=== PATIENT | female | born 1950 | race Caucasian/White ===

== ENCOUNTER 2020-04-21 09:22 | Outpatient (CLI) | payer MEDICARE, SELFPAY ==
[2020-04-21 10:04] LABS: Hemoglobin A1C 6.5 % (<5.7)
[2020-04-21 10:05] LABS: Alanine Aminotransferase 34 U/L (14-59); Albumin Level 3.6 g/dL (3.4-5.0); Alkaline Phosphatase 76 U/L (46-116); Anion Gap 10.8 mmol/L (7-16); Aspartate Amino Transferase 26 U/L (15-37); Bilirubin,Total 0.7 mg/dL (0.00-1.00); Blood Urea Nitrogen 13 mg/dL (7-18); Calcium 8.5 mg/dL (8.5-10.1); Carbon Dioxide 28 mmol/L (21-32); Chloride 104 mmol/L (98-108); Estimated Glomerular Filt Rate > 60; Glucose 124 mg/dL (70-99); Osmolality Calculated 289 mOsm/kg (285-295); Potassium 3.8 mmol/L (3.5-5.1); Sodium 139 mmol/L (136-145); Total Protein 6.6 g/dL (6.4-8.2)
[2020-04-27 08:54] LABS: Creatinine Urine 124.14 mg/dL (40-278)
[2020-04-27 09:05] LABS: Microalbumin Urine Random < 1.3 mg/L
== END 2020-04-21 09:23 | disposition home or self-care (01) ==
LOC: CHSLAB 09:27
PROVIDERS: PCP Internal Medicine; Visit Provider Nurse Practitioner Family
DX: E11.9 Type 2 diabetes mellitus without complications (principal)
CPT/HCPCS: 36415; 80053; 82043; 83036

== ENCOUNTER 2020-04-27 08:08 | Outpatient (CLI) | payer MEDICARE, OTHER, SELFPAY ==
--- NOTE | ~2020-04-27 | DEXA_ITS ---
BMD(1) Young-Adult(2) Age-Matched(3) Region (g/cm2) T-score Z-score WHO Classification L1 1.106 -0.3 0.8 Normal L2 1.202 -0.1 1.0 Normal L3 1.264 0.4 1.5 Normal L4 1.306 0.7 1.8 Normal L1-L4 1.230 0.3 1.4 Normal Trend: L1-L4 Change vs Change vs Measured Age BMD(1) Baseline Previous Date ([age]) (g/cm2) (%) (%) 04[age]27/2020 [age] 1.230 -4.6* 1.2 07/22/2013 [age] 1.216 -5.7* -5.7* 11/05/2009 [age] 1.289 baseline - * - Indicates significant change based on 95% confidence interval. 1 - Statistically 68% of repeat scans fall within 1SD (+- 0.010 g/cm2 for AP Spine L1-L4) 2 - [place] (Combined NHANES (ages 20-30) / Zuffle (ages 20-40)) AP Spine Reference Population (v112) 3 - Matched for Age, Weight (females 25-100 kg), Ethnic 11 - World Health Organization - Definition of Osteoporosis and Osteopenia for Women: Normal = T-score at or above -1.0 SD; Osteopenia = T-score between -1.0 and -2.5 SD; Osteoporosis = T-score at or below -2.5 SD; (WHO definitions only apply when a young healthy Women reference database is used to determine T-scores.) Printed: 04/27/2020 9:03:23 AM (13.60)76:3.00:50.00:12.0 0.00:9.84 0.60x1.05 24.6:%Fat=44.2% 0.00:0.00 0.00:0.00 Filename: [id number] Scan Mode: Standard;OneScan 37.0 Loyalize [id number] BMD(1) Young-Adult(2,7) Age-Matched(3) Region (g/cm2) T-score Z-score WHO Classification Neck Left 0.795 -1.8 -0.5 Osteopenia Right 0.713 -2.3 -1.1 Osteopenia Mean 0.754 -2.0 -0.8 Osteopenia Difference 0.081 -0.6 -0.6 - Total Left 0.893 -0.9 0.1 Normal Right 0.875 -1.1 -0.1 Osteopenia Mean 0.884 -1.0 0.0 Normal Difference 0.017 -0.1 -0.1 - Hip [place] Length Comparison (mm) (Right = 109.5 mm) (Mean = 104.6 mm) (Left = 108.6 mm) Trend: Total Mean Change vs Change vs Measured Age BMD(1) Baseline Previous Date (years) (g/cm2) (%) (%) 04/27/2020 69.8 0.884 -6.9* -6.0* 07/22/2013 [age] 0.940 -1.1 -1.1 11/05/2009 [age] 0.950 baseline - * - Indicates significant change based on 95% confidence interval. 1 - Statistically 68% of repeat scans fall within 1SD (+- 0.010 g/cm2 for DualFemur Total) 2 - [place] (Combined NHANES (ages 20-30) / Zuffle (ages 20-40)) Femur Reference Population (v112) 3 - Matched for Age, Weight (females 25-100 kg), Ethnic 7 - DualFemur Total T-score difference is 0.1. Asymmetry is None. 11 - World Health Organization - Definition of Osteoporosis and Osteopenia for Women: Normal = T-score at or above -1.0 SD; Osteopenia = T-score between -1.0 and -2.5 SD; Osteoporosis = T-score at or below -2.5 SD; (WHO definitions only apply when a young healthy Women reference database is used to determine T-scores.) Printed: 04/27/2020 9:03:23 AM (13.60); Filename: [id number]; Right Femur; 19.0:%Fat=26.6%; Neck Angle (deg)= 57; Scan Mode: Standard 37.0 uGy; Left Femur; 19.9:%Fat=32.0%; Neck Angle (deg)= 50; Scan Mode: Standard 37.0 uGy Stroz Friedberg [id number] Dear Galina Puga, Your patient Fabiana Shoemaker completed a BMD test on 04/27/2020 using the Stroz Friedberg DXA System (analysis version: 13.60) manufactured by [employer]. The following summarizes the results of our evaluation. PATIENT BIOG
--- NOTE | ~2020-04-27 | US_ITS ---
EXAMINATION: US right upper quadrant DATE: 04/27/2020 08:34 INDICATION: Elevated liver enzymes, history of cholecystectomy TECHNIQUE: Multiple grayscale and Doppler ultrasound images of the abdomen were obtained. COMPARISON: None available FINDINGS: The head and and body of the pancreas are normal. The pancreatic tail is obscured by bowel gas. The liver is normal with normal echogenicity and echotexture. No surface nodularity. Normal hepa topetal flow in the main portal vein. The gallbladder is surgically absent. The normal common bile du ct measures 4 mm. IMPRESSION: 1. Normal sonographic study of the gallbladder. Reviewed, dictated and finalized at location B.
== END 2020-04-27 08:09 | disposition home or self-care (01) ==
PROVIDERS: PCP Nurse Practitioner Family; Visit Provider Nurse Practitioner Family
DX: R94.5 Abnormal results of liver function studies (principal); Z78.0 Asymptomatic menopausal state
CPT/HCPCS: 76705; 77080

== ENCOUNTER 2020-11-26 07:01 | Outpatient (CLI) | payer MEDICARE, SELFPAY ==
[2020-11-26 07:12] LABS: Basophils Absolute Auto 0.04 K/mm3 (0.00-0.10); Basophils Percent Auto 0.9 % (0.0-1.0); Eosinophils Absolute Auto 0.35 K/mm3 (0.02-0.50); Eosinophils Percent Auto 7.8 % (1.0-6.0); Hematocrit 41.5 % (35.0-42.0); Immature Granulocyte Absolute 0.01 K/mm3 (0.00-0.00); Immature Granulocyte Percent A 0.2 % (0.0-0.0); Lymphocytes Absolute Auto 1.78 K/mm3 (1.10-4.50); Lymphocytes Percent Auto 39.5 % (18.0-42.0); Mean Corpuscular HGB Conc 33.7 g/dL (32.0-36.0); Mean Corpuscular Hemoglobin 30.7 pg (27.0-31.0); Mean Platelet Volume 9.4 fl (9.2-11.8); Monocytes Absolute Auto 0.49 K/mm3 (0.10-0.90); Monocytes Percent Auto 10.9 % (2.0-11.0); Neutrophils Absolute Auto 1.8 K/mm3 (1.7-7.2); Neutrophils Percent Auto 40.7 % (50.0-70.0); Platelet Count Result 205 K/mm3 (150-420); Red Blood Count 4.56 M/mm3 (4.20-5.40); White Blood Count 4.5 K/mm3 (4.8-10.8)
[2020-11-26 07:21] LABS: Hemoglobin A1C 6.7 % (<5.7)
[2020-11-26 08:25] LABS: Alanine Aminotransferase 42 U/L (14-59); Albumin Level 3.9 g/dL (3.4-5.0); Alkaline Phosphatase 78 U/L (46-116); Anion Gap 12 mmol/L (8-16); Aspartate Amino Transferase 27 U/L (15-37); Bilirubin,Total 0.8 mg/dL (0.00-1.00); Blood Urea Nitrogen 11 mg/dL (7-18); Calcium 8.9 mg/dL (8.5-10.1); Carbon Dioxide 25 mmol/L (21-32); Chloride 104 mmol/L (98-108); Cholesterol 226 mg/dL (0-200); Estimated Glomerular Filt Rate > 60; Glucose 123 mg/dL (70-99); HDL Direct 46 mg/dL (40-60); LDL Cholesterol Calculated 147 mg/dL (<130); Osmolality Calculated 292 mOsm/kg (285-295); Potassium 3.6 mmol/L (3.5-5.1); Sodium 141 mmol/L (136-145); Thyroid Stimulating Hormone 3.48 uIU/mL (0.36-3.74); Total Protein 6.8 g/dL (6.4-8.2); Triglycerides 166 mg/dL (0-150)
== END 2020-11-26 07:02 | disposition home or self-care (01) ==
LOC: CHSLAB 07:02
PROVIDERS: PCP Internal Medicine; Visit Provider Internal Medicine
DX: E11.9 Type 2 diabetes mellitus without complications (principal); I10 Essential (primary) hypertension; E78.5 Hyperlipidemia, unspecified
CPT/HCPCS: 36415; 80053; 80061; 83036; 84443; 85025

== ENCOUNTER 2021-10-09 07:11 | Outpatient (CLI) | payer MEDICARE, SELFPAY ==
[2021-10-09 07:28] LABS: Basophils Absolute Auto 0.03 K/mm3 (0.00-0.10); Basophils Percent Auto 0.6 % (0.0-1.0); Eosinophils Absolute Auto 0.26 K/mm3 (0.02-0.50); Eosinophils Percent Auto 5.5 % (1.0-6.0); Hematocrit 43.3 % (35.0-42.0); Hemoglobin 14.1 g/dL (11.7-13.8); Immature Granulocyte Absolute 0.01 K/mm3 (0.00-0.00); Immature Granulocyte Percent A 0.2 % (0.0-0.0); Lymphocytes Absolute Auto 2.05 K/mm3 (1.10-4.50); Lymphocytes Percent Auto 43.4 % (18.0-42.0); Mean Corpuscular HGB Conc 32.6 g/dL (32.0-36.0); Mean Corpuscular Hemoglobin 30.1 pg (27.0-31.0); Mean Corpuscular Volume 92.5 fL (78.0-102.0); Mean Platelet Volume 9.8 fl (9.2-11.8); Monocytes Percent Auto 10.6 % (2.0-11.0); Neutrophils Absolute Auto 1.9 K/mm3 (1.7-7.2); Neutrophils Percent Auto 39.7 % (50.0-70.0); Platelet Count Result 213 K/mm3 (150-420); Red Blood Count 4.68 M/mm3 (4.20-5.40); Red Cell Distribution Width 11.9 % (11.6-14.4); White Blood Count 4.7 K/mm3 (4.8-10.8)
[2021-10-09 08:36] LABS: Alanine Aminotransferase 49 U/L (14-59); Albumin Level 3.9 g/dL (3.4-5.0); Alkaline Phosphatase 92 U/L (46-116); Anion Gap 10 mmol/L (8-16); Aspartate Amino Transferase 31 U/L (15-37); Bilirubin,Total 0.6 mg/dL (0.00-1.00); Blood Urea Nitrogen 14 mg/dL (7-18); Carbon Dioxide 30 mmol/L (21-32); Chloride 103 mmol/L (98-108); Cholesterol 227 mg/dL (0-200); Estimated Glomerular Filt Rate > 60; Glucose 121 mg/dL (70-99); HDL Direct 44 mg/dL (40-60); LDL Cholesterol Calculated 153 mg/dL (<130); Osmolality Calculated 297 mOsm/kg (285-295); Potassium 3.7 mmol/L (3.5-5.1); Sodium 143 mmol/L (136-145); Thyroid Stimulating Hormone 3.01 uIU/mL (0.36-3.74); Total Protein 6.9 g/dL (6.4-8.2); Triglycerides 152 mg/dL (0-150)
[2021-10-09 09:57] LABS: Add Urine Microscopic? NO; Appearance Urine Clear (Clear); Bilirubin Urine Negative (Negative); Blood Urine Negative (Negative); Color Urine Light Yellow (Yellow); Glucose Urine UA Negative (Negative); Ketones Urine Negative (Negative); Leukocyte Esterase Ur Negative LEU/UL (Negative); Nitrate Urine Negative (Negative); Protein Urine Negative (Negative); Urobilinogen Urine 0.2 mg/dL (0.2-1.0)
[2021-10-10 10:17] LABS: Hemoglobin A1C 6.7 % (<5.7)
[2021-10-12 04:58] LABS: Vitamin D 25 Hydroxy 66 ng/mL (30-100)
== END 2021-10-09 07:12 | disposition home or self-care (01) ==
LOC: CHSLAB 07:13
PROVIDERS: PCP Internal Medicine; Visit Provider Nurse Practitioner Family
DX: E78.5 Hyperlipidemia, unspecified (principal); I10 Essential (primary) hypertension; E55.9 Vitamin D deficiency, unspecified; E11.9 Type 2 diabetes mellitus without complications
CPT/HCPCS: 36415; 80053; 80061; 81003; 82306; 83036; 84443; 85025

== ENCOUNTER 2022-05-22 13:02 | Outpatient (CLI) | payer MEDICARE, OTHER, SELFPAY ==
--- NOTE | ~2022-05-22 | DEXA_ITS ---
Bone Density Report Name: LUX CABRAL Age: 71 Sex: Female Ethnicity: White Date of : 1950 Indication: postmenopausal; screening for osteoporosis; height loss; asthma or emphysema; Referring Provider: Vivien, Galina Parson Study: Bone densitometry was performed. Exam Date: May 22, 2022 Accession number: [id number] Bone Density: Region BMD T-score Z-score Classification AP Spine(L1-L4) 1.007 -0.4 1.8 Normal Femoral Neck (Left) 0.645 -1.8 0.0 Osteopenia Total Hip (Left) 0.824 -1.0 0.6 Normal Femoral Neck (Right) 0.570 -2.5 -0.7 Osteoporosis Total Hip (Right) 0.805 -1.1 0.4 Osteopenia Femoral Neck Mean 0.607 -2.2 -0.3 Osteopenia Total Hip Mean 0.815 -1.0 0.5 Normal World Health Organization criteria for BMD impression classify patients as: Normal (T-score at or above -1.0), Osteopenia (T-score between -1.0 and -2.5), or Osteoporosis (T-score at or below -2.5). 10-year Fracture Risk: FRAX not reported because: Some T-score for Spine Total or Hip Total or Femoral Neck at or below -2.5 Clinical Information Provided by Patient: Has used the following medications: Vitamin D Has the following medical conditions: Asthma or Emphysema Patient maximum height was 65 Menopause Age: 51 No regular weight bearing exercise Does not regularly consume dairy products Onset of menses at age 14 Number of children 3 Impression: The patient has osteoporosis, based on the Right Femoral Neck T-score. Discussion: INCREASED RISK OF FRACTURE. BONE DENSITY IS UNDESIRABLY LOW AT ONE OR MORE SKELETAL SITES, CONSISTENT WITH POSTMENOPAUSAL OSTEOPOROSIS. This patient's lowest T-score meets the World Health Organization's (WHO) criteria for osteoporosis at one or more sites (T-score -2.5 or below). In untreated patients, the risk of osteoporotic fracture increases approximately two-fold for each 1.0 SD decrease in T-score. Low bone density is not the only risk factor for fracture; also consider factors such as patient's age, frailty or poor health, risk of falling, risk of injury, previous osteoporotic fracture, family history of osteoporosis, cigarette smoking, low body weight, etc. Not everyone with low bone mineral density has osteoporosis; osteomalacia and other metabolic bone disorders should also be considered. Patients who have osteoporosis should be evaluated for specific diseases and conditions (secondary causes) that may cause or contribute to bone loss. The [place] Association of Clinical Endocrinologists (AACE) and National Osteoporosis Foundation (NOF) recommend pharmacologic intervention for all postmenopausal women whose T-score is in this range. The patient should follow a healthful lifestyle (good nutrition with adequate calcium and vitamin D, and appropriate weight-bearing exerci
== END 2022-05-22 13:03 | disposition home or self-care (01) ==
LOC: CHSIMG 13:15
PROVIDERS: PCP Internal Medicine; Visit Provider Nurse Practitioner Family
DX: M85.80 Other specified disorders of bone density and structure, unspecified site (principal); Z78.0 Asymptomatic menopausal state
CPT/HCPCS: 77080

== ENCOUNTER 2022-06-13 07:10 | Outpatient (CLI) | payer MEDICARE, SELFPAY ==
[2022-06-13 07:34] LABS: Hemoglobin A1C 6.9 % (<5.7)
[2022-06-13 07:42] LABS: Cholesterol 197 mg/dL (0-200); HDL Direct 58 mg/dL (40-60); LDL Cholesterol Calculated 120 mg/dL (<130); Triglycerides 97 mg/dL (0-150)
== END 2022-06-13 07:11 | disposition home or self-care (01) ==
LOC: CHSLAB 07:12
PROVIDERS: PCP Internal Medicine; Visit Provider Nurse Practitioner Family
DX: E78.5 Hyperlipidemia, unspecified (principal); R73.01 Impaired fasting glucose
CPT/HCPCS: 36415; 80061; 83036

== ENCOUNTER 2022-09-01 14:16 | Outpatient (CLI) | payer MEDICARE, OTHER, SELFPAY ==
--- NOTE | 2022-09-01 14:29 | ECG_ITS ---
Measurements Intervals [place] Rate: 74 P: 4 LA: 160 QRS: -12 QRSD: 100 T: 66 QT: 409 QTc: 456 Interpretive Statements SINUS RHYTHM WITH SINUS ARRHYTHMIA NO PREVIOUS ECG AVAILABLE FOR COMPARISON Electronically Signed On 09-02-2022 19:14:43 LOCKS TENDER by Mely Molina M.D.
--- NOTE | 2022-09-01 15:22 | ECHO_ITS ---
Patient Info Name: Fabiana Shoemaker Age: 72 years : 1950 Gender: Female Ht: 63 in Wt: 180 lbs BSA: 1.94 m2 HR: 78 bpm BP: 174 / 94 mmHg Technical Quality: Good Exam Date: 09/01/2022 3:17 PM Exam Location: [facility] Patient Status: Outpatient Admit Date: 09/01/2022 Staff Ordering Physician: Shabbir Montoya MD Administrative Sales Assistant: Domenico House RDCS, RT Attending Provider: Shabbir Montoya MD Exam Type: CA echo doppler color flow Study Info Indications R01.1 - Cardiac murmur, unspecified Complete two-dimensional, color flow and Doppler transthoracic echocardiogram is performed. Strain analysis performed. Summary 1. Complete two-dimensional, color flow and Doppler transthoracic echocardiogram is performed. 2. Left ventricular chamber dimension is normal. 3. Left ventricular systolic function is normal, estimated at 60-65%. 4. There is moderately increased left ventricular wall thickness. 5. The left ventricular diastolic function is grade I diastolic dysfunction. 6. E/e' 11 is mildly elevated. 7. Global longitudinal strain is normal at -17.3%. 8. There is severe aortic valve sclerosis. 9. There is mild aortic valve stenosis with a peak velocity of 226 cm/s, mean gradient of 9 mmHg, and aortic valve area of 1.8 cm2. 10. There is trace aortic valve regurgitation. 11. The mitral valve has severely calcified annulus. 12. There is trace mitral valve regurgitation. 13. No pulmonary hypertension, estimated pulmonary arterial systolic pressure is 33 mmHg. 14. There is trace pulmonic regurgitation. Left Ventricle E/e' 11 is mildly elevated. Global longitudinal strain is normal at -17.3%. Left ventricular chamber dimension is normal. Left ventricular systolic function is normal, estimated at 60-65%. There is moderately increased left ventricular wall thickness. The left ventricular diastolic function is grade I diastolic dysfunction. Right Ventricle Right ventricular systolic function is normal and with normal TAPSE 2.3 cm. Right ventricular chamber dimension is normal. Left Atria Left atrial chamber dimension is normal. Right Atria Right atrial chamber dimension is normal. Aortic Valve The aortic valve is trileaflet. There is severe aortic valve sclerosis. There is mild aortic valve stenosis with a peak velocity of 226 cm/s, mean gradient of 9 mmHg, and aortic valve area of 1.8 cm2. There is trace aortic valve regurgitation. Pulmonic Valve There is trace pulmonic regurgitation. Mitral Valve The mitral valve has severely calcified annulus. There is no mitral valve stenosis. There is trace mitral valve regurgitation. Tricuspid Valve There is no tricuspid valve regurgitation. No pulmonary hypertension, estimated pulmonary arterial systolic pressure is 33 mmHg. Pericardium/Pleural There is no pericardial effusion. Inferior Vena Cava Normal inferior vena cava with >50% collapse upon inspiration consistent with normal right atrial pressure, 5 mmHg. Aorta The aortic root size at the sinus of Valsalva is normal. Left Ventricular Outflow Tract Name Value Normal LVOT 2D LVOT Diameter 2.0 cm LVOT Doppler
== END 2022-09-01 14:17 | disposition home or self-care (01) ==
LOC: CHSIMG 14:18
PROVIDERS: PCP Internal Medicine; Visit Provider Internal Medicine
DX: R01.1 Cardiac murmur, unspecified (principal); I10 Essential (primary) hypertension
CPT/HCPCS: 93005; 93306

== ENCOUNTER 2022-10-01 07:15 | Outpatient (CLI) | payer MEDICARE, SELFPAY ==
[2022-10-01 08:18] LABS: Hemoglobin A1C 6.7 % (<5.7)
[2022-10-01 09:04] LABS: Alanine Aminotransferase 23 U/L (14-59); Albumin Level 3.5 g/dL (3.4-5.0); Alkaline Phosphatase 66 U/L (46-116); Anion Gap 9 mmol/L (8-16); Aspartate Amino Transferase 21 U/L (15-37); Bilirubin,Total 0.5 mg/dL (0.00-1.00); Blood Urea Nitrogen 13 mg/dL (7-18); Calcium 8.4 mg/dL (8.5-10.1); Carbon Dioxide 28 mmol/L (21-32); Chloride 104 mmol/L (98-108); Estimated Glomerular Filt Rate > 60; Glucose 114 mg/dL (70-99); Osmolality Calculated 293 mOsm/kg (285-295); Potassium 3.8 mmol/L (3.5-5.1); Sodium 141 mmol/L (136-145); Total Protein 6.3 g/dL (6.4-8.2)
== END 2022-10-01 07:16 | disposition home or self-care (01) ==
LOC: CHSLAB 07:17
PROVIDERS: PCP Internal Medicine; Visit Provider Nurse Practitioner Family
DX: E11.9 Type 2 diabetes mellitus without complications (principal)
CPT/HCPCS: 36415; 80053; 83036

== ENCOUNTER 2023-02-10 07:13 | Outpatient (CLI) | payer MEDICARE, SELFPAY ==
[2023-02-10 08:33] LABS: Alanine Aminotransferase 25 U/L (14-59); Cholesterol 170 mg/dL (0-200); HDL Direct 55 mg/dL (40-60); LDL Cholesterol Calculated 82 mg/dL (<130); Triglycerides 167 mg/dL (0-150)
== END 2023-02-10 07:14 | disposition home or self-care (01) ==
LOC: CHSLAB 07:15
PROVIDERS: PCP Internal Medicine; Visit Provider Internal Medicine Cardiovascular Disease
DX: E78.5 Hyperlipidemia, unspecified (principal); Z79.899 Other long term (current) drug therapy
CPT/HCPCS: 36415; 80061; 84460

== ENCOUNTER 2023-04-17 07:01 | Outpatient (CLI) | payer MEDICARE, SELFPAY ==
[2023-04-17 07:26] LABS: Basophils Absolute Auto 0.03 K/mm3 (0.00-0.10); Basophils Percent Auto 0.8 % (0.0-1.0); Eosinophils Absolute Auto 0.22 K/mm3 (0.02-0.50); Eosinophils Percent Auto 5.6 % (1.0-6.0); Hematocrit 38.5 % (35.0-42.0); Hemoglobin 13.3 g/dL (11.7-13.8); Immature Granulocyte Absolute 0.01 K/mm3 (0.00-0.00); Immature Granulocyte Percent A 0.3 % (0.0-0.0); Lymphocytes Absolute Auto 1.33 K/mm3 (1.10-4.50); Lymphocytes Percent Auto 33.7 % (18.0-42.0); Mean Corpuscular HGB Conc 34.5 g/dL (32.0-36.0); Mean Corpuscular Hemoglobin 31.5 pg (27.0-31.0); Mean Corpuscular Volume 91.2 fL (78.0-102.0); Mean Platelet Volume 9.8 fl (9.2-11.8); Monocytes Absolute Auto 0.44 K/mm3 (0.10-0.90); Monocytes Percent Auto 11.1 % (2.0-11.0); Neutrophils Absolute Auto 1.9 K/mm3 (1.7-7.2); Neutrophils Percent Auto 48.5 % (50.0-70.0); Platelet Count Result 175 K/mm3 (150-420); Red Blood Count 4.22 M/mm3 (4.20-5.40); Red Cell Distribution Width 11.6 % (11.6-14.4)
[2023-04-17 07:35] LABS: Hemoglobin A1C 5.5 % (<5.7)
[2023-04-17 08:02] LABS: Alanine Aminotransferase 33 U/L (14-59); Albumin Level 3.8 g/dL (3.4-5.0); Alkaline Phosphatase 72 U/L (46-116); Anion Gap 10 mmol/L (8-16); Aspartate Amino Transferase 25 U/L (15-37); Bilirubin,Total 0.5 mg/dL (0.00-1.00); Blood Urea Nitrogen 15 mg/dL (7-18); Calcium 8.6 mg/dL (8.5-10.1); Carbon Dioxide 26 mmol/L (21-32); Chloride 104 mmol/L (98-108); Estimated Glomerular Filt Rate > 60; Glucose 103 mg/dL (70-99); Osmolality Calculated 290 mOsm/kg (285-295); Potassium 3.8 mmol/L (3.5-5.1); Sodium 140 mmol/L (136-145); Thyroid Stimulating Hormone 2.47 uIU/mL (0.36-3.74); Total Protein 6.3 g/dL (6.4-8.2)
== END 2023-04-17 07:02 | disposition home or self-care (01) ==
LOC: CHSLAB 07:02
PROVIDERS: PCP Internal Medicine; Visit Provider Nurse Practitioner Family
DX: I10 Essential (primary) hypertension (principal); E11.9 Type 2 diabetes mellitus without complications
CPT/HCPCS: 36415; 80053; 83036; 84443; 85025

== ENCOUNTER 2023-04-24 07:44 | Outpatient (CLI) | payer MEDICARE, OTHER, SELFPAY ==
[2023-04-24] MEDS: ZOLEDRONIC ACID 5 MG/100 ML 100 ML 400 MG IVPB (09:05)
[2023-04-24 09:16] VITALS: BMI 32.5
[2023-04-24 09:17] VITALS: BP 128/68; PULSE 78; RESP 14; TEMP 36.6; O2SAT 97
--- NOTE | 2023-04-24 09:26 | PC.NURSE ---
Patient here for yearly Reclast infusion. Education given. All concerns answered. IV Reclast administered. SEE MAR. Tolerated well. Safe exit of hospital per self/amb.
== END 2023-04-24 07:45 | disposition home or self-care (01) ==
LOC: CHSTREATRM 07:50
PROVIDERS: PCP Internal Medicine; Visit Provider Internal Medicine
DX: M81.0 Age-related osteoporosis without current pathological fracture (principal)
CPT/HCPCS: 96374; J3489

== ENCOUNTER 2023-05-01 11:44 | Outpatient (CLI) | payer MEDICARE, SELFPAY ==
[2023-05-01 11:59] LABS: Basophils Absolute Auto 0.02 K/mm3 (0.00-0.10); Basophils Percent Auto 0.4 % (0.0-1.0); Eosinophils Absolute Auto 0.17 K/mm3 (0.02-0.50); Eosinophils Percent Auto 3.3 % (1.0-6.0); Hematocrit 39.9 % (35.0-42.0); Immature Granulocyte Absolute 0.01 K/mm3 (0.00-0.00); Immature Granulocyte Percent A 0.2 % (0.0-0.0); Lymphocytes Absolute Auto 0.82 K/mm3 (1.10-4.50); Lymphocytes Percent Auto 16.1 % (18.0-42.0); Mean Corpuscular HGB Conc 35.1 g/dL (32.0-36.0); Mean Corpuscular Hemoglobin 31.5 pg (27.0-31.0); Mean Corpuscular Volume 89.9 fL (78.0-102.0); Mean Platelet Volume 9.4 fl (9.2-11.8); Monocytes Absolute Auto 0.43 K/mm3 (0.10-0.90); Monocytes Percent Auto 8.4 % (2.0-11.0); Neutrophils Absolute Auto 3.6 K/mm3 (1.7-7.2); Neutrophils Percent Auto 71.6 % (50.0-70.0); Platelet Count Result 216 K/mm3 (150-420); Red Blood Count 4.44 M/mm3 (4.20-5.40); Red Cell Distribution Width 11.5 % (11.6-14.4); White Blood Count 5.1 K/mm3 (4.8-10.8)
[2023-05-01 12:48] LABS: Anion Gap 12 mmol/L (8-16); Blood Urea Nitrogen 12 mg/dL (7-18); CRP 2.8 mg/dL (0.0-0.9); Calcium 8.7 mg/dL (8.5-10.1); Carbon Dioxide 25 mmol/L (21-32); Chloride 102 mmol/L (98-108); Estimated Glomerular Filt Rate > 60; Glucose 96 mg/dL (70-99); Osmolality Calculated 287 mOsm/kg (285-295); Potassium 4.3 mmol/L (3.5-5.1); Sodium 139 mmol/L (136-145)
[2023-05-01 13:00] LABS: Rheumatoid Factor Screen Negative (Negative)
[2023-05-01 13:01] LABS: Erythrocyte Sedimentation Rate 42 mm/hr (0-20)
[2023-05-07 22:04] LABS: Anti Cyclic Citrullinated Pept <16 Units (<20)
== END 2023-05-01 11:45 | disposition home or self-care (01) ==
PROVIDERS: PCP Internal Medicine; Visit Provider Internal Medicine
DX: N28.89 Other specified disorders of kidney and ureter (principal)
CPT/HCPCS: 36415; 80048; 85025; 85652; 86140; 86200; 86430

== ENCOUNTER 2023-05-15 08:00 | Outpatient (RCR) | payer MEDICARE, OTHER, SELFPAY | END 2023-05-15 13:49 | disposition home or self-care (01) | PROVIDERS: PCP Internal Medicine; Visit Provider Specialist | DX: Z95.5 Presence of coronary angioplasty implant and graft (principal) | CPT/HCPCS: 93798 ==

== ENCOUNTER 2023-11-18 07:11 | Outpatient (CLI) | payer MEDICARE, SELFPAY ==
[2023-11-18 07:29] LABS: Appearance Urine Clear (Clear); Bilirubin Urine Negative (Negative); Blood Urine Negative (Negative); Color Urine Light Yellow (Yellow); Glucose Urine UA Negative (Negative); Ketones Urine Negative (Negative); Leukocyte Esterase Ur 3+ (Negative); Nitrate Urine Negative (Negative); Protein Urine Negative (Negative); Specific Grav Ur 1.015 (1.010-1.020); Urobilinogen Urine 0.2 mg/dL (0.2-1.0)
[2023-11-18 07:29] LABS: Basophils Absolute Auto 0.03 K/mm3 (0.00-0.10); Basophils Percent Auto 0.7 % (0.0-1.0); Eosinophils Absolute Auto 0.24 K/mm3 (0.02-0.50); Eosinophils Percent Auto 5.6 % (1.0-6.0); Hematocrit 40.2 % (35.0-42.0); Hemoglobin 13.8 g/dL (11.7-13.8); Immature Granulocyte Absolute 0.01 K/mm3 (0.00-0.00); Immature Granulocyte Percent A 0.2 % (0.0-0.0); Lymphocytes Absolute Auto 1.36 K/mm3 (1.10-4.50); Mean Corpuscular HGB Conc 34.3 g/dL (32.0-36.0); Mean Corpuscular Hemoglobin 30.8 pg (27.0-31.0); Mean Corpuscular Volume 89.7 fL (78.0-102.0); Mean Platelet Volume 9.4 fl (9.2-11.8); Monocytes Absolute Auto 0.47 K/mm3 (0.10-0.90); Monocytes Percent Auto 11.1 % (2.0-11.0); Neutrophils Absolute Auto 2.1 K/mm3 (1.7-7.2); Neutrophils Percent Auto 50.4 % (50.0-70.0); Platelet Count Result 181 K/mm3 (150-420); Red Blood Count 4.48 M/mm3 (4.20-5.40); Red Cell Distribution Width 11.9 % (11.6-14.4); White Blood Count 4.3 K/mm3 (4.8-10.8)
[2023-11-18 07:33] LABS: Add Urine Microscopic? YES; Bacteria Urine 1+ /hpf; RBC Urine None seen /hpf (0-2); Squamous Epithelial Cell Urine Moderate /hpf (Few)
[2023-11-18 07:35] LABS: Creatinine Urine 104.51 mg/dL (40-278); MALB Creatinine Ratio 30.1 mg/g (0-30); Microalbumin Urine Random 31.5 mg/L
[2023-11-18 07:41] LABS: Hemoglobin A1C 5.7 % (<5.7)
[2023-11-18 08:27] LABS: Erythrocyte Sedimentation Rate 18 mm/hr (0-20)
[2023-11-18 08:34] LABS: Alanine Aminotransferase 21 U/L (14-59); Albumin Level 3.9 g/dL (3.4-5.0); Alkaline Phosphatase 57 U/L (46-116); Anion Gap 12 mmol/L (8-16); Aspartate Amino Transferase 20 U/L (15-37); Bilirubin,Total 0.6 mg/dL (0.00-1.00); Blood Urea Nitrogen 12 mg/dL (7-18); Calcium 8.5 mg/dL (8.5-10.1); Carbon Dioxide 26 mmol/L (21-32); Chloride 105 mmol/L (98-108); Cholesterol 163 mg/dL (0-200); Creatine Kinase 107 U/L (26-192); Estimated Glomerular Filt Rate > 60; Glucose 114 mg/dL (70-99); HDL Direct 67 mg/dL (40-60); LDL Cholesterol Calculated 76 mg/dL (<130); Osmolality Calculated 296 mOsm/kg (285-295); Potassium 3.9 mmol/L (3.5-5.1); Sodium 143 mmol/L (136-145); Total Protein 6.5 g/dL (6.4-8.2); Triglycerides 99 mg/dL (0-150)
[2023-11-18 08:36] LABS: CRP < 0.5 mg/dL (0.0-0.9)
== END 2023-11-18 07:12 | disposition home or self-care (01) ==
LOC: CHSLAB 07:12
PROVIDERS: PCP Internal Medicine; Visit Provider Internal Medicine
DX: M35.05 Sjogren syndrome with inflammatory arthritis (principal); E78.2 Mixed hyperlipidemia; E11.9 Type 2 diabetes mellitus without complications; I10 Essential (primary) hypertension; M81.0 Age-related osteoporosis without current pathological fracture
CPT/HCPCS: 36415; 80053; 80061; 81001; 82043; 82550; 83036; 85025; 85652; 86140

== ENCOUNTER 2023-11-26 11:26 | Outpatient (CLI) | payer MEDICARE, OTHER, SELFPAY ==
--- NOTE | ~2023-11-26 | XR_ITS ---
EXAMINATION: XR lumbar spine 2-3V DATE: 11/26/2023 11:49 INDICATION: Low back pain after fall TECHNIQUE: Anteroposterior and lateral views of the lumbar spine, and cone-down lateral view of the l umbosacral junction were obtained. COMPARISON: 10/01/2010 FINDINGS: There are 4 mm of stable anterolisthesis of L4 on L5. The vertebral body heights are mainta ined. There is mild loss of intervertebral disc space height throughout the lumbar spine. Small degen erative osteophytes project from the anterior endplates of multiple vertebral bodies. There is severe facet joint osteoarthritis at L3-4, L4-5, and L5-S1. Phleboliths are noted in the pelvis. IMPRESSION: 1. Moderate lumbar spondylosis without acute findings or significant interval change. Reviewed, dictated and finalized at location L. R HAND IMPRESSION: 1. Moderate lumbar spondylosis without acute findings or significant interval yakov kennedy
--- NOTE | ~2023-11-26 | XR_ITS ---
AP view of the pelvis and AP and lateral views of the left hip Clinical history: Pain Findings: No acute fracture or dislocation is seen. Osseous alignment is anatomic. There is mild left hip joint degenerative change. Right hip joint is preserved.. Soft tissues are unremarkable. Impression: Mild degenerative change of the left hip joint. Reviewed, dictated and finalized at location . NTORY CONTROL SUPERVISOR Impression: Mild degenerative change of the left hip joint.
== END 2023-11-26 11:27 | disposition home or self-care (01) ==
LOC: CHSIMG 11:30
PROVIDERS: PCP Internal Medicine; Visit Provider Internal Medicine
DX: S39.92XA Unspecified injury of lower back, initial encounter (principal); M43.06 Spondylolysis, lumbar region
CPT/HCPCS: 72100; 73502

== ENCOUNTER 2023-12-01 07:55 | Outpatient (RCR) | payer MEDICARE, OTHER, SELFPAY ==
--- NOTE | 2023-12-01 08:48 | OPREHPOC ---
Outpatient Therapy Plan of Care This is a Multidisciplinary Plan of Care that may contain components documented by all disciplines (PT, OT, and ST.) PT Problem 1 PT Problem #1 Knowledge Deficit PT Goal 1 Goal 1. independent and compliant with HEP Target Visit 4 PT Problem 2 PT Problem #2 Pain PT Goal 1 Goal 1. decrease pain at worst to 3/10 in the lower back Target Visit 8 PT Problem 3 PT Problem #3 Impaired Range of Motion PT Goal 1 Goal 1. improve active lumbar extension to 10 degrees 2. improve active L lumbar side bending to 30 degrees Target Visit 8 PT Problem 4 PT Problem #4 Impaired Strength PT Goal 1 Goal 1. improve core strength 3+/5 or better 2. improve bilateral hip strength to 4+/5 or better Target Visit 8 PT Problem 5 PT Problem #5 Impaired Functional Mobil PT Goal 1 Goal 1. oswestry to display less than 30% functional deficits 2. LEFS to display less than 30% functional deficits 3. patient to sit in car for 5 hours to see family without having to stop due to pain 4. patient to sleep through the night 5 nights a week without being woken up due to pain Target Visit 8
--- NOTE | 2023-12-01 08:48 | PTOPEVAL1 ---
Assessment and note entered by JT File, PT Evaluation Information Assessment Status Evaluation Diagnosis low back pain, L hip pain Onset 11/21/23 Subjective Information patient reports she has pain from the lower back down the L LE. she reports she took Toradol last night to fall asleep. she reports the pain started around 11/21/23. she reports she fell onto her knees and her hands while walking. she reports she stubbed her toe on a step and went down forward. she reports she does not have any numbness/ tingling in the lower back or the L LE. she reports she has increased pain/symptoms with activity. she reports other times it hurts at rest . she reports she is unable to sit/drive for long time. she reports she went up to see her daughter by [place] and had to stop several times due to pain. she reports it is better since seeing the doctor. she has had xrays of the lower back/hip. Reported Pain Level Pain Score 4: Self Report Assessment PT Clinical Summary mrs. thomas is a 73 yo woman who presents to skilled PT services for evaluation and treatment of pain in the lower back and down the L LE. her symptoms are increased with prolonged sitting position, movement to the L side and extension, and with bed mobility/rolling. she presents with deficits in lumbar active rom, hip strength, and functional activity performance per the oswestry and LEFS. her signs and symptoms are consistent with a L lumbar facet hypertrophy/DDD. continued skilled PT is indicated to improve her objective/ functional deficits and allow patient to return to prior level functional activities. Plan of Care Interventions Electrical Stimulation,Hot Pack/Cold Pack,Manual Therapy,Mechanical Traction,Neuro Re-education, Patient/Caregiver Educati,Therapeutic Activities, Therapeutic Exercise,Other Other Interventions dry needling PT Services Indicated Yes Treatment Frequency and 2x weekly for 8 visits Duration These treatments will address the objective and functional deficits as defined above. The patient will be advanced safely and appropriately in order for the patient to progress towards his/her prior level of function. Additional exercises will be introduced and as well as a comprehensive home exercise program upon discharge, if needed, ?to ensure carryover of functional gains achieved in the clinic. This treatment plan has been reviewed and agreement upon by the patient.
--- NOTE | 2023-12-25 08:46 | OPREHPOC ---
Outpatient Therapy Plan of Care This is a Multidisciplinary Plan of Care that may contain components documented by all disciplines (PT, OT, and ST.) PT Problem 1 PT Problem #1 Knowledge Deficit PT Goal 1 Goal 1. independent and compliant with HEP Target Visit 4 Progress Met PT Problem 2 PT Problem #2 Pain PT Goal 1 Goal 1. decrease pain at worst to 3/10 in the lower back Target Visit 8 Progress Met PT Problem 3 PT Problem #3 Impaired Range of Motion PT Goal 1 Goal 1. improve active lumbar extension to 10 degrees 2. improve active L lumbar side bending to 30 degrees Target Visit 8 Progress Met PT Problem 4 PT Problem #4 Impaired Strength PT Goal 1 Goal 1. improve core strength 3+/5 or better 2. improve bilateral hip strength to 4+/5 or better Target Visit 8 Progress Met PT Problem 5 PT Problem #5 Impaired Functional Mobil PT Goal 1 Goal 1. oswestry to display less than 30% functional deficits 2. LEFS to display less than 30% functional deficits 3. patient to sit in car for 5 hours to see family without having to stop due to pain 4. patient to sleep through the night 5 nights a week without being woken up due to pain Target Visit 8 Progress Met
--- NOTE | 2023-12-25 08:46 | PTOPDC ---
Assessment and note entered by Stephany Barrett DPT Evaluation Information Assessment Status Discharge Diagnosis low back pain, L hip pain Onset 11/21/23 Subjective Information patient reports her pain is much improved. she states she is able to sleep in bed. she has only had increase in pain after lifting a heavy box. she reports HEP is going well. she is leaving for vacation next week and will be riding in a car for a long period of time. Reported Pain Level Pain Score 2: Self Report Assessment PT Clinical Summary Mrs. Shoemaker attended 8 visits of skilled PT with all goals met. She has improve LE strength, improved core strength and improved lumbar ROM. She has been able to return to sleeping at PLOF as well as complete house hold tasks. She reports independence with HEP and is appropriate for DC at this time. Plan of Care PT Services Indicated No
== END 2023-12-25 09:05 | disposition home or self-care (01) ==
LOC: CHSPT 07:55
PROVIDERS: Visit Provider Internal Medicine
DX: M54.50 Low back pain, unspecified (principal); M25.552 Pain in left hip
CPT/HCPCS: 97014; 97110; 97161; G0283

== ENCOUNTER 2023-12-09 12:11 | Outpatient (CLI) | payer MEDICARE, OTHER, SELFPAY ==
--- NOTE | ~2023-12-09 | US_ITS ---
EXAMINATION: US carotid duplex BI DATE: 12/09/2023 12:36 INDICATION: Carotid stenosis TECHNIQUE: Grayscale, color Doppler, and pulsed Doppler images of the cervical carotid arteries were obtained. The degree of vessel stenosis is placed in one of the following categories: normal, <50%, 5 0-69%, >=70% but less than near-occlusion, near-occlusion, or total occlusion. Note that percent sten osis relative to normal distal artery lumen diameter is indirectly measured from velocity measurement s as described by Robinson, et al. Radiology 2003; 229:340-346. COMPARISON: None. FINDINGS: RIGHT: The right common carotid artery (CCA) peak systolic velocity (PSV) is 48 cm/s. The right internal car otid artery (ICA) PSV is 61 cm/s. The right ICA end-diastolic velocity (EDV) is 25 cm/s. The right IC A/CCA PSV ratio is 1.3. Grayscale and color Doppler images yield an estimate of <50% diameter reducti on from plaque in the ICA. The external carotid artery (ECA) PSV is 41 cm/s. There is antegrade flow in the right vertebral artery. LEFT: The left CCA PSV is 59 cm/s. The left ICA PSV is 95 cm/s. The left ICA EDV is 33 cm/s. The left ICA/C CA PSV ratio is 1.6. Grayscale and color Doppler images yield an estimate of <50% diameter reduction from plaque in the ICA. The ECA PSV is 49 cm/s. There is antegrade flow in the left vertebral artery. IMPRESSION: 1. <50% stenosis in the right internal carotid artery. 2. <50% stenosis in the left internal carotid artery. Reviewed, dictated and finalized at location A.
== END 2023-12-09 12:12 | disposition home or self-care (01) ==
LOC: CHSIMG 12:13
PROVIDERS: PCP Internal Medicine; Visit Provider Internal Medicine
DX: I65.23 Occlusion and stenosis of bilateral carotid arteries (principal)
CPT/HCPCS: 93880

== ENCOUNTER 2024-03-22 16:49 | Outpatient (CLI) | payer MEDICARE, OTHER, SELFPAY ==
[2024-03-22 17:08] LABS: Hematocrit 39.4 % (35.0-42.0); Hemoglobin 13.3 g/dL (11.7-13.8); Mean Corpuscular HGB Conc 33.8 g/dL (32-36); Mean Corpuscular Hemoglobin 30.9 pg (27.0-31.0); Mean Corpuscular Volume 91.6 fL (78.0-102.0); Mean Platelet Volume 9.5 fl (9.2-11.8); Platelet Count Result 192 K/mm3 (150-420); Red Cell Distribution Width 11.8 % (11.6-14.4); White Blood Count 5.1 K/mm3 (4.8-10.8)
[2024-03-22 17:55] LABS: Anion Gap 8 mmol/L (4-12); Blood Urea Nitrogen 13 mg/dL (7-18); Calcium 8.9 mg/dL (8.5-10.1); Carbon Dioxide 30 mmol/L (21-32); Chloride 103 mmol/L (98-108); Estimated Glomerular Filt Rate > 60; Free T3 2.17 pg/mL (2.18-3.98); Free T4 Free Thyroxine 0.88 ng/dL (0.76-1.46); Glucose 109 mg/dL (70-99); Magnesium 2.1 mg/dL (1.8-2.4); Osmolality Calculated 293 mOsm/kg (285-295); Sodium 141 mmol/L (136-145); Thyroid Stimulating Hormone 2.95 uIU/mL (0.36-3.74)
== END 2024-03-22 16:50 | disposition home or self-care (01) ==
PROVIDERS: PCP Internal Medicine; Visit Provider Internal Medicine
DX: R00.2 Palpitations (principal)
CPT/HCPCS: 36415; 80048; 83735; 84439; 84443; 84481; 85027

== ENCOUNTER 2024-03-29 08:59 | Outpatient (CLI) | payer MEDICARE, OTHER, SELFPAY ==
--- NOTE | 2024-04-28 10:00 | WPDHOLTEREM ---
Holter/Event Monitor Holter/Event Monitor Date of procedure: 03/29/24 Holter/Event Procedure: Event Monitor Indications: Palpitations Conclusion: 1. 28 days event monitor between 03/29/24-04/27/24. There are 26 available transmissions for analysis. 2. Underlying rhythm is sinus rhythm. HR range 50-120 bpm; average 72 bpm. 3. There are occasional premature supraventricular complexes with total burden of 1%. No supraventricular tachycardia. 4. There are occasional premature ventricular complexes with total burden of 1%. No ventricular tachycardia. 5. No significant pauses greater than 2 seconds. 6. Patient reports 12 episodes of symptoms of chest pain, lightheadedness, skipped beat, heart racing and symptoms other than listed which demonstrate sinus rhythm, HR range 67-89 bpm with 1 episode with PAC and 1 episode with PVC.
== END 2024-03-29 09:00 | disposition home or self-care (01) ==
PROVIDERS: PCP Internal Medicine; Visit Provider Internal Medicine
DX: R00.2 Palpitations (principal)
CPT/HCPCS: 93270

== ENCOUNTER 2024-06-14 07:44 | Outpatient (CLI) | payer MEDICARE, OTHER, SELFPAY ==
[2024-06-14 08:17] LABS: Basophils Absolute Auto 0.01 K/mm3 (0.00-0.10); Basophils Percent Auto 0.2 % (0.0-1.0); Eosinophils Absolute Auto 0.18 K/mm3 (0.02-0.50); Immature Granulocyte Absolute 0.01 K/mm3 (0.00-0.00); Immature Granulocyte Percent A 0.2 % (0.0-0.0); Lymphocytes Absolute Auto 0.98 K/mm3 (1.10-4.50); Lymphocytes Percent Auto 21.6 % (18.0-42.0); Mean Corpuscular HGB Conc 34.1 g/dL (32-36); Mean Corpuscular Hemoglobin 31.5 pg (27.0-31.0); Mean Corpuscular Volume 92.3 fL (78.0-102.0); Mean Platelet Volume 9.6 fl (9.2-11.8); Neutrophils Absolute Auto 2.86 K/mm3 (1.70-7.20); Platelet Count Result 197 K/mm3 (150-420); Red Blood Count 4.44 M/mm3 (4.20-5.40); Red Cell Distribution Width 11.9 % (11.6-14.4); White Blood Count 4.5 K/mm3 (4.8-10.8)
[2024-06-14 08:22] LABS: Add Urine Microscopic? YES; Appearance Urine Clear (Clear); Bilirubin Urine Negative (Negative); Blood Urine Negative (Negative); Color Urine Light Yellow (Yellow); Glucose Urine UA Negative (Negative); Ketones Urine Negative (Negative); Leukocyte Esterase Ur 2+ (Negative); Nitrate Urine Negative (Negative); Protein Urine Negative (Negative); Specific Grav Ur 1.025 (1.010-1.020); Urobilinogen Urine 0.2 mg/dL (0.2-1.0)
[2024-06-14 08:28] LABS: Bacteria Urine 1+ /hpf; RBC Urine None seen /hpf (0-2); Squamous Epithelial Cell Urine Moderate /hpf (Few)
[2024-06-14 08:29] LABS: Hemoglobin A1C 5.9 % (<5.7)
[2024-06-14 09:40] LABS: Alanine Aminotransferase 24 U/L (14-59); Albumin Level 3.9 g/dL (3.4-5.0); Alkaline Phosphatase 78 U/L (46-116); Anion Gap 9 mmol/L (4-12); Aspartate Amino Transferase 18 U/L (15-37); Bilirubin,Total 0.8 mg/dL (0.00-1.00); Blood Urea Nitrogen 12 mg/dL (7-18); Calcium 8.5 mg/dL (8.5-10.1); Carbon Dioxide 29 mmol/L (21-32); Chloride 101 mmol/L (98-108); Cholesterol 185 mg/dL (0-200); Creatine Kinase 82 U/L (26-192); Estimated Glomerular Filt Rate > 60; Free T4 Free Thyroxine 0.99 ng/dL (0.76-1.46); Glucose 112 mg/dL (70-99); HDL Direct 69 mg/dL (40-60); LDL Cholesterol Calculated 90 mg/dL (<130); Osmolality Calculated 288 mOsm/kg (285-295); Potassium 3.9 mmol/L (3.5-5.1); Sodium 139 mmol/L (136-145); Total Protein 6.7 g/dL (6.4-8.2); Triglycerides 129 mg/dL (0-150)
[2024-06-14 09:41] LABS: Vitamin B12 > 2000 pg/mL (193-986)
[2024-06-15 19:13] LABS: Red Blood Cell Folate 492 ng/mL RBC (>280)
[2024-06-15 20:34] LABS: Vitamin D 25 Hydroxy 57 ng/mL (30-100)
== END 2024-06-14 07:45 | disposition home or self-care (01) ==
PROVIDERS: PCP Internal Medicine; Visit Provider Internal Medicine
DX: D72.819 Decreased white blood cell count, unspecified (principal); E78.5 Hyperlipidemia, unspecified; I10 Essential (primary) hypertension; M35.05 Sjogren syndrome with inflammatory arthritis; I48.92 Unspecified atrial flutter; E11.59 Type 2 diabetes mellitus with other circulatory complications; E55.9 Vitamin D deficiency, unspecified
CPT/HCPCS: 36415; 80053; 80061; 81001; 82306; 82550; 82607; 82747; 83036; 84439; 84443; 85025

== ENCOUNTER 2024-06-30 13:07 | Outpatient (CLI) | payer MEDICARE, OTHER, SELFPAY ==
--- NOTE | ~2024-06-30 | DEXA_ITS ---
Bone Density Report Name: LUX CABRAL Age: 74 Sex: Female Ethnicity: White Date of : 1950 Indication: osteopenia; height loss; asthma or emphysema; Referring Provider: Maday Lopez Study: Bone densitometry was performed. Exam Date: June 30, 2024 Accession number: [id number] Bone Density: Region BMD T-score Z-score Classification AP Spine(L1-L4) 1.034 -0.1 2.2 Normal Femoral Neck (Left) 0.698 -1.4 0.6 Osteopenia Total Hip (Left) 0.888 -0.4 1.2 Normal Femoral Neck (Right) 0.578 -2.4 -0.5 Osteopenia Total Hip (Right) 0.860 -0.7 1.0 Normal Femoral Neck Mean 0.638 -1.9 0.1 Osteopenia Total Hip Mean 0.874 -0.6 1.1 Normal World Health Organization criteria for BMD impression classify patients as: Normal (T-score at or above -1.0), Osteopenia (T-score between -1.0 and -2.5), or Osteoporosis (T-score at or below -2.5). 10-year Fracture Risk(1): Major Osteoporotic Fracture 14% Hip Fracture 3.6% Reported Risk Factors: [place] (), Neck BMD=0.578, BMI=31.9 (1) FRAX(R) Version 3.08. Fracture probability calculated for an untreated patient. Fracture probability may be lower if the patient has received treatment. Previous Exams: Region Exam Age BMD T-score BMD Change BMD Change Date g/cm2 vs Baseline vs Previous AP Spine (L1-L4) 06/30/2024 74 1.034 -0.1 -0.111 (-9.7%) 0.027 (2.7%)* 05/22/2022 71 1.007 -0.4 -0.139 (-12.1% -0.084 (-7.7%) 04/27/2020 69 1.091 0.4 -0.055 (-4.8%) 0.013 (1.2%) 07/22/2013 63 1.078 0.3 -0.068 (-5.9%) -0.068 (-5.9%) 11/05/2009 59 1.146 0.9 Total Hip(Left) 06/30/2024 74 0.888 -0.4 0.064 (7.8%)* 0.064 (7.8%)* 05/22/2022 71 0.824 -1.0 Total Hip(Right) 06/30/2024 74 0.860 -0.7 -0.021 (-2.4%) 0.055 (6.8%)* 05/22/2022 71 0.805 -1.1 -0.075 (-8.6%) -0.007 (-0.9%) 04/27/2020 69 0.813 -1.1 -0.068 (-7.7%) -0.060 (-6.8%) 07/22/2013 63 0.873 -0.6 -0.008 (-0.9%) -0.008 (-0.9%) 11/05/2009 59 0.881 -0.5 *Denotes significance at 95% confidence level, LSC for AP Spine = 0.022 g/cm2, LSC for Total Hip = 0.027 g/cm2 # Denotes dissimilar scan types or analysis methods Clinical Information Provided by Patient: Has used the following medications: Vitamin D, Calcium Has the following medical conditions: Asthma or Emphysema Patient maximum height was 65.2 Menopause Age: 51 No regular weight bearing exercise Does not regularly consume dairy products Onset of menses at a
== END 2024-06-30 13:08 | disposition home or self-care (01) ==
LOC: CHSIMG 13:10
PROVIDERS: PCP Internal Medicine; Visit Provider Internal Medicine
DX: Z78.0 Asymptomatic menopausal state (principal); M85.89 Other specified disorders of bone density and structure, multiple sites
CPT/HCPCS: 77080

== ENCOUNTER 2024-12-12 07:45 | Outpatient (CLI) | payer MEDICARE, SELFPAY ==
--- OUTSIDE RECORDS SUMMARY | 2024-12-12 07:53 | XMS_ITS | Clinical Summary ---
Author Organization [facility] Address [address] [place] [address] Care Team Providers Care Welder Fitter Name Role Phone Shabbir Montoya MD Primary Care Provider [phone] Source Comments [facility],non-owned Affiliates and Associated Physician Practices is amultiple site organization consisting of ambulatory clinics and hospital sitesin [place], [place], [place] and [place]. This disclosure is being madepursuant to the Care Everywhere program and may not contain all information available regarding this patient. Last updated 18.[facility] Allergies Active Allergy Reactions Criticality Noted Date Comments Clarithromycin Rash Medium 04/25/2014 biaxin Sulfa Drugs Rash Medium 08/26/2022 Medications * Be aware that medications may not be up to date on this document. Alwaysverify current medications with the patient. Medication Sig Dispensed Refills Start Date End Date Status losartan - hydroCHLOROthiazide (Hyzaar) 50-12.5 MG tablet losartan 50 mg-hydrochloroth iazide 12.5 mg tablet 2 Active montelukast (Singulair) 10 MG tablet montelukast 10 mg tablet Active verapamil CR (Isoptin-SR) 120 MG tablet verapamil ER (SR) 120 mg tablet,extended release Active vitamin D3 (Cholecalciferol) 10 MCG (400 UNIT) capsule Vitamin D3 Ac tive multivitamin daily tablet multivitamin Active albuterol-ipratropium (Duo-Neb) 0.5-2.5 (3) MG/3ML nebulizer solution ipratropium 0.5 mg-albuterol 3 mg (2.5 mg base)/3 mL nebulization soln Inhale 3 mL 2-4 times per day by nebulization route. Active Zinc 20 MG CAPS Active Bacillus Coagulans-Inulin (ALIGN PREBIOTIC-PROBIOTIC PO) A ctive Magnesium 400 MG Active Vitamin E 180 MG (400 UNIT) CAPS Active cyanocobalamin (Vitamin B-12) 2500 MCG tablet Take 1 (one) tablet by mouth once daily Active metFORMIN ER 24hr (Glucophage XR) 500 MG tablet Take 1 (one) tablet by mouth once daily 3 Active aspirin EC (Ecotrin) 81 MG tablet Take 1 (one) tablet by mouth once daily 3 Active cetirizine (ZyrTEC) 10 MG tablet Take 1 (one) tablet by mouth once daily Active albuterol HFA (Proventil; Ventolin; Proair) 108 (90 Base) MCG/ACT inhaler Inhale by mouth as needed Active estradiol (Estrace) 0.1 MG/GM vaginal cream APPLY A FINGERTIP AMOUNT TO AFFECTED AREA DAILY FOR 2-3 WEEKS 3 Active budesonide (Pulmicort) 0.5 MG/2ML nebulizer suspension USE 1 VIAL IN NEBULIZER TWICE DAILY 3 Active pravastatin (Pravachol) 40 MG tablet Take 1 (one) tablet by mouth once daily 3 Active coenzyme Q10 100 MG capsule Take 100 (one hundred) mg by mouth once daily 3 Active mometasone (Elocon) 0.1 % solution (lotion) APPLY TOPICALLY ONCE A DAY TO THE BACK OF SCALP 5 Active hvkpzuge-dfyrbkjob-lprh meth (Maxitrol) ophthalmic suspension prn 5 Active hydroxychloroquine (Plaquenil) 200 MG tabletIndications:Sjogr en's syndrome, with unspecified organ involvement (HCC),Polyarthritis Take 1 (one) tablet by mouth 2 times daily 180 tablet 2 5 Active meloxicam (Mobic) 7.5 MG tablet Take 1 (one) tablet by mouth 2 times daily as needed for Pain 90 tablet 1 5 Active meloxicam (Mobic) 7.5 MG tablet Take 1 (one) tablet by mouth 2 times daily as needed for Pain 30 tablet 1 4 025 Discontin ued(Reord er) hydroxychloroquine (Plaquenil) 200 MG tabletIndications:Sjogr en's syndrome, with unspecified organ involvement (HCC),Polyarthritis Take 1 (one) tablet by mouth 2 times daily 180 tablet 2 4 025 Discontin ued(Reord er) Encounters Date Type Department Care Team Description 12/09/2024 10:40 AM CDT Office Visit [facility] - Rheumatology [address] [place] [id number] Berta Marroquin MD Sjogren's syndrome, with unspecified organ involvement (Primary Dx); Polyarthritis from Last 3 Months Social History Tobacco Use Types Packs/Day Years Used Date Smoking Tobacco: Never Smokeless Tobacco: Never Tobacco Cessation:Counseling Given: Not Answered PHQ-2 Answer Date Recorded Patient Health Questionnaire-2 Score 0 12/09/2024 Sex and Gender Information Value Date Recorded Sex Assigned at Not on file Gender Identity Not on file Sexual Orientation Not on file Last Filed Vital Signs Vital Sign Reading Time Taken Comments Blood Pressure 156/84 12/09/2024 10:42 AM CDT Pulse 71 12/09/2024 10:42 AM CDT Temperature - - Respiratory Rate 16 12/09/2024 10:42 AM CDT Oxygen Saturation 99% 12/09/2024 10:42 AM CDT Inhaled Oxygen Concentration - - Weight 83.3 kg (183 lb 9.6 oz) 12/09/2024 10:42 AM CDT Height 162.6 cm (5' 4 ) 03/15/2024 9:58 AM CDT Body Mass Index 31.51 03/15/2024 9:58 AM CDT Plan of Treatment Upcoming Encounters Date Type Department Care Team (Late st Contact Info) Description 08/11/2025 10:20 AM TRANSITIONS MANAGER Office Visit [facility] - Rheumatology [address] [place] [address] [phone] Berta Marroquin MD [address] [place] [phone] Health Maintenance Due Date Last Done Comments BONE DENSITY TESTING 1950 COLON MONITORING 1950 COLONOSCOPY - COLON CA SCREENING 1950 CT COLONOGRAPHY - COLON CA SCREENING 1950 FIT - COLON CA SCREENING 1950 FLEX SIG - COLON CA SCREENING 1950 MEDICARE AWV 12 MONTHS 1950 HEPATITIS C SCREENING 05/29/1969 DTAP/TDAP/TD VACCINES (1 - Tdap) 1970 PNEUMOCOCCAL VACCINE 50+ (1 of 1 - PCV) 2001 ZOSTER VACCINE (1 of 2) 2001 COVID-19 VACCINE (1 - 2023- season) 2024 INFLUENZA VACCINE (#1) 2024 MAMMOGRAM 12/28/2025 12/29/2023, 05/2024, 12/23/2022, Additional history exists COLOGUARD (AGES 45-75) - COLON CA SCREENING 05/14/2026 05/14/2023 Colorectal Cancer Screening 05/14/2026 Respiratory Syncytial Virus (RSV) Vaccine Pt: or over 60 yrs (1 - 1-dose 75+ series) 2026 SCREENING FOR DIABETES 03/15/2027 , 06/26/2023, 05/09/2022 DEPRESSION SCREENING Completed 12/09/2024, 06/26/2023, 08/26/2022 HEPATITIS B VACCINE Aged Out No longe r eligible based on patient's age to complete this topic HIB VACCINE Aged Out No longer eligi ble based on patient's age to complete this topic HPV VACCINE Aged Out No longer eligi ble based on patient's age to complete this topic MENINGOCOCCAL (Group B) VACCINE SHARED DECISION-MAKING Aged Out No longer eligible based on patient's age to complete this topic MENINGOCOCCAL GROUPS A/C/Y/W VACCINE Aged Out No longer eligible based on patient's age to complete this topic Procedures Procedure Name Priority Date/Time Associated Diagnosis Comments COMPREHENSIVE METABOLIC PANEL Routine 03/15/2024 10:50 AM CDT Sjogren's syndrome, with unspecified organ involvement from Last 3 Months or Most Recently Relevant to Health Maintenance Results * (ABNORMAL) COMPREHENSIVE METABOLIC PANEL (03/15/2024 10:50 AM CDT) Glucose 105 70 - 105 mg/dL [facility] INSURANCE BILL BUN 11 7 - 26 mg/dL [facility] INSURANCE BILL Creatinine 0.80 0.57 - 1.11 mg/dL [facility] INSURANCE BILL eGFR by CKD-EPI 78(L) >=90 mL/min/1.7 3 m2 [facility] INSURANCE BILL Sodium 141 136 - 145 mmol/L [facility] INSURANCE BILL Potassium 3.8 3.5 - 5.1 mmol/L [facility] INSURANCE BILL Chloride 105 98 - 107 mmol/L [facility] INSURANCE BILL CO2 26 22 - 29 mmol/L [facility] INSURANCE BILL Calcium 9.3 8.4 - 10.4 mg/dL [facility] INSURANCE BILL Protein Total 6.7 6.4 - 8.3 gm/dL [facility] INSURANCE BILL Albumin 4.2 3.4 - 5.0 gm/dL [facility] INSURANCE BILL Bilirubin Total 0.7 0.2 - 1.2 mg/dL [facility] INSURANCE BILL Alkaline Phosphatase 61 40 - 150 U/L [facility] INSURANCE BILL AST 21 5 - 34 U/L [facility] INSURANCE BILL ALT 14 0 - 55 U/L [facility] INSURANCE BILL Blood BLOOD SPECIMEN / Unknown 03/15/2024 10:50 AM CDT 03/15/2024 Narrative Resulting Agency Comment Lab Testing performed at: [place] [address] Serena LIAO [id number] Berta Marroquin MD LAB - CHEMISTRY GIGI GALINDO [facility] INSURANCE BILL [address] [place] [address] from Last 3 Months or Most Recently Relevant to Health Maintenance Care Teams Welder Fitter Relationship Specialty Start Date End Date Shabbir Montoya MD [address] [place] [address] PCP - General Internal Medicine 05/28/22
--- OUTSIDE RECORDS SUMMARY | 2024-12-12 07:53 | XMS_ITS | Referral Summary ---
Author Organization [facility] Address [address] [place] [address] Care Team Providers Care Cage Loader Name Role Phone Maday Lopez MD Primary Care Provider [phone] Encounters Date Type Department Care Team Description 11/03/2024 8:41 AM SCALLOP CUTTER MACHINE - 11/03/2024 11:59 PM SCALLOP CUTTER MACHINE Hospital Encounter [facility] [address] [place] [address] Rad, Amh Fluoro Primary osteoarthritis of left hip Discharge Disposition: Discharge to home or self care 10/24/2024 Telephone [facility] [address] [place] [address] Echo Watkins PA from Last 3 Months Allergies Active Allergy Reactions Criticality Noted Date Comments Sulfa (Sulfonamide Antibiotics) Rash Medium 06/22 Medications ASHWAGANDHA EXTRACT ORAL Take 1 tablet by mouth daily Active albuterol 2.5 mg /3 mL (0.083 %) nebulizer solution 3 mL every 6 (six) hours Active aspirin 81 mg enteric coated tablet Take 1 tablet (81 mg total) by mouth daily 3 Active budesonide (PULMICORT) 0.5 mg/2 mL nebulizer solution USE 1 VIAL IN NEBULIZER TWICE DAILY 3 Active cetirizine (ZyrTEC) 10 mg tablet Take 1 tablet (10 mg total) by mouth daily Active cholecalciferol 400 unit capsule Vitamin D3 Active estradioL (ESTRACE) 0.01 % (0.1 mg/gram) vaginal cream APPLY A FINGERTIP AMOUNT TO AFFECTED AREA DAILY FOR 2-3 WEEKS 3 Active hydroxychloroqu ine (PLAQUENIL) 200 mg tablet TAKE 1 (ONE) TABLET BY MOUTH 2 TIMES DAILY Active ipratropium-alb uteroL (DUO-NEB) 0.5-2.5 mg/3 mL nebulizer solution ipratropium 0.5 mg-albuterol 3 mg (2.5 mg base)/3 mL nebulization soln Inhale 3 mL 2-4 times per day by nebulization route. Active losartan (COZAAR) 50 mg tablet Take 1 tablet (50 mg total) by mouth daily 4 Active losartan-hydroC HLOROthiazide (HYZAAR) 50-12.5 mg per tablet Take 1 tablet by mouth daily Active magnesium aspart,citrate, oxide (Triple Magnesium Complex) 400 mg magnesium capsule Take by mouth Active meloxicam (MOBIC) 7.5 mg tablet Take 1 tablet (7.5 mg total) by mouth 2 (two) times a day as needed 4 Active metFORMIN XR (GLUCOPHAGE XR) 500 mg 24 hr tablet Take by mouth daily with dinner Active montelukast (SINGULAIR) 10 mg tablet montelukast 10 mg tablet Active pravastatin (PRAVACHOL) 40 mg tablet Take 1 tablet (40 mg total) by mouth nightly Active coenzyme [id number] 100-5 mg-unit capsule Take 100 mg by mouth daily 3 Active verapamil SR (CALAN SR) 180 mg CR tablet Take 1 tablet (180 mg total) by mouth daily 2 Active zinc glycinate 20 mg capsule Take by mouth Ac tive Active Problems Problem Noted Date Diagnosed Date Primary osteoarthritis of left hip 05/10/2024 Osteoarthritis of spine with radiculopathy, lumb ar region 05/10/2024 Social History Tobacco Use Types Packs/Day Years Used Date Smoking Tobacco: Never Assessed Comments No Sex and Gender Information Value Date Recorded Sex Assigned at Not on file Legal Sex Female 12:29 PM SCALLOP CUTTER MACHINE Gender Identity Not on file Sexual Orientation Not on file Last Filed Vital Signs Vital Sign Reading Time Taken Comments Blood Pressure 162/96 05/10/2024 2:24 PM CDT Pulse 76 05/10/2024 2:24 PM CDT Temperature - - Respiratory Rate - - Oxygen Saturation - - Inhaled Oxygen Concentration - - Weight 82.6 kg (182 lb) 05/10/2024 1:59 PM CDT Height 157.5 cm (5' 2 ) 05/10/2024 1:59 PM CDT Body Mass Index 33.29 05/10/2024 1:59 PM CDT Plan of Treatment Not on file Procedures Procedure Name Priority Date/Time Associated Diagnosis Comments FL FLUORO GUIDED INJECTION HIP LEFT Schedule Routine, Read Routine (OP Routine) 11/03/2024 9:42 AM SCALLOP CUTTER MACHINE Primary osteoarthritis of left hip SCREENING MAMMOGRAM BILATERAL W MELANIE Schedule Routine, Read Routine (OP Routine) 12/29/2023 9:06 AM CDT Screening mammogram, encounter for from Last 3 Months or Most Recently Relevant to Health Maintenance Results * FL Fluoro Guided Injection Hip Left (11/03/2024 9:42 AM SCALLOP CUTTER MACHINE) Anatomical Region Laterality Modality Hip Left Radio Fluoroscop y 11/03/2024 9:46 AM SCALLOP CUTTER MACHINE Narrative 11/03/2024 9:49 AM SCALLOP CUTTER MACHINE EXAM DESCRIPTION: FL FLUORO GUIDED INJECTION HIP LEFT REASON FOR STUDY: pain FT 17.3 sec Dose 2.3695 mGy Hip pain. COMPARISON: It is always my intention RADIATION DOSE: Dose: 0.1042 mGym2 Dose Area Product (DAP) TECHNIQUE/FINDINGS: The risks, benefits, and alternatives of the procedure were explained to the patient and written informed consent was obtained. The skin was prepped and draped in the usual sterile fashion. Utilizing fluoroscopic guidance, a 22 gauge spinal needle was directed into the left hip joint space and a small amount of Omnipaque contrast was injected to confirm intra-articular placement. 0.2% ropivacaine and 40 mg of Kenalog were injected without complication. Patient reported minimal left hip pain following the injection. IMPRESSION: Technically successful fluoroscopically guided left hip steroid injection. THIS IS AN ELECTRONICALLY VERIFIED FINAL REPORT 11/03/2024 9:49 AM - Electronically signed by Mayco Shaw M.D. KR: RICHELLE Report ID: [id number] Reading Location: [id number] Procedure Note Mayco Shaw MD - 11/03/2024 EXAM DESCRIPTION: FL FLUORO GUIDED INJECTION HIP LEFT REASON FOR STUDY: pain FT 17.3 sec Dose 2.3695 mGy Hip pain. COMPARISON: It is always my intention RADIATION DOSE: Dose: 0.1042 mGym2 Dose Area Product (DAP) TECHNIQUE/FINDINGS: The risks, benefits, and alternatives of the procedure were explained tothe patient and written informed consent was obtained. The skin was prepped and draped in the usual sterile fashion. Utilizing fluoroscopic guidance, a 22 gauge spinal needle was directed into the lefthip joint space and a small amount of Omnipaque contrast was injected toconfirm intra-articular placement. 0.2% ropivacaine and 40 mg of Kenalog were injected without complication. Patient reported minimal left hip pain following the injection. IMPRESSION: Technically successful fluoroscopically guided left hip steroid injection. THIS IS AN ELECTRONICALLY VERIFIED FINAL REPORT 11/03/2024 9:49 AM - Electronically signed by Mayco Shaw M.D. KR: KR Report ID: [id number] Reading Location: [id number] [facility] IMG FLUOROSCOPY LARRY LOPEZ Final Result * Screening Mammogram Bilateral W Melanie (12/29/2023 9:06 AM CDT) Anatomical Region Laterality Modality Breast Bilateral Mammography 12/29/2023 10:4 6 AM CDT Impressions 12/29/2023 10:46 AM CDT There is no mammographic evidence of malignancy. A 1 year screening mammogram is recommended. BI-RADS: 1 - Negative. The patient has been or will be contacted. The patient will be entered into a reminder system with a target due date of 1 year for her next mammogram. Electronically signed by: Gwendolyn Collins M.D. Narrative 12/29/2023 10:46 AM CDT EXAMINATION: SCREENING MAMMOGRAM BILATERAL W MELANIE ORDERING HEALTHCARE PROVIDER: SELF SCREENING MAMMOGRAM HISTORY: Routine screening mammography. COMPARISON: 12/23/2022, 11/28/2021, 11/15/2021, 04/18/2021 TECHNIQUE: CC and MLO views of the bilateral breasts were obtained with digital technique using breast tomosynthesis with C view. Computer aided detection was utilized. FINDINGS: DENSITY: There are scattered fibroglandular elements in the bilateral breasts. BREASTS: There are no suspicious masses, suspicious calcifications, or other suspicious findings in either breast. There has been no suspicious interval change. us Self Screening Mammogram IMG MAMMO PROCEDURES Fi nal Result from Last 3 Months or Most Recently Relevant to Health Maintenance Insurance MEDICARE [facility] [place] [address] [facility] [place] [address] Care Teams Cage Loader Relationship Specialty Start Date End Date Maday Lopez MD [address] [place] [address] PCP - General Internal Medicine 11/04/23
--- OUTSIDE RECORDS SUMMARY | 2024-12-12 07:53 | XMS_ITS | Encounter Summary ---
Author Organization [facility] Address [facility] [place] [address] Care Team Providers Care Hotel Office Manager Name Role Phone Shabbir Montoya MD Primary Care Provider Anjum Orozco MD Unavailable Unavailabl e Genesis Coyne APRN, SUPPORT TEAM ASSOC-C Unavailable Maday Lopez MD Primary Care Provider [phone] Jasmin Coronado MD Unavailable [phone] Encounter Details Date Type Department Care Team (Late st Contact Info) Description 12/04/2022 Hospital Orders Only [facility] [employer] Oil Press Tender Pre/Post [address] [place] [address] Anjum Orozco MD Social History Tobacco Use Types Packs/Day Years Used Date Smoking Tobacco: Never Smokeless Tobacco: Never Alcohol Use Standard Drinks/Week Comments Yes 0 (1 standard drink = 0.6 oz pur e alcohol) occasionally Comments Unknown Sex and Gender Information Value Date Recorded Sex Assigned at Not on file Legal Sex Female 10:43 PM CDT Gender Identity Not on file Sexual Orientation Not on file COVID-19 Exposure Response Date Recorded In the last 10 days, have yo u been in contact with someone who was confirmed or suspected to have Coronavirus/COVID-19? No / Unsure 11/11/2022 6:58 AM CASING RUNNING MACHINE TENDER documented as of this encounter Plan of Treatment Upcoming Encounters Date Type Department Care Team (Late st Contact Info) Description 05/08/2025 1:00 PM CDT Appointment [facility] Non Invasive [facility] [address] [place] [address] Genesis Coyne APRN, SUPPORT TEAM ASSOC-C [address] [phone] 05/08/2025 2:00 PM CDT Office Visit [facility] [address] [place] [phone] Genesis Coyne APRN, SUPPORT TEAM ASSOC-C [address] [phone] documented as of this encounter Visit Diagnoses Not on filedocumented in this encounter Care Teams Hotel Office Manager Relationship Specialty Start Date End Date Shabbir Montoya MD [address] [place] [address] PCP - General INTERNAL MEDICINE 09/30/22 05/05/24 Maday Lopez MD [address] [place] [address] PCP - General INTERNAL MEDICINE 05/06/24 Anjum Orozco MD [address] [place] [address] Consulting Physician CARDIOVASCULAR DISEASE 07/27/2305/02 Genesis Coyne APRN, SUPPORT TEAM ASSOC-C [address] [phone] NURSE PRACTITIONER 07/27/23 Jasmin Coronado MD [address] [place] [phone] INTERVENTIONAL CARDIOLOGY 05/08/24 documented as of this encounter
--- OUTSIDE RECORDS SUMMARY | 2024-12-12 07:53 | XMS_ITS | Clinical Summary ---
Author Organization [facility] Address [facility] [place] [address] Care Team Providers Care Channel Turner Name Role Phone Genesis Coyne APRN, NP-C Unavailable Maday Lopez MD Primary Care Provider [phone] Jasmin Coronado MD Unavailable [phone] Allergies Active Allergy Reactions Criticality Noted Date Comments Clarithromycin Rash Low 04/25/2014 biaxin Grass Unknown 07/13/2018 Ragweed Unknown 07/13/2018 Sulfa Antibiotics Unknown 04/25/2014 Medications albuterol sulfate HFA 108 (90 Base) MCG/ACT inhaler Inhale into the lungs as needed. Active cetirizine (ZYRTEC) 10 MG tablet Take 1 tablet (10 mg total) by mouth daily. Active hydroxychloroqu ine (PLAQUENIL) 200 MG tablet Take 1 tablet (200 mg total) by mouth 2 (two) times daily. 2 Active metFORMIN ER (GLUCOPHAGE-XR) 500 MG 24 hr tablet Take 1 tablet (500 mg total) by mouth every evening. 3 Active verapamil (CALAN SR) 180 MG ER tablet Take 1 tablet (180 mg total) by mouth nightly at bedtime. 2 Active magnesium oxide (MAG-OX) 400 (240 Mg) MG tablet Take 1 tablet (400 mg total) by mouth daily. Active Probiotic Product (ALIGN OR) Take 1 tablet by mouth daily. Active Cyanocobalamin 2500 MCG SL Tab Take 2,500 mcg by mouth daily. Active albuterol (PROVENTIL) (2.5 MG/3ML) 0.083% nebulizer solution 3 mLs every 6 (six) hours. As needed Active vitamin E 180 MG (400 UNIT) capsule Take 1 capsule (400 Units total) by mouth daily. Active Tabiona-3 Fatty Acids (FISH OIL) 1200 MG Cap Take 2 capsules by mouth daily. Active budesonide (PULMICORT) 0.5 MG/2ML nebulizer solution Take by nebulization as needed. 3 Active benzonatate (TESSALON) 200 MG capsule Take 1 capsule (200 mg total) by mouth 3 (three) times daily as needed. 3 Active aspirin EC (ECOTRIN) 81 MG tablet Take 1 tablet (81 mg total) by mouth daily. 90 tablet 3 3 Active coenzyme Q10 100 MG capsule Take 1 capsule (100 mg total) by mouth daily. 30 capsule 3 Active pravastatin (PRAVACHOL) 40 MG tablet Take 1 tablet (40 mg total) by mouth nightly at bedtime. 90 tablet 3 3 Active ASHWAGANDHA OR Take 1 tablet by mouth daily. Active GINKGO BILOBA OR Take by mouth daily. Active losartan (COZAAR) 50 MG tablet Take 1 tablet (50 mg total) by mouth daily. 90 tablet 3 4 Active Active Problems Problem Noted Date Diagnosed Date S/P coronary artery stent placement 06/08/2023 Labile hypertension Mild aortic valve stenosis Allergic rhinitis with moder ate asthma without status asthmaticus (HHS/HCC) Mixed hyperlipidemia Resolved Problems Problem Noted Date Diagnosed Date Resolved Date Coronary artery disease invo lving [place] heart without angina pectoris 12/11/2022 12/11/2022 Family History Medical History Relation Comments Hypertension Brother Osteoarthritis Brother Hypertension Father Lung Cancer Father black lung Father Diabetes Maternal Grandfather Diabetes Maternal Grandmother Ovarian Cancer Mother Uterine Cancer Mother Diabetes Paternal Grandfather Diabetes Paternal Grandmother Relation Status Comments Brother Father (Age 73) Maternal Grandfather Maternal Grandmother Mother (Age 52) Paternal Grandfather Paternal Grandmother Social History Tobacco Use Types Packs/Day Years Used Date Smoking Tobacco: Never Smokeless Tobacco: Never Tobacco Cessation:Counseling Given: Not Answered Alcohol Use Standard Drinks/Week Comments Yes 0 (1 standard drink = 0.6 oz pur e alcohol) occasionally Comments Unknown Sex and Gender Information Value Date Recorded Sex Assigned at Not on file Legal Sex Female 10:43 PM CDT Gender Identity Not on file Sexual Orientation Not on file Last Filed Vital Signs Vital Sign Reading Time Taken Comments Blood Pressure 116/84 05/06/2024 12:42 PM CDT Pulse 77 05/06/2024 12:42 PM CDT Temperature 35.7 C (96.3 F) 12/11/2022 9:00 AM CDT Respiratory Rate 16 05/06/2024 12:42 PM CDT Oxygen Saturation 99% 06/08/2023 8:00 AM CDT Inhaled Oxygen Concentration - - Weight 83.5 kg (184 lb) 05/06/2024 12:42 PM CDT Height 158.8 cm (5' 2.5 ) 05/06/2024 12:42 PM CD T Body Mass Index 33.12 05/06/2024 12:42 PM CDT Plan of Treatment Upcoming Encounters Date Type Department Care Team (Late st Contact Info) Description 05/08/2025 1:00 PM CDT Appointment [facility] Non Invasive Cardiology - [facility] [address] [place] [address] Genesis Coyne APRN, STEEL ERECTOR-C [address] [phone] 05/08/2025 2:00 PM CDT Office Visit [facility] [address] [place] [phone] Genesis Coyne APRN, STEEL ERECTOR-C [address] [address] Health Maintenance Due Date Last Done Comments ASCVD Statin 1950 Colorectal Cancer Screening Colonoscopy (10 Years) 1951 Hepatitis C 1969 Mammogram Screening 1991 RSV Immunization or 60+ Years (1 - Risk 60-74 years 1-dose series) 2011 Annual Medicare Wellness Visit 2016 Dexa Scan (General) 2016 Pneumococcal Vaccine: 65+ Years (3 of 3 - PPSV23 or PCV20) 12/05/2021 12/05/2020, 09/10/2015, 10/08/2009, Additional history exists DTaP, Tdap and Td Vaccines (2 - Td or Tdap) 05/12/2022 05/12/2012 ASCVD LDL 02/11/2024 02/10/2023, 06/13/2022 COVID-19 Vaccine (3 - season) 2024 05/17/2021, 04/18/2021 Influenza Adult (#1) 2024 08/02/2019, 08/06/2017, 07/11/2015, Additional history exists Zoster Vaccines Completed 09/27/2022, 05/23, 09/19/2015 Meningococcal B Vaccine Aged Out No l onger eligible based on patient's age to complete this topic Meningococcal Vaccine Aged Out No alexandre cindy eligible based on patient's age to complete this topic RSV Immunizations Under 20 Months Aged Out No longer eligible based on patient's age to complete this topic Medical Devices Implanted Type Area Canvas Products Sales Representative Device Identifier Shelf Expiration Date Model / Serial / Lot Cv Xience 2.5mm X 28mm Mt Prox Diag1- 3 Implanted:11/20 by Jasmin Coronado MD (Quantity not on file) Stent Coronary [employer] 12/30/2023 [id number] Procedures Procedure Name Priority Date/Time Associated Diagnosis Comments LIPID PANEL Routine 02/10/2023 Hyperlipidemia, unspecified hyperlipidemia 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 [place] [place] [address] [place] [address] Care Teams Channel Turner Relationship Specialty Start Date End Date Maday Lopez MD [address] [place] [phone] PCP - General INTERNAL MEDICINE 05/06/24 Genesis Coyne, ALUMINUM POOL INSTALLER, STEEL ERECTOR-C [address] [facility] [address] [place] [address] NURSE PRACTITIONER 07/27/23 Jasmin Coronado MD [address] [place] [phone] INTERVENTIONAL CARDIOLOGY 05/08/24
--- OUTSIDE RECORDS SUMMARY | 2024-12-12 07:53 | XMS_ITS | Encounter Summary ---
Author Organization [facility] Address [facility] [place] [address] Care Team Providers Care Advance Agent Name Role Phone Shabbir Montoya MD Primary Care Provider [phone] Anjum Orozco MD Unavailable Unavailabl e Genesis Coyne APRN, TELEPHONE MAINTAINER-C Unavailable [phone] Maday Lopez MD Primary Care Provider [phone] Jasmin Coronado MD Unavailable [phone] Encounter Details Date Type Department Care Team (Late st Contact Info) Description 01/19/2023 [facility] [address] [place] [address] Anjum Orozco MD Social History Tobacco Use [...] on file Sexual Orientation Not on file documented as of this encounter Plan of Treatment Upcoming Encounters Date Type Department Care Team (Late Contact Info) Description 05/08/2025 1:00 PM CDT Appointment [facility] Non Invasive Cardiology - [facility] [address] [place] [address] Genesis Coyne, RFID SPECIALIST, TELEPHONE MAINTAINER-C [address] [facility] [address] [place] [phone] 05/08/2025 2:00 PM CDT Office Visit [facility] [address] [place] [address] Genesis Coyne APRN, TELEPHONE MAINTAINER-C [address] [phone] documented as of this encounter Visit Diagnoses Not on filedocumented in this encounter Care Teams Advance Agent Relationship Specialty Start Date End Date Shabbir Montoya MD [address] [place] [address] PCP - General INTERNAL MEDICINE 09/30/22 05/05/24 Maday Lopez MD [address] [place] [address] PCP - General INTERNAL MEDICINE 05/06/24 Anjum Orozco MD [address] [place] [address] Consulting Physician CARDIOVASCULAR DISEASE 07/27/2305/02 Genesis Coyne APRN, TELEPHONE MAINTAINER-C [address] [phone] NURSE PRACTITIONER 07/27/23 Jasmin Coronado MD [address] [place] [address] INTERVENTIONAL CARDIOLOGY 05/08/24 documented as of this encounter
--- OUTSIDE RECORDS SUMMARY | 2024-12-12 07:53 | XMS_ITS | Clinical Summary ---
Author Organization [facility] Address [address] [place] [address] Care Team Providers Care Ophthalmic Technician Name Role Phone Maday Lopez MD Primary Care Provider Allergies Active Allergy Reactions Criticality Noted Date [...] mg total) by mouth nightly Active coenzyme S84-asudxtm E 100-5 mg-unit capsule Take 100 mg by mouth daily 3 Active verapamil SR (CALAN SR) 180 mg CR tablet Take 1 tablet (180 mg total) by mouth daily 2 Active zinc glycinate 20 mg capsule Take by mouth Ac tive Active Problems Problem Noted Date Diagnosed Date Primary osteoarthritis of left hip 05/10/2024 Osteoarthritis of spine with radiculopathy, lumb ar region 05/10/2024 Encounters Date Type Department Care Team Description 11/03/2024 8:41 AM PRESS FEEDER - 11/03/2024 11:59 PM PRESS FEEDER Hospital Encounter [facility] [address] [place] [address] Rad, Amh Fluoro Primary osteoarthritis of left hip Discharge Disposition: Discharge to home or self care 10/24/2024 Telephone [facility]oped[facility] Sports Medicine [address] [facility] [address] [place] [address] Echo Watkins PA from Last 3 Months Surgical History Surgery Date Site/Laterality Comments OOPHORECTOMY part of both ovaries are removed BREAST BIOPSY 11/28/2021 Left benign stereo bx FL FLUORO GUIDED INJECTION H IP LEFT 05/26/2024 Left FL FLUORO GUIDED INJECTION H IP LEFT 11/03/2024 Left Family History Medical History Relation Name Comments Uterine cancer Mother Breast cancer Neg Hx Ovarian cancer Neg Hx Thyroid cancer Neg Hx Relation Name Status Comments Mother Social History Tobacco Use Types Packs/Day Years Used Date Smoking Tobacco: Never Assessed Comments No Sex and Gender Information Value Date Recorded Sex Assigned at Not on file Legal Sex Female 12:29 PM PRESS FEEDER Gender Identity Not on file Sexual Orientation Not on file Obstetrics History Para Term AB IAB SAB Ectopic Multiple Livin g Live Births 4 3 3 Date Outcome GA Total Labor Labor/2nd/3rd Weight Sex Type Anes PTL Ashlie A1 A5 Name Clin Term Term Term Last Filed Vital Signs Vital Sign Reading [...] 05/10/2024 1:59 PM CDT Plan of Treatment Health Maintenance Due Date Last Done Comments Colon Cancer Screening-Colonoscopy 1950 Depression Screening 1951 Fall Risk Assessment 1951 Hepatitis C Screening 1950 Osteoporosis Screening-Bone Density Scan 1951 Hepatitis B Screening 1969 Pneumococcal vaccine 65+ (3 of 3 - PPSV23, PCV20 or PCV21) 11/05/2015 09/10/2015, 10/08/2009 Zoster Vaccine (1 of 2) 11/14/2015 09/19/2015 Well Visit 65+ 2016 DTaP/Tdap/Td Vaccine (2 - Td or Tdap) 05/12/2022 05/12/2012 Influenza Vaccine (#1) 2024 9, 08/06/2017, 07/11/2015, Additional history exists Breast Cancer Screening-Mammogram 12/28/2024 12/29/2023, 12/23/2022, 11/15/2021, Additional history exists Procedures Procedure Name Priority Date/Time Associated Diagnosis Comments FL FLUORO GUIDED INJECTION HIP LEFT Schedule Routine, Read Routine (OP Routine) 11/03/2024 9:42 AM PRESS FEEDER Primary osteoarthritis of left hip SCREENING MAMMOGRAM BILATERAL W MELANIE Schedule Routine, Read Routine (OP Routine) 12/29/2023 9:06 AM CDT Screening mammogram, encounter for from Last 3 Months or Most Recently Relevant to Health Maintenance Results * FL Fluoro Guided Injection Hip Left (11/03/2024 9:42 AM PRESS FEEDER) Anatomical Region Laterality Modality Hip Left Radio Fluoroscop y 11/03/2024 9:46 AM PRESS FEEDER Narrative 11/03/2024 9:49 AM PRESS FEEDER EXAM DESCRIPTION: FL FLUORO GUIDED INJECTION HIP [...] Mayco Shaw M.D. KR: KR Report ID: [id number] Reading Location: [id number] Procedure Note Mayco Shaw MD - 11/03/2024 [...] Mayco Shaw M.D. KR: RICHELLE Report ID: [id number] Reading Location: [place] [address] Echo PAK IMG FLUOROSCOPY PROCE JESSICA Final Result * Screening Mammogram Bilateral W [...] Recently Relevant to Health Maintenance Insurance MEDICARE [facility] [place] [address] Care Teams Ophthalmic Technician Relationship Specialty Start Date End Date Maday Lopez MD [address] [place] [address] PCP - General Internal Medicine 11/04/23
--- OUTSIDE RECORDS SUMMARY | 2024-12-12 07:53 | XMS_ITS | Encounter Summary ---
Author Organization [facility] Address [facility] [place] [address] Care Team Providers Care Piece Work Checker Name Role Phone Genesis Coyne APRN, ASSET ACCOUNTANT-C Unavailable [phone] Maday Lopez MD Primary Care Provider Jasmin Coronado MD Unavailable [phone] Encounter Details Date Type Department Care Team (Late st Contact Info) Description 05/06/2024 MyChart Message [facility] [address] [place] [address] Genesis Coyne APRN, ASSET ACCOUNTANT-C [address] [address] [place] Social History Tobacco Use Types Packs/Day Years [...] Info) Description 05/08/2025 1:00 PM CDT Appointment [facility] Non Invasive Cardiology - [facility] [address] [place], [place] [address] Genesis Coyne APRN, ASSET ACCOUNTANT-C [address] [phone] 05/08/2025 2:00 PM CDT Office Visit [facility] [address] [place] [address] Genesis Coyne APRN, ASSET ACCOUNTANT-C [address] [phone] documented as of this encounter Visit Diagnoses Not on filedocumented in this encounter Care Teams Piece Work Checker Relationship Specialty Start Date End Date Maday Lopez MD [address] [place] [address] PCP - General INTERNAL MEDICINE 05/06/24 Genesis Coyne APRN, ASSET ACCOUNTANT-C [address] [phone] NURSE PRACTITIONER 07/27/23 Jasmin Coronado MD [address] [place] [address] INTERVENTIONAL CARDIOLOGY 05/08/24 documented as of this encounter
--- OUTSIDE RECORDS SUMMARY | 2024-12-12 07:54 | XMS_ITS | Encounter Summary ---
Author Organization [facility] Address [facility] [place] [address] Care Team Providers Care Aquacultural Worker Supervisor Name Role Phone Shabbir oMntoya MD Primary Care Provider [phone] Anjum Orozco MD Unavailable Unavailabl e Genesis Coyne APRN STATION INSTALLATION SUPERVISOR-C Unavailable Maday Lopez MD Primary Care Provider Jasmin Coronado MD Unavailable [phone] Encounter Details Date Type Department Care Team (Late st Contact Info) Description 10/17/2022 [facility] [address] [place] [phone] Anjum Orzoco MD Social History Tobacco Use Types Packs/Day Years Used Date Smoking Tobacco: Never Smokeless Tobacco: Never Tobacco Cessation:Counseling Given: Not Answered Alcohol Use Standard Drinks/Week Comments Not Asked 0 (1 standard drink = 0.6 oz pur e alcohol) very infrequently Comments Unknown Sex and Gender Information Value Date Recorded Sex Assigned at Not on file Legal Sex Female 10:43 PM CDT Gender Identity Not on file Sexual Orientation Not on file COVID-19 Exposure Response Date Recorded In the last 10 days, have yo u been in contact with someone who was confirmed or suspected to have Coronavirus/COVID-19? No / Unsure 10/20/2022 8:15 AM SURGICAL GARMENT ASSEMBLER documented as of this encounter Plan of Treatment Upcoming Encounters Date Type Department Care Team (Late st Contact Info) Description 05/08/2025 1:00 PM CDT Appointment [facility] Non Invasive Cardiology - [facility] [address] [place] [address] Genesis Coyne APRN, STATION INSTALLATION SUPERVISOR-C [address] [address] 05/08/2025 2:00 PM CDT Office Visit [facility] [address] [place] [address] Genesis Coyne APRN, STATION INSTALLATION SUPERVISOR-C [address] [address] documented as of this encounter Procedures Procedure Name Priority Date/Time Associated Diagnosis Comments CMP (ABSTRACTED LAB) Routine 10/01/2022 HEMOGLOBIN, GLYCOSYLATED Routine 10/01/2022 documented in this encounter Results * HEMOGLOBIN, GLYCOSYLATED (10/01/2022) HGB A1C 6.7 <5.7 % 10/01/2022 us Default History Genericprovider LABORATORY Final Result * CMP (ABSTRACTED LAB) (10/01/2022) SODIUM S/P/B 141 136 - 145 POTASSIUM S/P/B 3.8 3.5 - 5.1 CHLORIDE S/P/B 104 98 - 108 CO2 28 21 - 32 BUN 13 7 - 18 CREATININE S/P/B 0.77 0.55 - 1.02 CALCIUM S/P/B 8.4 8.5 - 10.1 GLUCOSE 114 70 - 99 mg/dL TOTAL PROTEIN S/P/B 6.3 6.4 - 8.2 ALBUMIN S/P/B 3.5 3.4 - 5.0 AST 21 15 - 37 ALT 23 14 - 59 ALKALINE PHOSPHATASE S/P/B 66 46 - 116 BILIRUBIN TOTAL S/P/B 0.5 0.00 - 1.00 10/01/2022 us Default History Genericprovider LAB-OUTSIDE/ABST RACTED Final Result documented in this encounter Visit Diagnoses Not on filedocumented in this encounter Care Teams Aquacultural Worker Supervisor Relationship Specialty Start Date End Date Shabbir Montoya MD [address] [place] [phone] PCP - General INTERNAL MEDICINE 09/30/22 05/05/24 Maday Lopez MD [address] [place] [address] PCP - General INTERNAL MEDICINE 05/06/24 Anjum Orozco MD [address] [place] [address] Consulting Physician CARDIOVASCULAR DISEASE 07/27/2305/02 Genesis Coyne, ASSISTANT SOFTBALL COACH, STATION INSTALLATION SUPERVISOR-C [address] [phone] NURSE PRACTITIONER 07/27/23 Jasmin Coronado MD [address] [place] [phone] INTERVENTIONAL CARDIOLOGY 05/08/24 documented as of this encounter
--- OUTSIDE RECORDS SUMMARY | 2024-12-12 07:54 | XMS_ITS | Encounter Summary ---
Author Organization [facility] Address [address] [place] [address] Care Team Providers Care Global Sourcing Manager Name Role Phone Maday Lopez MD Primary Care Provider [phone] Encounter Details Date Type Department Care Team (Late st Contact Info) Description 05/26/2024 Telephone [facility] [address] [place] [address] Di Talley, RT Social History Tobacco Use Types Packs/Day Years Used Date Smoking Tobacco: Never Assessed Comments No Sex and Gender Information Value Date Recorded Sex Assigned at Not on file Legal Sex Female 12:29 PM GRAIN TRADER Gender Identity Not on file Sexual Orientation Not on file documented as of this encounter Plan of Treatment Not on file documented as of this encounter Visit Diagnoses Not on filedocumented in this encounter Care Teams Global Sourcing Manager Relationship Specialty Start Date End Date Maday Lopez MD [address] [place], [place] [phone] PCP - General Internal Medicine 11/04/23 documented as of this encounter
--- OUTSIDE RECORDS SUMMARY | 2024-12-12 07:54 | XMS_ITS | Clinical Summary ---
Author Organization [facility] Address [address] [place] [address] Phone Care Team Providers Care Secretary Receptionist Name Role Phone Unavailable Primary Care Provider Unavailabl e Allergies Active Allergy Reactions Criticality Noted Date Comments Clarithromycin Rash Low 12/17/2021 Sulfa (Sulfonamide Antibiotics) Rash Medium 06/22 Medications Cholecalciferol , Vitamin D3, (Vitamin D3) 10 mcg (400 unit) capsule Vitamin D3 Active losartan-hydroC HLOROthiazide (HYZAAR) 50-12.5 mg tablet 2 Active verapamiL (CALAN SR) 120 mg Sustained Release tablet verapamil ER (SR) 120 mg tablet,extende d release Active cetirizine (ZyrTEC) 1 mg/mL Solution Take 1 mg by mouth daily. Active Active Problems Problem Noted Date Diagnosed Date Abnormality of left breast on screening mammogra m 12/17/2021 Fibroadenoma of left breast 12/17/2021 Family History Medical History Relation Name Comments Cancer Father liver Cancer Mother uterine Relation Name Status Comments Father Mother Social History Tobacco Use Types Packs/Day Years Used Date Smoking Tobacco: Never Alcohol Use Standard Drinks/Week Comments Yes 0 (1 standard drink = 0.6 oz pur e alcohol) Comments No Sex and Gender Information Value Date Recorded Sex Assigned at Not on file Legal Sex Female 1:55 PM FERRYBOAT HELPER Gender Identity Not on file Sexual Orientation Not on file Last Filed Vital Signs Vital Sign Reading Time Taken Comments Blood Pressure 124/62 12/17/2021 9:19 AM CDT Pulse - - Temperature - - Respiratory Rate - - Oxygen Saturation - - Inhaled Oxygen Concentration - - Weight 83 kg (183 lb) 12/17/2021 9:19 AM CDT Height 158.8 cm (5' 2.5 ) 12/17/2021 9:19 AM CDT Body Mass Index 32.94 12/17/2021 9:19 AM CDT Plan of Treatment Health Maintenance Due Date Last Done Comments DTAP/TDAP/TD VACCINES (1 - Tdap) 1970 PNEUMOCOCCAL VACCINE 50+ YEARS (1 of 2 - PCV) 06/03/19 70 BREAST CANCER SCREENING 1991 COLORECTAL SCREENING 1996 Colorectal Cancer Screening 1996 FIT-DNA Q 3 years 1996 FIT/FOBT Q 1 year 1996 Flex Sig/CT Colonography Q 5 years 1996 ZOSTER VACCINE (1 of 2) 2001 RSV VACCINE (60+ or ) (1 - Risk 60-74 years 1-dose series) 2011 OSTEOPOROSIS SCREENING 2016 INFLUENZA VACCINE (#1) 2024 Insurance MEDICARE PART A AND B [facility]
[2024-12-12 08:04] LABS: Basophils Absolute Auto 0.04 K/mm3 (0.00-0.10); Basophils Percent Auto 0.9 % (0.0-1.0); Eosinophils Absolute Auto 0.39 K/mm3 (0.02-0.50); Hematocrit 40.6 % (35.0-42.0); Hemoglobin 13.6 g/dL (11.7-13.8); Lymphocytes Absolute Auto 1.41 K/mm3 (1.10-4.50); Lymphocytes Percent Auto 32.6 % (18.0-42.0); Mean Corpuscular HGB Conc 33.5 g/dL (32-36); Mean Corpuscular Volume 92.5 fL (78.0-102.0); Mean Platelet Volume 9.5 fl (9.2-11.8); Monocytes Absolute Auto 0.46 K/mm3 (0.10-0.90); Monocytes Percent Auto 10.6 % (2.0-11.0); Neutrophils Absolute Auto 2.02 K/mm3 (1.70-7.20); Neutrophils Percent Auto 46.9 % (50.0-70.0); Platelet Count Result 189 K/mm3 (150-420); Red Blood Count 4.39 M/mm3 (4.20-5.40); Red Cell Distribution Width 12.1 % (11.6-14.4); White Blood Count 4.3 K/mm3 (4.8-10.8)
[2024-12-12 08:09] LABS: Add Urine Microscopic? YES; Appearance Urine Clear (Clear); Bilirubin Urine Negative (Negative); Blood Urine Negative (Negative); Color Urine Light Yellow (Yellow); Glucose Urine UA Negative (Negative); Ketones Urine Negative (Negative); Leukocyte Esterase Ur 2+ LEU/UL (Negative); Nitrate Urine Negative (Negative); Protein Urine 1+ (Negative); Specific Grav Ur >= 1.030 (1.010-1.020); Urobilinogen Urine 0.2 mg/dL (0.2-1.0)
[2024-12-12 08:12] LABS: Hemoglobin A1C 5.9 % (<5.7)
[2024-12-12 08:16] LABS: Bacteria Urine Trace /hpf; RBC Urine None seen /hpf (0-2); Squamous Epithelial Cell Urine Rare /hpf (Few)
[2024-12-12 08:38] LABS: Alanine Aminotransferase 17 U/L (14-59); Alkaline Phosphatase 86 U/L (46-116); Anion Gap 11 mmol/L (4-12); Aspartate Amino Transferase 13 U/L (15-37); Bilirubin,Total 0.5 mg/dL (0.00-1.00); Blood Urea Nitrogen 13 mg/dL (7-18); Calcium 8.9 mg/dL (8.5-10.1); Carbon Dioxide 29 mmol/L (21-32); Chloride 104 mmol/L (98-108); Cholesterol 170 mg/dL (0-200); Creatine Kinase 91 U/L (26-192); Estimated Glomerular Filt Rate > 60; Glucose 100 mg/dL (70-99); HDL Direct 69 mg/dL (40-60); LDL Cholesterol Calculated 76 mg/dL (<130); Osmolality Calculated 298 mOsm/kg (285-295); Potassium 3.6 mmol/L (3.5-5.1); Sodium 144 mmol/L (136-145); Total Protein 6.6 g/dL (6.4-8.2); Triglycerides 127 mg/dL (0-150)
[2024-12-14 01:58] LABS: Vitamin D 25 Hydroxy 81 ng/mL (30-100)
== END 2024-12-12 07:46 | disposition home or self-care (01) ==
PROVIDERS: PCP Internal Medicine; Visit Provider Internal Medicine
DX: E78.2 Mixed hyperlipidemia (principal); N39.0 Urinary tract infection, site not specified; M81.0 Age-related osteoporosis without current pathological fracture; E11.65 Type 2 diabetes mellitus with hyperglycemia
CPT/HCPCS: 36415; 80053; 80061; 81001; 82306; 82550; 83036; 85025; 87086

== ENCOUNTER 2025-07-15 07:47 | Outpatient (CLI) | payer MEDICARE, SELFPAY ==
[2025-07-15 08:17] LABS: Add Urine Microscopic? YES; Appearance Urine Clear (Clear); Glucose Urine UA Negative (Negative); Hematocrit 38.0 % (35.0-42.0); Hemoglobin 12.6 g/dL (11.7-13.8); Immature Granulocyte Percent A 0.2 % (0.0-0.0); Leukocyte Esterase Ur Trace LEU/UL (Negative); Lymphocytes Absolute Auto 1.07 K/mm3 (1.10-4.50); Mean Corpuscular HGB Conc 33.2 g/dL (32-36); Mean Corpuscular Hemoglobin 30.8 pg (27.0-31.0); Mean Corpuscular Volume 92.9 fL (78.0-102.0); Nitrate Urine Negative (Negative); Nucleated Red Blood Cells Absolute Auto 0.00 K/mm3 (0.00-0.00); Nucleated Red Blood Cells Perc 0.0 % (0-0.0); Platelet Count Result 203 K/mm3 (150-420); Red Blood Count 4.09 M/mm3 (4.20-5.40); Specific Grav Ur 1.020 (1.010-1.020); White Blood Count 4.0 K/mm3 (4.8-10.8)
[2025-07-15 08:31] LABS: Hemoglobin A1C 5.7 % (<5.7)
[2025-07-15 09:30] LABS: Alanine Aminotransferase 14 U/L (6-35); Albumin Level 4.3 g/dL (3.5-5.1); Alkaline Phosphatase 59 U/L (38-126); Anion Gap 7 mmol/L (4-12); Aspartate Amino Transferase 26 U/L (14-36); Bilirubin,Total 0.7 mg/dL (0.2-1.3); Blood Urea Nitrogen 12 mg/dL (7-17); Calcium 8.9 mg/dL (8.4-10.2); Carbon Dioxide 29 mmol/L (22-30); Chloride 103 mmol/L (98-107); Cholesterol 151 mg/dL (0-200); Creatine Kinase 83 U/L (30-135); Estimated Glomerular Filt Rate > 60; Glucose 106 mg/dL (65-110); HDL Direct 62 mg/dL; Osmolality Calculated 287 mOsm/kg (285-295); Potassium 4.2 mmol/L (3.4-5.0); Sodium 139 mmol/L (137-145); Total Protein 6.8 g/dL (6.3-8.2); Triglycerides 167 mg/dL (<150)
== END 2025-07-15 07:48 | disposition home or self-care (01) ==
LOC: CHSLAB 07:49
PROVIDERS: PCP Internal Medicine; Visit Provider Internal Medicine
DX: I10 Essential (primary) hypertension (principal); E78.5 Hyperlipidemia, unspecified; N39.0 Urinary tract infection, site not specified; E11.9 Type 2 diabetes mellitus without complications; M81.0 Age-related osteoporosis without current pathological fracture
CPT/HCPCS: 36415; 80053; 80061; 81001; 82306; 82550; 83036; 85025

== ENCOUNTER 2025-08-22 13:45 | Outpatient (CLI) | payer MEDICARE, OTHER, SELFPAY ==
--- NOTE | ~2025-08-22 | XR_ITS ---
EXAMINATION: XR chest 2V, 08/22/2025 14:04 YARN REWINDER HISTORY: COUGH/WHEEZING COMPARISON: No comparisons available. Technique: 2 views obtained. Findings: The lungs are clear, no effusion. No pneumothorax. Heart is normal size. Mediastinal and hilar contours are within normal limits. Bony thorax no acute abnormality. Impression: No acute cardiopulmonary abnormality. Reviewed, dictated and finalized at location P. REWINDER Impression: No acute cardiopulmonary abnormality.
[2025-08-22 14:02] LABS: Hematocrit 41.8 % (35.0-42.0); Hemoglobin 14.3 g/dL (11.7-13.8); Mean Corpuscular HGB Conc 34.2 g/dL (32-36); Mean Corpuscular Hemoglobin 31.0 pg (27.0-31.0); Mean Corpuscular Volume 90.7 fL (78.0-102.0); Platelet Count Result 270 K/mm3 (150-420); Red Blood Count 4.61 M/mm3 (4.20-5.40); White Blood Count 7.3 K/mm3 (4.8-10.8)
[2025-08-22 14:16] LABS: Alanine Aminotransferase 24 U/L (6-35); Albumin Level 4.6 g/dL (3.5-5.1); Alkaline Phosphatase 64 U/L (38-126); Anion Gap 12 mmol/L (4-12); Aspartate Amino Transferase 31 U/L (14-36); Bilirubin,Total 0.8 mg/dL (0.2-1.3); Blood Urea Nitrogen 16 mg/dL (7-17); Calcium 8.9 mg/dL (8.4-10.2); Carbon Dioxide 25 mmol/L (22-30); Chloride 101 mmol/L (98-107); Estimated Glomerular Filt Rate 58; Glucose 114 mg/dL (65-110); Osmolality Calculated 288 mOsm/kg (285-295); Potassium 3.5 mmol/L (3.4-5.0); Sodium 138 mmol/L (137-145); Total Protein 7.2 g/dL (6.3-8.2)
[2025-08-22 14:27] LABS: Strep Group A RT-PCR NOT DETECTED (Negative)
[2025-08-22 14:39] LABS: Influenza A QL RT-PCR Negative (Negative); Influenza B QL RT-PCR Negative (Negative); RSV RNA, RT-PCR Negative (Negative); SARS-CoV-2 RNA PCR Positive (Negative)
--- OUTSIDE RECORDS SUMMARY | 2025-08-22 14:50 | XMS_ITS | Encounter Summary ---
Author Organization [facility] Address [facility] [place] [address] Care Team Providers Care Green Chain Marker Name Role Phone Shabbir Montoya MD Primary Care Provider [phone] Anjum Orozco MD Unavailable [phone] Genesis Coyne APRN SIGN BOARD ERECTOR-C Unavailable [phone] Maday Lopez MD Primary Care Provider [phone] Jasmin Coronado MD Unavailable [phone] Bob Kearney MD Unavailable [phone] Kieran Solano MD Unavailable [phone] Encounter Details Date Type Department Care Team (Late st Contact Info) Description 01/19/2023 Abstract [facility] [address] [place] [address] Anjum Orozco MD [address] [place] [address] Social History Tobacco Use Types Packs/Day Years Used Date Smoking Tobacco: Never Smokeless Tobacco: Never Alcohol Use Standard Drinks/Week Comments Yes 0 (1 standard drink = 0.6 oz pur e alcohol) occasionally Comments Unknown Sex and Gender Information Value Date Recorded Sex Assigned at Female 05/26/2025 12:12 PM CDT Legal Sex Female 10:43 PM CDT Gender Identity Not on file Sexual Orientation Not on file documented as of this encounter Plan of Treatment Upcoming Encounters Date Type Department Care Team (Late st Contact Info) Description 05/29/2026 10:00 AM CDT Appointment [facility] Non Invasive Cardiology - [facility] [address] [place] [address] Genesis Coyne APRN, SIGN BOARD ERECTOR-C [address] [phone] 05/29/2026 11:30 AM CDT Office Visit [facility] [address] [place] [phone] Genesis Coyne APRN, SIGN BOARD ERECTOR-C [address] [address] documented as of this encounter Visit Diagnoses Not on filedocumented in this encounter Care Teams Green Chain Marker Relationship Specialty Start Date End Date Shabbir Montoya MD [address] [place] [address] PCP - General INTERNAL MEDICINE 09/30/22 05/05/24 Maday Lopez MD [address] [place] [address] PCP - General INTERNAL MEDICINE 05/06/24 Anjum Orozco MD [address] [place] [phone] Consulting Physician CARDIOVASCULAR DISEASE 07/27/23 Genesis Coyne APRN, SIGN BOARD ERECTOR-C [address] [phone] NURSE PRACTITIONER 07/27/23 Jasmin Coronado MD [address] [place] [address] INTERVENTIONAL CARDIOLOGY 05/08/24 03/28/25 Bob Kearney MD [address] [place] [address] Consulting Physician INTERVENTIONAL CARDIOLOGY 03/29/25 Kieran Solano MD [address] [place] [phone] ORTHOPAEDIC SURGERY 08/07/25 documented as of this encounter
--- OUTSIDE RECORDS SUMMARY | 2025-08-22 14:50 | XMS_ITS | Clinical Summary ---
[facility] [place] [address] [place] [address] Phone Care Team Providers Care Addictions Counselor Assistant Name Role Phone Unavailable Primary Care Provider Unavailabl e Allergies Active Allergy Reactions Criticality Noted Date Comments Clarithromycin Rash Low 12/17/2021 Sulfa (Sulfonamide Antibiotics) Rash Medium 06/22 Medications Cholecalciferol , Vitamin D3, (Vitamin D3) 10 mcg (400 unit) capsule Vitamin D3 Active losartan-hydroC HLOROthiazide (HYZAAR) 50-12.5 mg tablet Active verapamiL (CALAN SR) 120 mg Sustained [...] on file Legal Sex Female 1:55 PM ON SITE MANAGER Gender Identity Not on file Sexual Orientation Not on file Last Filed Vital Signs Vital Sign Reading Time Taken Comments Blood Pressure 124/62 12/17/2021 9:19 AM CDT Pulse - - Temperature - - Respiratory Rate - - Oxygen Saturation - - Inhaled Oxygen Concentration - - Weight 83 kg (183 lb) 12/17/2021 9:19 AM CDT Height 158.8 cm (5' 2.5) 12/17/2021 9:19 AM CDT Body Mass Index [...] Flex Sig/CT Colonography Q 5 years 1996 RSV VACCINE (60+ or ) (1 - Risk 50-74 years 1-dose series) 2001 ZOSTER VACCINE (1 of 2) 2001 OSTEOPOROSIS SCREENING 2016 INFLUENZA VACCINE (#1) 2025 Insurance MEDICARE PART A AND B [employer] [facility]
--- OUTSIDE RECORDS SUMMARY | 2025-08-22 14:50 | XMS_ITS | Encounter Summary ---
Author Organization [facility] Address [address] [place] [address] Care Team Providers Care Marketing Regional Consultant Name Role Phone Genesis Coyne APRN, DIRECTOR OF ONCOLOGY-C Unavailable [phone] Maday Lopez MD Primary Care Provider Jasmin Coronado MD Unavailable [phone] Bob Kearney MD Unavailable [phone] Kieran Solano MD Unavailable [phone] Encounter Details Date Type Department Care Team (Late st Contact Info) Description 05/06/2024 MyChart Message Enc [facility] [address] [place] [address] Genesis Coyne APRN, DIRECTOR OF ONCOLOGY-C [address] [facility] [address] [place] [address] Hi Social History Tobacco Use Types [...] Info) Description 05/29/2026 10:00 AM CDT Appointment [facility] Non Invasive Cardiology - [facility] [address] [place] [address] Genesis Coyne APRN, DIRECTOR OF ONCOLOGY-C [address] [phone] 05/29/2026 11:30 AM CDT Office Visit [facility] [address] [place] [phone] Genesis Coyne APRN, DIRECTOR OF ONCOLOGY-C [address] [address] documented as of this encounter Visit Diagnoses Not on filedocumented in this encounter Care Teams Marketing Regional Consultant Relationship Specialty Start Date End Date Maday Lopez MD [address] [place] [address] PCP - General INTERNAL MEDICINE 05/06/24 Genesis Coyne APRN, DIRECTOR OF ONCOLOGY-C [address] [place] [phone] NURSE PRACTITIONER 07/27/23 Jasmin Coronado MD [address] [place] [phone] INTERVENTIONAL CARDIOLOGY 05/08/24 03/28/25 Bob Kearney MD [address] [place] [phone] Consulting Physician INTERVENTIONAL CARDIOLOGY 03/29/25 Kieran Solano MD [address] [place] [address] [address] [phone] ORTHOPAEDIC SURGERY 08/07/25 documented as of this encounter
--- OUTSIDE RECORDS SUMMARY | 2025-08-22 14:50 | XMS_ITS | Clinical Summary ---
Author Organization [facility] Address [address] [place] [address] Care Team Providers Care Associate Of Science In Nursing Name Role Phone Unavailable Primary Care Provider Unavailabl e Source Comments [facility] Affiliates and Associated Physician Practices is amultiple site organization consisting of ambulatory clinics and hospital sitesin [place], [place], [place] and [place]. This disclosure is being madepursuant to the Care Everywhere program and may not contain all information available regarding this patient. Last updated 18.[facility] Allergies Active Allergy Reactions Criticality Noted Date Comments Clarithromycin Rash Medium 04/25/2014 biaxin Sulfa Drugs Rash Medium 08/26/2022 Tramadol GI Discomfort Low 05/26/2025 Medications * Be aware that medications may not be up to date on this document. Alwaysverify current medications with the patient. losartan - hydroCHLOROthiazide (Hyzaar) 50-12.5 MG tablet losartan 50 mg-hydrochloro thiazide 12.5 mg tablet 2021 Active montelukast (Singulair) 10 MG tablet montelukast 10 mg tablet Active verapamil CR (Isoptin-SR) 120 MG tablet verapamil ER (SR) 120 mg tablet,extende d release Active vitamin D3 (Cholecalciferol) 10 MCG (400 UNIT) capsule Vitamin D3 Active multivitamin daily tablet multivitamin Active albuterol-ipratropium (Duo-Neb) 0.5-2.5 (3) MG/3ML nebulizer solution ipratropium 0.5 mg-albuterol 3 mg (2.5 mg base)/3 mL nebulization soln Inhale 3 mL 2-4 times per day by nebulization route. Active Zinc 20 MG CAPS Acti ve Bacillus Coagulans-Inulin (ALIGN PREBIOTIC-PROBIOTIC PO) Active Magnesium 400 MG Act rich Vitamin E 180 MG (400 UNIT) CAPS Active cyanocobalamin (Vitamin B-12) 2500 MCG tablet Take 1 (one) tablet by mouth once daily Active metFORMIN ER 24hr (Glucophage XR) 500 MG tablet Take 1 (one) tablet by mouth once daily 2022 Active aspirin EC (Ecotrin) 81 MG tablet Take 1 (one) tablet by mouth once daily 2022 Active cetirizine (ZyrTEC) 10 MG tablet Take 1 (one) tablet by mouth once daily Active albuterol HFA (Proventil; Ventolin; Proair) 108 (90 Base) MCG/ACT inhaler Inhale by mouth as needed Active estradiol (Estrace) 0.1 MG/GM vaginal cream APPLY A FINGERTIP AMOUNT TO AFFECTED AREA DAILY FOR 2-3 WEEKS 2022 Active budesonide (Pulmicort) 0.5 MG/2ML nebulizer suspension USE 1 VIAL IN NEBULIZER TWICE DAILY 2022 Active pravastatin (Pravachol) 40 MG tablet Take 1 (one) tablet by mouth once daily 2022 Active coenzyme Q10 100 MG capsule Take 100 (one hundred) mg by mouth once daily 2022 Active mometasone (Elocon) 0.1 % solution (lotion) APPLY TOPICALLY ONCE A DAY TO THE BACK OF SCALP 2024 Active bokjfage-dqocdffbe-jo xameth (Maxitrol) ophthalmic suspension prn 2024 Active hydroxychloroquine (Plaquenil) 200 MG tabletIndications:Sjo gren's syndrome, with unspecified organ involvement (HCC),Polyarthritis Take 1 (one) tablet by mouth 2 times daily 180 tablet 2 2024 Active meloxicam (Mobic) 7.5 MG tablet TAKE 1 TABLET BY MOUTH TWICE A DAY NEEDED FOR PAIN 90 tablet 2024 Active Additional Information Patient taking differently:7.5 mg OralAS DIRECTED, 1 tablet everyday, Reported on 08/11/2025 Blood Glucose Monitoring Suppl (Accu-Chek Guide Me) w/Device KIT USE DIRECTED TO TEST GLUCOSE ONCE DAILY 2024 Active Prolia 60 MG/ML SC injection INJECT 1 ML UNDER THE SKIN EVERY 6 MONTHS. INJECT IN EITHER THE UPPER ARM, UPPER THIGH, OR ABDOMEN Active famotidine (Pepcid) 20 MG tablet 2024 Active SOFTCLIX LANCETS MISC USE NEW LANCET TO CHECK GLUCOSE ONCE DAILY 2024 Active verapamil CR (Isoptin-SR) 180 MG tablet Take 1 (one) tablet by mouth 2024 Active meloxicam (Mobic) 7.5 MG tablet TAKE 1 TABLET BY MOUTH TWICE A DAY NEEDED FOR PAIN 90 tablet 07/27 Discontinued azithromycin (Zithromax) 250 MG tablet Take 2 (two) tablets by mouth once daily for 1 day, THEN 1 (one) tablet once daily for 4 days. 6 tablet 08/16 Encounters Date Type Department Care Team Description 08/12/2025 Results Follow-Up [facility] - Rheumatology [address] [place] [address] Berta Marroquin MD 08/11/2025 11:31 AM ARTISTS' BOOKING REPRESENTATIVE - 08/11/2025 11:59 PM ARTISTS' BOOKING REPRESENTATIVE Hospital Encounter [facility] - Medical Imaging [address] [place] [address] Berta Marroquin MD Discharge Disposition: Home or Self Care 08/11/2025 10:20 AM ARTISTS' BOOKING REPRESENTATIVE Office Visit [facility] - Rheumatology [address] [place] [address] Berta Marroquin MD Arthritis of both hands (Primary Dx); Sjogren's syndrome, with unspecified organ involvement (HCC) 07/26/2025 Refill [facility] Rheumatology [address] [place] [address] [phone] Berta Marroquin MD Refill Request 06/13/2025 Refill [facility] Rheumatology [address] [place] [address] Berta Marroquin MD Refill Request from Last 3 Months Social History Tobacco Use Types Packs/Day Years Used Date Smoking Tobacco: Never Smokeless Tobacco: Never Tobacco Cessation:Counseling Given: Not Answered PHQ-2 Answer Date Recorded Patient Health Questionnaire-2 Score 0 12/09/2024 Comments Unknown Sex and Gender Information Value Date Recorded Sex Assigned at Not on file Legal Sex Female 12:32 PM CDT Gender Identity Not on file Sexual Orientation Not on file Last Filed Vital Signs Vital Sign Reading Time Taken Comments Blood Pressure 128/73 08/11/2025 10:16 AM ARTISTS' BOOKING REPRESENTATIVE Pulse 78 08/11/2025 10:16 AM ARTISTS' BOOKING REPRESENTATIVE Temperature - - Respiratory Rate 16 12/09/2024 10:42 AM CDT Oxygen Saturation 97% 08/11/2025 10:16 AM ARTISTS' BOOKING REPRESENTATIVE Inhaled Oxygen Concentration - - Weight 82.1 kg (181 lb) 08/11/2025 10:16 AM ARTISTS' BOOKING REPRESENTATIVE Height 162.6 cm (5' 4) 03/15/2024 9:58 AM CDT Body Mass Index 31.07 03/15/2024 9:58 AM CDT Plan of Treatment Upcoming Encounters Date Type Department Care Team (Late st Contact Info) Description 02/09/2026 11:40 AM CDT Office Visit [facility] - Rheumatology [address] [place] [address] Berta Marroquin MD [address] [place] [phone] Health Maintenance Due Date Last Done Comments [...] VACCINE (1 of 2) 2001 COVID-19 VACCINE (3 - season) 2025 05/17/2021, 04/18/2021 INFLUENZA VACCINE (#1) 2025 7, 07/11/2015, 06/23/2013, Additional history exists COLOGUARD (AGES 45-75) - COLON CA SCREENING 05/14/2026 05/14/2023 Colorectal Cancer Screening 05/14/2026 Respiratory Syncytial Virus (RSV) Vaccine Pt: or over 60 yrs (1 - 1-dose 75+ series) 2026 MAMMOGRAM 02/09/2027 02/09/2025, 01/20, 12/29/2023, Additional history exists DEPRESSION SCREENING Completed 12/09/2024, 06/26/2023, 08/26/2022 HEPATITIS [...] Procedure Name Priority Date/Time Associated Diagnosis Comments XR HAND BILAT 3VW OR MORE Routine 08/11/2025 11:50 AM ARTISTS' BOOKING REPRESENTATIVE Arthritis of both hands from Last 3 Months Results * XR Hand Bilat 3Vw or More (08/11/2025 11:50 AM ARTISTS' BOOKING REPRESENTATIVE) Anatomical Region Laterality Modality Upper Extremity, Wrist / Hand Ra diographic Imaging 08/11/2025 12:3 1 PM ARTISTS' BOOKING REPRESENTATIVE Narrative 08/11/2025 12:37 PM ARTISTS' BOOKING REPRESENTATIVE PROCEDURE: XR HAND BILAT 3VW OR MORE DATE/TIME OF EXAM: 08/11/2025 11:50 AM CLINICAL INFORMATION: None relevant/not provided if blank. Indication: M19.041: Arthritis of both hands M19.042: Arthritis of both hands Additional History: COMPARISON: None. TECHNIQUE: 3 views each FINDINGS: Right hand: There are degenerative changes of the carpal first metacarpal joint space. There are degenerative changes of the second through fifth PIP and DIP joints. There are degenerative changes of the first DIP joint. No displaced fracture or subluxation is present. Left hand: There are degenerative changes of the carpal first metacarpal joint space. There are degenerative changes of the first DIP joint. There are degenerative changes of the second through fifth PIP and DIP joints. There is no acute fracture. > Interpreting Provider: Eric Rob MD on 08/11/2025 12:37 PM Procedure Note Eric Rob MD - 08/11/2025 PROCEDURE: XR HAND BILAT 3VW OR MORE DATE/TIME OF EXAM: 08/11/2025 11:50 AM CLINICAL INFORMATION: None relevant/not provided if blank. Indication: M19.041: Arthritis of both hands M19.042: Arthritis of both hands Additional History: COMPARISON: None. TECHNIQUE: 3 views each FINDINGS: Right hand: There are degenerative changes of the carpal firstmetacarpal joint space. There are degenerative changes of the second through fifthPIP and DIP joints. There are degenerative changes of the first DIP joint.No displaced fracture or subluxation is present. Left hand: There are degenerative changes of the carpal first metacarpal joint space. There are degenerative changes of the first DIP joint.There are degenerative changes of the second through fifth PIP and DIP joints. There is no acute fracture. > Interpreting Provider: Eric Rob MD on 08/11/2025 12:37 PM Berta Marroquin MD DIAGNOSTIC IMAGING ORDERABLES Fi nal Result from Last 3 Months Insurance MEDICARE [facility]
--- OUTSIDE RECORDS SUMMARY | 2025-08-22 14:50 | XMS_ITS | Encounter Summary ---
Author Organization [facility] Address [facility] [place] [address] Care Team Providers Care Renal Case Manager Name Role Phone Shabbir Montoya MD Primary Care Provider [phone] Anjum Orozco MD Unavailable [phone] Genesis Coyne APRN PATENT LAW SPECIALIST-C Unavailable Maday Lopez MD Primary Care Provider [phone] Jasmin Coronado MD Unavailable [phone] Bob Kearney MD Unavailable [phone] Kieran Solano MD Unavailable [phone] Encounter Details Date Type Department Care Team (Late st Contact Info) Description 10/17/2022 Abstract [facility] [address] [place] [address] Anjum Orozco MD [address] [place] [address] Social History Tobacco Use Types [...] Coronavirus/COVID-19? No / Unsure 10/20/2022 8:15 AM STADIUM ATTENDANT documented as of this encounter Plan of Treatment Upcoming Encounters Date Type Department Care Team (Late st Contact Info) Description 05/29/2026 10:00 AM CDT Appointment [facility] Non Invasive Cardiology - [facility] [address] [place] [address] Genesis Coyne APRN, PATENT LAW SPECIALIST-C [address] [phone] 05/29/2026 11:30 AM CDT [facility] [address] [place] [address] Genesis Coyne APRN, PATENT LAW SPECIALIST-C [address] [address] documented as of this encounter Procedures Procedure Name Priority Date/Time Associated Diagnosis Comments CMP (ABSTRACTED LAB) Routine 10/01/2022 HEMOGLOBIN, GLYCOSYLATED Routine 10/01/2022 documented in this encounter Results * HEMOGLOBIN, GLYCOSYLATED (10/01/2022) Pathologist [facility] HGB A1C 6.7 <5.7 % 10/01/2022 us [...] on filedocumented in this encounter Care Teams Renal Case Manager Relationship Specialty Start Date End Date Shabbir Montoya MD [address] [place] [phone] PCP - General INTERNAL MEDICINE 09/30/22 05/05/24 Maday Lopez MD [address] [place] [phone] PCP - General INTERNAL MEDICINE 05/06/24 Anjum Orozco MD [address] [place] [phone] Consulting Physician CARDIOVASCULAR DISEASE 07/27/23 Genesis Coyne, STEREOTYPE FINISHER, PATENT LAW SPECIALIST-C [address] [place] [address] [address] [place] [phone] NURSE PRACTITIONER 07/27/23 Jasmin Coronado MD [address] [place] [phone] INTERVENTIONAL CARDIOLOGY 05/08/24 03/28/25 Bob Kearney MD [address] [place] [address] Consulting Physician INTERVENTIONAL CARDIOLOGY 03/29/25 Kieran Solano MD [address] [facility] [address], [place] [phone] ORTHOPAEDIC SURGERY 08/07/25 documented as of this encounter
--- OUTSIDE RECORDS SUMMARY | 2025-08-22 14:50 | XMS_ITS | Clinical Summary ---
Author Organization [facility] Address [address] [place] [address] Care Team Providers Care Design Studio Consultant Name Role Phone Maday Lopez MD Primary Care Provider [phone] López Santiago OT Unavailable Unavailable Allergies Active Allergy Reactions Criticality Noted Date Comments Clarithromycin Rash Medium 04/25/2014 biaxin Sulfa (Sulfonamide Antibiotics) Rash Medium 06/22 Medications [...] mg total) by mouth nightly Active coenzyme [id number] 100-5 mg-unit capsule Take 100 mg [...] Encounters Date Type Department Care Team Description 08/16/2025 Telephone [facility] Orthopedics and Sports Medicine 4 [facility] [address] [place] [phone] Kieran Solano MD Surgical Clearance (Surgical clearances, PCP, Cardio,Rhum and pre booking sheet f) 08/09/2025 1:05 PM STEAM PIPE FITTER Lab [address] [address] Pre-op testing 08/09/2025 12:59 PM STEAM PIPE FITTER - 08/09/2025 11:59 PM STEAM PIPE FITTER Hospital Encounter [facility] Cardiology [address] [place] [address] Pre-op testing Discharge Disposition: Discharge to home or self care 08/09/2025 12:55 PM STEAM PIPE FITTER - 08/09/2025 11:59 PM STEAM PIPE FITTER Hospital Encounter [facility] 1 [place] [address] Pre-op testing Discharge Disposition: Discharge to home or self care 08/09/2025 Orders Only [facility] Orthopedics and Sports Medicine [address] [place] [address] [address] [place] [address] Maday Lopez MD 08/09/2025 Telephone [facility] Orthopedics and Sports Medicine 4 [facility] [address] [place] [address] Kieran Solano MD from Last 3 Months Surgical History Surgery [...] on file Legal Sex Female 12:29 PM STEAM PIPE FITTER Gender Identity Not on file Sexual Orientation Not on file Obstetrics History Para Term AB IAB SAB Ectopic Multiple Livin g Live Births 4 3 3 Date Outcome GA Total Labor Labor/2nd/3rd Weight Sex Type Anes PTL Ashlie A1 A5 Name Clin Term Term Term Last Filed Vital Signs Vital Sign Reading Time Taken Comments Blood Pressure 163/87 05/11/2025 8:13 AM CDT Pulse 74 05/11/2025 8:13 AM CDT Temperature - - Respiratory Rate - - Oxygen Saturation - - Inhaled Oxygen Concentration - - Weight 82.2 kg (181 lb 3.5 oz) 05/11/2025 3:01 P M CDT Height 158.8 cm (5' 2.52) 05/11/2025 3:01 PM CD T Body Mass Index 32.6 05/11/2025 3:01 PM CDT Plan of Treatment Upcoming Encounters Date Type Department Care Team (Latest Contact Info) Description 09/25/2025 7:30 AM STEAM PIPE FITTER Hospital Encounter [facility] Operating Room 1 [place] [address] Kieran Solano MD [address] [place] [address] [address] [place] [address] 09/25/2025 7:30 AM STEAM PIPE FITTER - 09/25/2025 9:55 AM STEAM PIPE FITTER Surgery [facility] Operating Room [address] [place] [address] Kieran Solano MD [address] [place] [address] [address] [place] [address] Left Total Hip Arthroplasty- Anterior Approach, Depuy- Actis, Omnitrac, Aquamantys, 1 Liter Beta Rinse, Pt to Stay Scheduled Procedures Name Priority Associated Diagnoses Date/Ti me ARTHROPLASTY TOTAL HIP - ANTERIOR APPROACH Primary osteoarthritis of left hip 09/25/2025 7:30 AM STEAM PIPE FITTER Health Maintenance Due Date Last Done Comments Colon Cancer Screening-Colonoscopy 1950 Depression Screening 1950 Fall Risk Assessment 1950 Hepatitis C Screening 1950 Osteoporosis Screening-Bone Density Scan 1950 Hepatitis B Screening 1969 Pneumococcal vaccine 65+ (3 of 3 - PCV20 or PCV21) 11/05/2015 09/10/2015, 10/08/2009 Zoster Vaccine (1 of 2) 11/14/2015 09/19/2015 Well Visit 65+ 2016 DTaP/Tdap/Td Vaccine (2 - Td or Tdap) 05/12/2022 05/12/2012 Influenza Vaccine (#1) 2025 9, 08/06/2017, 07/11/2015, Additional history exists Breast Cancer Screening-Mammogram 02/09/2026 02/09/2025, 12/29/2023, 12/23/2022, Additional history exists Goals Goal Patient Goal Type Associated Problems Recent Progress Patient-Stated? Author Autogenera andrew Goal Care Plan Autogenerated Problem No Delma Cortes MA Procedures Procedure Name Priority Date/Time Associated Diagnosis Comments XR CHEST PA LATERAL 2 VIEWS Schedule MAX, Read MAX (Appt Today, Awaiting Results) 08/09/2025 1:39 PM STEAM PIPE FITTER Pre-op testing ECG 12-LEAD Routine 08/09/2025 1:30 PM STEAM PIPE FITTER Pre-op testing URINALYSIS, MICROSCOPIC ONLY Routine 08/09/2025 1:17 PM STEAM PIPE FITTER Pre-op testing EGFR Routine 08/09/2025 1:17 PM STEAM PIPE FITTER Pre-op testing DIFFERENTIAL AUTO Routine 08/09/2025 1:1 7 PM STEAM PIPE FITTER Pre-op testing CBC WITH AUTO DIFFERENTIAL Routine 08/09/2025 1:17 PM STEAM PIPE FITTER Pre-op testing COMPREHENSIVE METABOLIC PANEL Routine 08/09/2025 1:17 PM STEAM PIPE FITTER Pre-op testing URINALYSIS AND REFLEX TO MICROSCOPIC AND CULTURE Routine 08/09/2025 1:17 PM STEAM PIPE FITTER Pre-op testing HEMOGLOBIN A1C Routine 07/15/2025 2:10 PM CDT SCREENING MAMMOGRAM BILATERAL W MELANIE Schedule Routine, Read Routine (OP Routine) 02/09/2025 9:18 AM CDT Screening mammogram, encounter for from Last 3 Months or Most Recently Relevant to Health Maintenance Results * XR Chest Pa Lateral 2 Views (08/09/2025 1:39 PM STEAM PIPE FITTER) Anatomical Region Laterality Modality Body, Chest N/A Computed Radiogr aphy 08/09/2025 1:50 PM STEAM PIPE FITTER Impressions 08/09/2025 1:50 PM STEAM PIPE FITTER 8 mm nodule in the mid left lung. Recommend further evaluation with CT chest. Electronically signed by: Herman Alcocer MD Narrative 08/09/2025 1:50 PM STEAM PIPE FITTER EXAMINATION: XR CHEST PA LATERAL 2 VIEWS HISTORY: Pre op testing TECHNIQUE: Frontal and lateral views of the chest. COMPARISON: none FINDINGS: There is a rounded 8 mm nodule in the mid left lung. The lungs are otherwise clear. Normal cardiomediastinal contours. No pleural effusion or pneumothorax. Procedure Note Herman Alcocer MD - 08/09/2025 EXAMINATION: XR CHEST PA LATERAL 2 VIEWS HISTORY: Pre op testing TECHNIQUE: Frontal and lateral views of the chest. COMPARISON: none FINDINGS: There is a rounded 8 mm nodule in the mid left lung. The lungs are otherwise clear. Normal cardiomediastinal contours. No pleural effusion or pneumothorax. IMPRESSION: 8 mm nodule in the mid left lung. Recommend further evaluation with CT chest. Electronically signed by: Herman Alcocer MD Kieran Solano MD IMG XR PROCEDURES Final Result * ECG 12 lead (08/09/2025 1:30 PM STEAM PIPE FITTER) 08/09/2025 1:29 PM STEAM PIPE FITTER Narrative [facility] - 08/09/2025 4:22 PM STEAM PIPE FITTER Vent Rate: 91 bpm RR Interval: 653 msec MD Interval: 135 msec QRS Duration: 96 msec QT Interval: 367 msec QTC Interval: 416 msec P-R-T [place]: 5 - -28 - 30 degrees IMPRESSION: SINUS RHYTHM POSSIBLE ANTERIOR MYOCARDIAL INFARCTION , PROBABLY OLD [30 ms Q WAVE IN V3/V4, OR R < 0.2 mV IN V4] BORDERLINE ECG Electronically Signed By: Bryan Davila MD Kieran Solano MD ECG ORDERABLES Final Re sult [facility] * eGFR (08/09/2025 1:17 PM STEAM PIPE FITTER) eGFR 80 >=60 mL/min/1. 73 m2 Comment: Interpretive Data Reference Interval Normal >/= 90 mL/min/1.73m2 Mildly decreased* 60 - 89 mL/min/1.73m2 Mildly to moderately decreased 45 - 59 mL/min/1.73m2 Moderately to severely decreased 30 - 44 mL/min/1.73m2 Severely decreased 15 - 29 mL/min/1.73m2 Kidney Failure < 15 mL/min/1.73m2 *Relative to young adult level Estimated glomerular filtration rate is determined by the 2020 CKD-EPI equation recommended by the National Kidney Foundation (A Unifying Approach to GFR Estimation: Recommendations of the NKF-ASK Task Force on Reassessing the Inclusion of Race in Diagnosing Kidney Disease, JASN 2020). The CKD-EPI equation should not be used for patients with unstable renal function and has not been validated in children and those over 70. Current interpretive data was last reviewed 2021. Blood 08/09/2025 1:17 PM STEAM PIPE FITTER 08/09/2025 1:29 PM STEAM PIPE FITTER us Kieran Solano MD LAB BLOOD ORDERABLES Fin al Result [facility] ([place] 1 [facility] [place] [address] * (ABNORMAL) Differential, auto (08/09/2025 1:17 PM STEAM PIPE FITTER) Neutrophil abs 5.29 1.50 - 6.50 K/cumm Imm gran abs 0.01 0.00 - 0.10 K/cumm [facility] ([place]) Lymphocyte abs 0.49(L) 0.80 - 3.30 K/cumm [facility] ([place]) Monocyte abs 0.60 0.20 - 0.80 K/cumm [facility] ([place]) Eosinophil abs 0.07 0.00 - 0.50 K/cumm [facility] ([place]) Basophil abs 0.03 0.00 - 0.10 K/cumm [facility] ([place]) Neutrophil pct 81.4 % [facility] ([place] Comment: Interpretive Data Percent cell count reference ranges are not reported, since discordance with absolute values may lead to misinterpretation of CBC data. Current Interpretive Data was last revised on 2017. Imm gran pct 0.2 % [facility] ([place]) Comment: Interpretive Data Percent cell count reference ranges are not reported, since discordance with absolute values may lead to misinterpretation of CBC data. Current Interpretive Data was last revised on 2017. Lymphocyte pct 7.6 % [facility] ([place]) Comment: Interpretive Data Percent cell count reference ranges are not reported, since discordance with absolute values may lead to misinterpretation of CBC data. Current Interpretive Data was last revised on 2017. Monocyte pct 9.2 % [facility] ([place]) Comment: Interpretive Data Percent cell count reference ranges are not reported, since discordance with absolute values may lead to misinterpretation of CBC data. Current Interpretive Data was last revised on 2017. Eosinophil pct 1.1 % [facility] ([place] Comment: Interpretive Data Percent cell count reference ranges are not reported, since discordance with absolute values may lead to misinterpretation of CBC data. Current Interpretive Data was last revised on 2017. Basophil pct 0.5 % [facility] ([place]) Comment: Interpretive Data Percent cell count reference ranges are not reported, since discordance with absolute values may lead to misinterpretation of CBC data. Current Interpretive Data was last revised on 2017. Blood 08/09/2025 1:17 PM STEAM PIPE FITTER 08/09/2025 1:29 PM STEAM PIPE FITTER us Kieran Solano MD LAB BLOOD ORDERABLES Fin al Result [facility] ([place] 1 [facility] [place] [address] * (ABNORMAL) Urinalysis reflex to microscopic and culture Urine, clean voided (08/09/2025 1:17 PM STEAM PIPE FITTER) Color, ur Yellow Yellow Clarity, ur Clear Clear [facility] ([place]) Specific gravity, ur 1.018 1.003 - 1.030 [facility] ([place]) pH, urine 7.0 [facility] ([place]) Comment: Interpretive Data U rine pH is affected by diet, medications, systemic acid-base disturbances, and renal tubular function. pH may affect urinary stone formation. For example, urine pH below 6.0 may help reduce the tendency for calcium phosphate stones and pH greater than 6.0 may reduce the tendency for uric acid stone formation. Source: [facility] Mashed Pixel Current Interpretive Data was last revised on 2017 Protein, ur ql Trace Negative [facility] ([place]) Glucose, ur ql Negative Negative [facility] ([place]) Ketones, ur Negative Negative [facility] ([place]) Bilirubin, ur Negative Negative [facility] ([place]) Blood, ur Negative Negative [facility] ([place]) Urobilinogen, ur <2.0 <2.0 mg/dL [facility] ([place]) Nitrite, ur Negative Negative [facility] ([place]) Leukocyte esterase, ur 2+(A) Negative [facility] ([place]) UA reflex comment Reflex to microscopic UA will be performed. [facility] ([place]) Urine, clean voided 08/09/2025 1:17 PM STEAM PIPE FITTER 08/09/2025 3:00 PM STEAM PIPE FITTER Kieran Solano MD LAB MICROBIOLOGY - GENER AL ORDERABLES Final Result Performing Organization Address [facility] Co de Phone Number [facility] ([place] [address] [facility] [place] [address] * CBC with auto differential (08/09/2025 1:17 PM STEAM PIPE FITTER) WBC 6.49 3.80 - 9.90 K/cumm Hgb 13.4 11.9 - 15.5 g/dL [facility] Hct 39.1 35.6 - 45.5 % [facility] ([place]) Plt 201 150 - 400 K/cumm [facility] ([place]) MPV 9.6 9.1 - 12.3 fL [facility] ([place]) RBC 4.31 3.90 - 5.20 M/cumm [facility] ([place]) MCV 90.7 81.3 - 96.4 fL [facility] ([place]) MCH 31.1 27.1 - 33.3 pg [facility] ([place]) MCHC 34.3 32.3 - 35.7 g/dL [facility] ([place]) RDW CV 11.7 11.1 - 14.9 % [facility] ([place]) RDW SD 39.2 35.7 - 48.1 fL [facility] ([place]) NRBC abs 0.00 0.00 - 0.01 K/cumm [facility] ([place]) Blood 08/09/2025 1:17 PM STEAM PIPE FITTER 08/09/2025 1:29 PM STEAM PIPE FITTER Kieran Solano MD LAB BLOOD ORDERABLES Fin al Result Performing Organization Address City/[facility]/ZIP Co de Phone Number [facility] ([place]) 1 [facility] [place] [address] * (ABNORMAL) Urinalysis, microscopic only (08/09/2025 1:17 PM STEAM PIPE FITTER) WBC, ur 6-10(A) 0 - 5 /HPF RBC, ur 0-2 0 - 2 /HPF [facility] ([place]) Epithelial cells, squamous, ur 1-5 0 - 5 /HPF [facility] ([place]) Mucous, ur Present(A) [facility] A ([place]) Hyaline casts, ur 1-5 0 - 10 /LPF [facility] ([place]) Culture Reflex Comment Reflex conditions for urine culture (WBC >10) not met. [facility] ([place]) Urine, clean voided 08/09/2025 1:17 PM STEAM PIPE FITTER 08/09/2025 3:00 PM STEAM PIPE FITTER us Kieran Solano MD LAB URINE ORDERABLES [facility] al Result [facility] ([place]) 1 [facility] [place] [address] * Comprehensive metabolic panel (08/09/2025 1:17 PM STEAM PIPE FITTER) Sodium 138 135 - 145 mmol/L Potassium, pl 4.2 3.3 - 4.9 mmol/L [facility] ([place]) Chloride 103 97 - 110 mmol/L [facility] ([place]) CO2 25 22 - 32 mmol/L [facility] ([place]) Anion gap 10 2 - 15 mmol/L [facility] ([place]) BUN 11 6 - 25 mg/dL [facility] ([place]) Creatinine 0.78 0.60 - 1.10 mg/dL [facility] ([place]) Glucose 96 70 - 199 mg/dL [facility] ([place]) Comment: Interpretive Data Fasting glucose >/= 126 mg/dl is diagnostic for diabetes. Fasting is defined as no caloric intake for at least 8 hours. Fasting glucose between 100 mg/dl to 125 mg/dl is diagnostic of prediabetes. In a patient with classic symptoms of hyperglycemia or hyperglycemic crisis, a random glucose >/= 200 mg/dl is diagnostic for diabetes. In the absence of unequivocal hyperglycemia, results should be confirmed by repeat testing. The classification and Diagnosis of Diabetes Diabetes Care 2021; 46: S19-S40. Current interpretive data was last revised 2022. Calcium 9.1 8.5 - 10.3 mg/dL [facility] ([place]) Bilirubin, total 0.5 0.1 - 1.2 mg/dL [facility] ([place]) Protein, pl 7.1 6.5 - 8.5 g/dL [facility] ([place]) Albumin 4.5 3.5 - 5.0 g/dL [facility] ([place]) Alk phos 59 40 - 130 Units/L [facility] ([place]) ALT 12 7 - 45 Units/L [facility] ([place]) AST 24 10 - 45 Units/L [facility] ([place]) Blood 08/09/2025 1:17 PM STEAM PIPE FITTER 08/09/2025 1:29 PM STEAM PIPE FITTER us Kieran Solano MD LAB BLOOD ORDERABLES Fin al Result [facility] ([place] 1 [facility] [place] [address] * Hemoglobin A1c (07/15/2025 2:10 PM CDT) Blood us Maday Lopez MD LAB BLOOD ORDERABLES Final R esult * Screening Mammogram Bilateral W Melanie (02/09/2025 9:18 AM CDT) Anatomical Region Laterality Modality Breast Bilateral Mammography Impressions 02/09/2025 1:16 PM CDT Bilateral No evidence of malignancy in either breast. OVERALL BI-RADS FINAL ASSESSMENT: 1 - Negative RECOMMENDATION: Recommend bilateral annual screening mammography. Narrative 02/09/2025 1:16 PM CDT EXAMINATION: Screening Mammogram Bilateral W Melanie: 02/09/2025 COMPARISON: Relevant prior studies available at the time of interpretation were reviewed. TECHNIQUE: Mammography was performed with 2D and digital breast tomosynthesis (DBT) images. CAD was utilized. BREAST PARENCHYMAL COMPOSITION: There are scattered areas of fibroglandular density. FINDINGS: Bilateral There is no suspicious mass, calcification, or architectural distortion in either breast. us Self Screening Mammogram IMG MAMMO PROCEDURES Fi nal Result from Last 3 Months or Most Recently Relevant to Health Maintenance Additional Health Concerns Active Problems Noted Date Diagnosed Date Autogenerated Problem 08/15/2025 Insurance [place]IC[place] [address] Care Teams Design Studio Consultant Relationship Specialty Start Date End Date Maday Lopez MD [address] [place] [address] PCP - General Internal Medicine 11/04/23 López Santiago OT Occupational Therapist Occupational Therapy 08/16/25
--- OUTSIDE RECORDS SUMMARY | 2025-08-22 14:50 | XMS_ITS | Encounter Summary ---
Author Organization [facility] Address [facility] [place] [address] Care Team Providers Care Mineral Ore Processing Labourer Name Role Phone Shabbir Montoya MD Primary Care Provider [phone] Anjum Orozco MD Unavailable [phone] Genesis Coyne APRN KEY CARRIER-C Unavailable Maday Lopez MD Primary Care Provider [phone] Jasmin Coronado MD Unavailable [phone] Bob Kearney MD Unavailable [phone] Kieran Solano MD Unavailable [phone] Encounter Details Date Type Department Care Team (Late st Contact Info) Description 12/04/2022 Hospital Orders Only [facility] Flight Operations Inspector Pre/Post [address] [place] [address] Anjum Orozco MD [address] [place] [address] Social History Tobacco Use Types [...] Coronavirus/COVID-19? No / Unsure 11/11/2022 6:58 AM MUSIC WORKER documented as of this encounter Plan of Treatment Upcoming Encounters Date Type Department Care Team (Late st Contact Info) Description 05/29/2026 10:00 AM CDT Appointment [facility] Non Invasive Cardiology - [facility] [address] [place] [address] Genesis Coyne APRN, KEY CARRIER-C [address] [phone] 05/29/2026 11:30 AM CDT Office Visit [facility] [address] [place] [phone] Genesis Coyne APRN, KEY CARRIER-C [address] [address] documented as of this encounter Visit Diagnoses Not on filedocumented in this encounter Care Teams Mineral Ore Processing Labourer Relationship Specialty Start Date End Date Shabbir Montoya MD [address] [place] [address] PCP - General INTERNAL MEDICINE 09/30/22 05/05/24 Maday Lopez MD [address] [place] [address] PCP - General INTERNAL MEDICINE 05/06/24 Anjum Orozco MD [address] [place] [phone] Consulting Physician CARDIOVASCULAR DISEASE 07/27/23 Genesis Coyne APRN, KEY CARRIER-C [address] [facility] [address] [place] [address] NURSE PRACTITIONER 07/27/23 Jasmni Coronado MD [address] [place] [address] INTERVENTIONAL CARDIOLOGY 05/08/24 03/28/25 Bob Kearney MD [address] [place] [address] Consulting Physician INTERVENTIONAL CARDIOLOGY 03/29/25 Kieran Solano MD [address] [phone] ORTHOPAEDIC SURGERY 08/07/25 documented as of this encounter
--- OUTSIDE RECORDS SUMMARY | 2025-08-22 14:50 | XMS_ITS | Clinical Summary ---
Author Organization [facility] Address [facility] [place] [address] Care Team Providers Care Consulting Actuary Name Role Phone Genesis Coyne APRN, NP-C Unavailable Maday Lopez MD Primary Care Provider Terry Kearney MD Unavailable Kieran Solano MD Unavailable [phone] Allergies Active Allergy Reactions Criticality Noted Date Comments Clarithromycin Rash Low 04/25/2014 biaxin Grass Unknown 07/13/2018 Ragweed Unknown 07/13/2018 Sulfa Antibiotics Unknown 04/25/2014 Tramadol GI Upset Low 05/26/2025 Medications albuterol sulfate HFA 108 (90 Base) [...] (400 Units total) by mouth daily. Active [place]-3 Fatty Acids (FISH OIL) 1200 MG Cap Take 2 capsules by mouth daily. Active budesonide (PULMICORT) 0.5 MG/2ML nebulizer solution Take by nebulization as needed. 3 Active aspirin EC (ECOTRIN) [...] Take 1 tablet by mouth daily. Active PROLIA 60 MG/ML injection Inject 1 mL (60 mg total) into the skin. 5 Active losartan-hydroC HLOROthiazide (HYZAAR) 50-12.5 MG tablet Take 1 tablet by mouth daily. Active meloxicam (MOBIC) 7.5 MG tablet Take 1 tablet (7.5 mg total) by mouth 2 (two) times daily as needed. Active mometasone furoate (ELOCON) 0.1 % solution Apply topically daily. 5 Active Active Problems Problem Noted Date Diagnosed Date S/P coronary artery stent placement 06/08/2023 Labile hypertension Mild aortic valve stenosis Allergic rhinitis with moder ate asthma without status asthmaticus Mixed hyperlipidemia Resolved Problems Problem Noted Date Diagnosed Date Resolved Date Coronary artery disease invo lving knik heart without angina pectoris 12/11/2022 12/11/2022 Encounters Date Type Department Care Team Description 08/07/2025 Telephone [facility] [address] [place] [address] Genesis Coyne, JUANJOSE, STITCHDOWNS TOE FORMER-C Surgical Clearance 05/26/2025 2:00 PM CDT [facility] [address] [place] [address] Genesis Coyne APRN, CELINAC Follow Up; Coronary Artery Disease 05/26/2025 10:53 AM CDT - 05/26/2025 11:59 PM CDT Hospital Encounter [facility] Vascular Ultrasound - [facility] [address] [place] [address] Genesis Coyne APRN, STITCHDOWNS TOE FORMER-C Discharge Disposition: Home or Self Care (Routine Discharge) 05/26/2025 10:53 AM CDT - 05/26/2025 11:59 PM CDT Hospital Encounter [facility] Non Invasive Cardiology - [facility] [address] [place] [address] Genesis Coyne APRN, STITCHDOWNS TOE FORMER-C Discharge Disposition: Home or Self Care (Routine Discharge) 05/26/2025 Results Follow-Up [facility] [address] [place] [address] Genesis Coyne APRN, STITCHDOWNS TOE FORMER-C USE ECHOCARDIOGRAM 05/26/2025 Results Follow-Up [facility] [address] [place] [address] Genesis Coyne APRN, STITCHDOWNS TOE FORMER-C USV CAROTID DUPLEX CONRAD 05/26/2025 Misc Documentation [facility] [address] [place] [address] Dalia Georges Study 05/26/2025 Travel from Last 3 Months Family History Medical History Relation Comments Hypertension [...] Sign Reading Time Taken Comments Blood Pressure 130/86 05/26/2025 12:20 PM CDT Pulse 75 05/26/2025 12:20 PM CDT Temperature 35.7 C (96.3 F) 12/11/2022 9:00 AM CDT Respiratory Rate 16 05/26/2025 12:20 PM CDT Oxygen Saturation 97% 05/26/2025 12:20 PM CDT Inhaled Oxygen Concentration - - Weight 82.6 kg (182 lb) 05/26/2025 12:20 PM CDT Height 158.8 cm (5' 2.5) 05/26/2025 12:20 PM CD T Body Mass Index 32.76 05/26/2025 12:20 PM CDT Plan of Treatment Upcoming Encounters Date Type Department Care Team (Late st Contact Info) Description 05/29/2026 10:00 AM CDT Appointment [facility] Non Invasive Cardiology - [facility] [address] [place] [address] Genesis Coyne APRN, STITCHDOWNS TOE FORMER-C [address] [phone] 05/29/2026 11:30 AM CDT [facility] [address] [place] [address] Genesis Coyne APRN, STITCHDOWNS TOE FORMER-C [address] [phone] Health Maintenance Due Date Last Done Comments ASCVD Statin 1950 Colorectal Cancer Screening Colonoscopy (10 Years) 1950 Hepatitis C 1969 RSV Immunization or 60+ Years (1 - Risk 60-74 years 1-dose series) 2011 Annual Medicare Wellness Visit 2016 Dexa Scan (General) 2016 DTaP, Tdap and Td Vaccines (2 - Td or Tdap) 05/12/2022 05/12/2012 COVID-19 Vaccine (3 - season) 2025 05/17/2021, 04/18/2021 Influenza Adult (#1) 2025 08/02/2019, 08/06/2017, 07/11/2015, Additional history exists Pneumococcal Vaccine: 50+ Years (3 of 3 - PCV20 or PCV21) 12/05/2025 12/05/2020, 09/10/2015, 10/08/2009, Additional history exists Mammogram Screening 02/09/2027 02/09/2025, 12/29/2023, 12/23/2022, Additional history exists Zoster Vaccines Completed 09/27/2022, 05/23, 09/19/2015 Hepatitis A Vaccines Aged Out No long er eligible based on patient's age to complete this topic Meningococcal B Vaccine Aged Out No l onger eligible based on patient's age to complete this topic Meningococcal Vaccine Aged Out No alexandre cindy eligible based on patient's age to complete this topic RSV Immunizations Under 20 Months Aged Out No longer eligible based on patient's age to complete this topic Medical Devices Implanted Type Area Engraver Lettering Device Identifier Shelf Expiration Date Model / Serial / Lot Cv Xience 2.5mm X 28mm Mt Prox Diag1- 3 Implanted:11/20 by Jasmin Coronado MD (Quantity not on file) Stent Coronary MARIO [facility]ULAR 12/30/2023 [id number] Procedures Procedure Name Priority Date/Time Associated Diagnosis Comments ELECTROCARDIOGRAM (NON MIDMARK ACQUIRED) Routine 05/26/2025 12:23 PM CDT Bilateral carotid artery stenosis Coronary artery disease involving knik coronary artery of knik heart without angina pectoris Essential (primary) hypertension Mixed hyperlipidemia USV CAROTID DUPLEX CONRAD Routine 12:15 PM CDT Bilateral carotid artery stenosis USE ECHOCARDIOGRAM Routine 05/26/2025 11 :46 AM CDT Nonrheumatic aortic valve stenosis from Last 3 Months Results * ELECTROCARDIOGRAM (05/26/2025 12:23 PM CDT) 05/26/2025 12:2 3 PM CDT Narrative [facility] - 05/28/2025 12:40 PM CDT [facility] [address] [id number] Test Date: 2025-05-26 Pat Name: [facility] Department: 105 Room: Gender: Female Train Electronic Technician: : 1950 Requested By: TERRY KEARNEY Order Number: [id number] Reading MD: Terry Kearney Measurements Intervals [place] Rate: 77 P: -5 SC: 155 QRS: -24 QRSD: 105 T: 28 QT: 414 QTc: 470 Interpretive Statements SINUS RHYTHM BORDERLINE LEFT AXIS DEVIATION Procedure Note Terry Kearney MD - 05/28/[address] [address] Test Date: 2025-05-26 Pat Name: [facility] Department: 105 Room: Gender: Female Train Electronic Technician: : 1950 Requested By: TERRY KEARNEY Order Number: [id number] Reading MD: Terry Kearney Measurements Intervals [place] Rate: 77 P: -5 SC: 155 QRS: -24 QRSD: 105 T: 28 QT: 414 QTc: 470 Interpretive Statements SINUS RHYTHM BORDERLINE LEFT AXIS DEVIATION us Terry Kearney MD PROCEDURES-ORDERABLE NO JEAN RGE Final Result [facility] * USV CAROTID DUPLEX CONRAD (05/26/2025 12:15 PM CDT) Anatomical Region Laterality Modality Neck Ultrasound 05/26/2025 11:5 1 AM CDT Narrative 05/26/2025 6:14 PM CDT [facility] Vascular Report Pat.Name: FABIANA SHOEMAKER Pat.ID: [id number] St.Date: 05/26/2025 Refer.MD: [id number] ANJUM Quach EWDPROV EWDPROV Exam Time: 11:51:00 AM Study Type:PVI CAROTID SCAN - BILATERAL Height: 157 cm Age: 9 1950,74Y Sex: F Sonogrphr: JONATHAN Ochoa Pat. Stat.:Outpatient ICD - 9: I65.23 Carotid occlusion/Stenosis bilateral CPT - 4: 70558 Carotid Duplex Reason for Study:Carotid Stenosis History / Clinical:Valvular heart disease, aortic stenosis Race: O ++++++++++++++++++++++++++++++++++++ FINDINGS: ++++++++++++++++++++++++++++++++++++ Rt Innom: The innominate artery is patent. Rt Subcl: The proximal subclavian artery is patent. Rt ICA: 0-39% stenosis without plaque noted in the internal carotid artery. Rt ECA: Patent with antegrade flow noted in the external carotid artery. Rt Vert: Normal antegrade vertebral flow. Lt Subcl: The proximal subclavian artery is patent. Lt ICA: 0-39% stenosis without plaque noted in the internal carotid artery. Tortuous ICA noted. Lt ECA: Patent with antegrade flow noted in the external carotid artery. Lt Vert: Normal antegrade vertebral flow. Carotid Findings: Right Left Verteb.Flw Antegrade Antegrade ++++++++++++++++++++++++++++++++++++ MEASUREMENTS: ++++++++++++++++++++++++++++++++++++ DOPPLER Right CCA Prox Prox CCA PSV 79.5 cm/s Prox CCA EDV 17.8 cm/s Right Innominate Innominate PSV 75.3 cm/s Right CCA Mid Mid CCA PSV 56.6 cm/s Mid CCA EDV 16.1 cm/s Right CCA Dist Dist CCA PSV 53.4 cm/s Dist CCA EDV 16 cm/s Right ICA Prox Prox ICA PSV 44.5 cm/s Prox ICA EDV 16 cm/s Right ICA Mid Mid ICA PSV 53.4 cm/s Mid ICA EDV 20.2 cm/s Right ICA Dist Dist ICA PSV 85.4 cm/s Dist ICA EDV 28.5 cm/s Right ECA Prox Prox ECA PSV 52.2 cm/s Prox ECA EDV 10.1 cm/s Right Vertebral Vertebral PSV 46.4 cm/s Vertebral EDV 15.9 cm/s Right Prox SCA Prox SCA PSV 56.5 cm/s Prox SCA PSV 56.5 cm/s Right ICA/CCA RATIO ICA/CCA RATIO P 1.6 Left CCA Prox Prox CCA PSV 80.1 cm/s Prox CCA EDV 15.2 cm/s Left CCA Mid Mid CCA PSV 65.6 cm/s Mid CCA EDV 17.2 cm/s Left CCA Dist Dist CCA PSV 51.7 cm/s Dist CCA EDV 17.9 cm/s Left ICA Prox Prox ICA PSV 55.1 cm/s Prox ICA EDV 14.8 cm/s Left ICA Mid Mid ICA PSV 57.5 cm/s Mid ICA EDV 19.3 cm/s Left ICA Dist Dist ICA PSV 73.6 cm/s Dist ICA EDV 24 cm/s Left ECA Prox Prox ECA PSV 50.9 cm/s Prox ECA EDV 9.54 cm/s Left Vertebral Vertebral PSV 57.5 cm/s Vertebral EDV 19.6 cm/s Left Prox SCA Prox SCA PSV 76.2 cm/s Prox SCA PSV 76.2 cm/s Left ICA/CCA RATIO ICA/CCA RATIO P 1.42 <Electronic Signature> 05/26/2025 06:14 PM Emelyn Carty M.D. Procedure Note Emelyn Carty MD - 05/26/2025 [facility] Vascular Report Pat.Name: FABIANA SHOEMAKER Pat.ID: [id number] .Date: 05/26/2025 : [id number] ANJUM Quach EWDPROV EWDPROV Exam Time: 11:51:00 AM Study Type:PVI CAROTID SCAN - BILATERAL Height: 157 cm Age: 9 1950,74Y Sex: F Sonogrphr: JONATHAN Ochoa Pat. Stat.:Outpatient ICD - 9: I65.23 Carotid occlusion/Stenosis bilateral CPT - 4: 82334 Carotid Duplex Reason for Study:Carotid Stenosis History / Clinical:Valvular heart disease, aortic stenosis Race: O ++++++++++++++++++++++++++++++++++++ FINDINGS: ++++++++++++++++++++++++++++++++++++ Rt Innom: The innominate artery is patent. Rt Subcl: The proximal subclavian artery is patent. Rt ICA: 0-39% stenosis without plaque noted in the internal carotid artery. Rt ECA: Patent with antegrade flow noted in the external carotid artery. Rt Vert: Normal antegrade vertebral flow. Lt Subcl: The proximal subclavian artery is patent. Lt ICA: 0-39% stenosis without plaque noted in the internal carotid artery. Tortuous ICA noted. Lt ECA: Patent with antegrade flow noted in the external carotid artery. Lt Vert: Normal antegrade vertebral flow. Carotid Findings: Right Left Verteb.Flw Antegrade Antegrade ++++++++++++++++++++++++++++++++++++ MEASUREMENTS: ++++++++++++++++++++++++++++++++++++ DOPPLER Right CCA Prox Prox CCA PSV 79.5 cm/s Prox CCA EDV 17.8 cm/s Right Innominate Innominate PSV 75.3 cm/s Right CCA Mid Mid CCA PSV 56.6 cm/s Mid CCA EDV 16.1 cm/s Right CCA Dist Dist CCA PSV 53.4 cm/s Dist CCA EDV 16 cm/s Right ICA Prox Prox ICA PSV 44.5 cm/s Prox ICA EDV 16 cm/s Right ICA Mid Mid ICA PSV 53.4 cm/s Mid ICA EDV 20.2 cm/s Right ICA Dist Dist ICA PSV 85.4 cm/s Dist ICA EDV 28.5 cm/s Right ECA Prox Prox ECA PSV 52.2 cm/s Prox ECA EDV 10.1 cm/s Right Vertebral Vertebral PSV 46.4 cm/s Vertebral EDV 15.9 cm/s Right Prox SCA Prox SCA PSV 56.5 cm/s Prox SCA PSV 56.5 cm/s Right ICA/CCA RATIO ICA/CCA RATIO P 1.6 Left CCA Prox Prox CCA PSV 80.1 cm/s Prox CCA EDV 15.2 cm/s Left CCA Mid Mid CCA PSV 65.6 cm/s Mid CCA EDV 17.2 cm/s Left CCA Dist Dist CCA PSV 51.7 cm/s Dist CCA EDV 17.9 cm/s Left ICA Prox Prox ICA PSV 55.1 cm/s Prox ICA EDV 14.8 cm/s Left ICA Mid Mid ICA PSV 57.5 cm/s Mid ICA EDV 19.3 cm/s Left ICA Dist Dist ICA PSV 73.6 cm/s Dist ICA EDV 24 cm/s Left ECA Prox Prox ECA PSV 50.9 cm/s Prox ECA EDV 9.54 cm/s Left Vertebral Vertebral PSV 57.5 cm/s Vertebral EDV 19.6 cm/s Left Prox SCA Prox SCA PSV 76.2 cm/s Prox SCA PSV 76.2 cm/s Left ICA/CCA RATIO ICA/CCA RATIO P 1.42 <Electronic Signature> 05/26/2025 06:14 PM Emelyn Carty M.D. us ANASTACIO Franz APRN [facility] Final Result * USE ECHOCARDIOGRAM (05/26/2025 11:46 AM CDT) Anatomical Region Laterality Modality Cardiac Echocardiogram 05/26/2025 11:0 0 AM CDT Narrative 05/26/2025 3:23 PM CDT Echocardiography Report Pat.Name: FABIANA SHOEMAKER Pat.ID: [id number] .Date: 05/26/2025 Refer.: [id number] ANJUM Quach EWDPROV EWDPROV Exam Time: 11:00:00 AM Study Type:ECHO WITH CARDIAC DOPPLER COMP Height: 157 cm Weight: 83.5 kg BSA: 1.84 m2 Age: 9 1950,74Y Sex: F BP: 116/84 HR: 69 bpm Sonogrphr: Tamela Mcgovern RDCS, RVT, RDMS Pat. Stat.:Outpatient CPT - 4: 81332 Reason for Study:Aortic stenosis History / Clinical:Valvular heart disease, aortic stenosis Procedures: 2D, M-mode, Doppler, Color Flow Race: O ++++++++++++++++++++++++++++++++++++ SUMMARY: ++++++++++++++++++++++++++++++++++++ The left ventricular systolic function is normal. The calculated ejection fraction is 60%. Mild concentric left ventricular hypertrophy. Left ventricular diastolic function is abnormal (grade 1 - impaired relaxation). Right ventricular systolic function is normal. Moderate aortic valve stenosis (Mean gradient 20 mmhg). Compared to previous study, there is progression for aortic stenosis from mild to moderate. ++++++++++++++++++++++++++++++++++++ FINDINGS: ++++++++++++++++++++++++++++++++++++ LV: The left ventricular size is normal. The left ventricular systolic function is normal. The calculated ejection fraction is 60%. Mild concentric left ventricular hypertrophy. The lateral E/e' is . Left ventricular diastolic function is abnormal (grade 1 - impaired relaxation). WM: Wall motion appears normal in all segments. RV: The right ventricular size is normal. Right ventricular systolic function is normal. Right ventricular systolic pressure is 30 mmHg. TAPSE = 22mm (<16 mm indicates systolic RV dysfunction). LA: The left atrial volume is mildly increased (34- 41ml/M2). RA: Right atrial size is normal. NORM: No evidence of pericardial effusion. AO: Normal aortic root. PA: Estimated right atrial pressure of 3 mmHg. SVn: Inferior vena cava shows >50% collapse with respiration consistent with normal right atrial pressure. AV: The aortic valve is trileaflet. Moderate aortic valve stenosis. The peak velocity across the aortic valve measures 2.75m/sec with a peak gradient of 30mmHg and a mean gradient of 20mmHg. The calculated aortic valve area is 1.23cm2. No evidence of aortic valve regurgitation. Moderate calcification of aortic valve leaflets. Dimensionless index of 0.3. MV: Trace to mild mitral regurgitation. No evidence of mitral valve stenosis. Heavily calcified posterior mitral annulus. Moderate thickening of mitral valve leaflets. PV: The pulmonic valve is normal There is trace pulmonic regurgitation TV: Structurally normal tricuspid valve. A trace of tricuspid regurgitation. ++++++++++++++++++++++++++++++++++++ MEASUREMENTS: ++++++++++++++++++++++++++++++++++++ DOPPLER LVOT LVOTpkPG 3.4 mmHg LVOTmnPG 1.9 mmHg LVOTpkVel 92.7 cm/s (70-110) LVOT SV 77 ml LVOT TVI 21.1 cm LVOT CO 90 ml/s AV Forward Flow AV TVI 60.6 cm AV pkPG 30 mmHg AV pkVel 275 cm/s (100-170)* Area (TVI) 1.27 cm2 (3-5)* AV mnVel 216 cm/s Area (Chandu) 1.23 cm2 (3-5)* AV mnPG 19.8 mmHg MV Forward Flow MV DeTm 239 msec MV E/A 0.8 MV mnPG 2 mmHg MV pkE 80.1 cm/s (60-130) MV pkPG 5 mmHg MV pkA 100 cm/s TV Regurg Flow TV pkPG 27 mmHg TV pkVel 259 cm/s (30-70)* Right Ventricle RVsys P 30 mmHg Right Ventricle 11.5 cm/s Lat E' Lat e 6.64 cm/s Lat E/E' Lat E/e 12.1 Med E' Med e 4.57 cm/s Med E/E' Med E/e 17.5 Aortic Valve Aortic Valve Ar 0.69 Aortic Valve Ve 0.34 AV DI Value 0.3 GRETA (VTI) Index Value 0.69 LV Mass 2D Value 149 g LV Mass [id number] Value 81 g/m2 RA Volume Atrial Ellison 4.33 cm Atrial Ellison 12.4 cm2 Atrial Ellison 28.6 ml 2D Left Ventricle LVIDd 4.24 cm (3.6-5.2) LV EF(Bi-Plane) 60 % (55-75) LVIDs 2.75 cm (2.3-3.9) LVPW LVPWd 1 cm Ventricular Septum IVSd 1.1 cm Aorta Ao Rtd 3.2 cm (zsc 1.4) Ao Asc 3.5 cm (zsc 3.9)* LVOT LVOT 2.16 cm Ratios IVS LA Biplane LAVol I BP 36.1 ml/m2 MMODE Left Atrium LAID 4.9 cm (1.9-4)* Ratios LA/Ao 1.63 (0.87-1.1)* Aorta Ao Rt 3 cm (2-3.7) TA Tricuspid Annul 2.23 cm <Electronic Signature> 05/26/2025 03:23 PM Terry Kearney M.D. Procedure Note Terry Kearney MD - 05/26/2025 Echocardiography Report Pat.Name: FABIANA SHOEMAKER Pat.ID: [id number] .Date: 05/26/2025 : [id number] ANJUM Quach EWDPROV EWDPROV Exam Time: 11:00:00 AM Study Type:ECHO WITH CARDIAC DOPPLER COMP Height: 157 cm Weight: 83.5 kg BSA: 1.84 m2 Age: 9 1950,74Y Sex: F BP: 116/84 HR: 69 bpm Sonogrphr: Tamela Mcgovern RDCS, RVT, RDMS Pat. Stat.:Outpatient CPT - 4: 25381 Reason for Study:Aortic stenosis History / Clinical:Valvular heart disease, aortic stenosis Procedures: 2D, M-mode, Doppler, Color Flow Race: O ++++++++++++++++++++++++++++++++++++ SUMMARY: ++++++++++++++++++++++++++++++++++++ The left ventricular systolic function is normal. The calculated ejection fraction is 60%. Mild concentric left ventricular hypertrophy. Left ventricular diastolic function is abnormal (grade 1 - impaired relaxation). Right ventricular systolic function is normal. Moderate aortic valve stenosis (Mean gradient 20 mmhg). Compared to previous study, there is progression for aortic stenosis from mild to moderate. ++++++++++++++++++++++++++++++++++++ FINDINGS: ++++++++++++++++++++++++++++++++++++ LV: The left ventricular size is normal. The left ventricular systolic function is normal. The calculated ejection fraction is 60%. Mild concentric left ventricular hypertrophy. The lateral E/e' is . Left ventricular diastolic function is abnormal (grade 1 - impaired relaxation). WM: Wall motion appears normal in all segments. RV: The right ventricular size is normal. Right ventricular systolic function is normal. Right ventricular systolic pressure is 30 mmHg. TAPSE = 22mm (<16 mm indicates systolic RV dysfunction). LA: The left atrial volume is mildly increased (34- 41ml/M2). RA: Right atrial size is normal. NORM: No evidence of pericardial effusion. AO: Normal aortic root. PA: Estimated right atrial pressure of 3 mmHg. SVn: Inferior vena cava shows >50% collapse with respiration consistent with normal right atrial pressure. AV: The aortic valve is trileaflet. Moderate aortic valve stenosis. The peak velocity across the aortic valve measures 2.75m/sec with a peak gradient of 30mmHg and a mean gradient of 20mmHg. The calculated aortic valve area is 1.23cm2. No evidence of aortic valve regurgitation. Moderate calcification of aortic valve leaflets. Dimensionless index of 0.3. MV: Trace to mild mitral regurgitation. No evidence of mitral valve stenosis. Heavily calcified posterior mitral annulus. Moderate thickening of mitral valve leaflets. PV: The pulmonic valve is normal There is trace pulmonic regurgitation TV: Structurally normal tricuspid valve. A trace of tricuspid regurgitation. ++++++++++++++++++++++++++++++++++++ MEASUREMENTS: ++++++++++++++++++++++++++++++++++++ DOPPLER LVOT LVOTpkPG 3.4 mmHg LVOTmnPG 1.9 mmHg LVOTpkVel 92.7 cm/s (70-110) LVOT SV 77 ml LVOT TVI 21.1 cm LVOT CO 90 ml/s AV Forward Flow AV TVI 60.6 cm AV pkPG 30 mmHg AV pkVel 275 cm/s (100-170)* Area (TVI) 1.27 cm2 (3-5)* AV mnVel 216 cm/s Area (Chandu) 1.23 cm2 (3-5)* AV mnPG 19.8 mmHg MV Forward Flow MV DeTm 239 msec MV E/A 0.8 MV mnPG 2 mmHg MV pkE 80.1 cm/s (60-130) MV pkPG 5 mmHg MV pkA 100 cm/s TV Regurg Flow TV pkPG 27 mmHg TV pkVel 259 cm/s (30-70)* Right Ventricle RVsys P 30 mmHg Right Ventricle 11.5 cm/s Lat E' Lat e 6.64 cm/s Lat E/E' Lat E/e 12.1 Med E' Med e 4.57 cm/s Med E/E' Med E/e 17.5 Aortic Valve Aortic Valve Ar 0.69 Aortic Valve Ve 0.34 AV DI Value 0.3 GRETA (VTI) Index Value 0.69 LV Mass 2D Value 149 g LV Mass [id number] Value 81 g/m2 RA Volume Atrial Ellison 4.33 cm Atrial Ellison 12.4 cm2 Atrial Ellison 28.6 ml 2D Left Ventricle LVIDd 4.24 cm (3.6-5.2) LV EF(Bi-Plane) 60 % (55-75) LVIDs 2.75 cm (2.3-3.9) LVPW LVPWd 1 cm Ventricular Septum IVSd 1.1 cm Aorta Ao Rtd 3.2 cm (zsc 1.4) Ao Asc 3.5 cm (zsc 3.9)* LVOT LVOT 2.16 cm Ratios IVS LA Biplane LAVol I BP 36.1 ml/m2 MMODE Left Atrium LAID 4.9 cm (1.9-4)* Ratios LA/Ao 1.63 (0.87-1.1)* Aorta Ao Rt 3 cm (2-3.7) TA Tricuspid Annul 2.23 cm <Electronic Signature> 05/26/2025 03:23 PM Terry Kearney M.D. us Genesis Coyne APRN, STITCHDOWNS TOE FORMER-C ECHO Final Result from Last 3 Months Insurance [place] [address] MEDICARE Care Teams Consulting Actuary Relationship Specialty Start Date End Date Maday Lopez MD [address] [place] [address] PCP - General INTERNAL MEDICINE 05/06/24 Genesis Coyne APRN, STITCHDOWNS TOE FORMER-C [address] [place] [address] [phone] NURSE PRACTITIONER 07/27/23 Terry Kearney MD [address] [place] [address] [id number] Consulting Physician INTERVENTIONAL CARDIOLOGY 03/29/25 Kieran Solano MD [address] [place] [phone] ORTHOPAEDIC SURGERY 08/07/25
--- OUTSIDE RECORDS SUMMARY | 2025-08-22 14:50 | XMS_ITS | Encounter Summary ---
Author Organization [facility] Address [facility] [place] [address] Care Team Providers Care Operations Management Professionals Name Role Phone Unavailable Primary Care Provider Unavailabl e Encounter Details Date Type Department Care Team (Late Contact Info) Description 08/12/2025 Results Follow-Up [facility] - Rheumatology [address] [place] [phone] Berta Marroquin MD [address] [place] [phone] Social History Tobacco Use Types Packs/Day Years Used Date Smoking Tobacco: Never Smokeless Tobacco: Never PHQ-2 Answer Date Recorded Patient Health Questionnaire-2 Score 0 12/09/2024 Comments Unknown Sex and Gender Information Value Date Recorded Sex Assigned at Not on file Legal Sex Female 12:32 PM CDT Gender Identity Not on file Sexual Orientation Not on file documented as of this encounter Progress Notes * Berta Marroquin MD - 08/12/2025 8:54 PM CST 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 There is sign of pencil in a cupon x-ray. Psoriatic arthritis is likely. INUM WELDER documented in this encounter Plan of Treatment Upcoming Encounters Date Type Department Care Team (Late Contact Info) Description 02/09/2026 11:40 AM CDT Office Visit [facility] - Rheumatology [address] [place] [address] Berta Marroquin MD [address] [place] [phone] documented as of this encounter Visit Diagnoses Not on filedocumented in this encounter
--- OUTSIDE RECORDS SUMMARY | 2025-08-22 14:50 | XMS_ITS | Encounter Summary ---
Author Organization [facility] Healthcare Address [address] [place] [address] Care Team Providers Care Cheesemaker Helper Name Role Phone Maday Lopez MD Primary Care Provider [phone] López Santiago OT Unavailable Unavailable Encounter Details Date Type Department Care Team (Late st Contact Info) Description 05/26/2024 Telephone [facility] [address] [place] [address] Di Talley, RT Social History Tobacco Use Types Packs/Day Years Used Date Smoking Tobacco: Never Assessed Comments No Sex and Gender Information Value Date Recorded Sex Assigned at Not on file Legal Sex Female 12:29 PM PAPERBOARD MACHINE OPERATOR Gender Identity Not on file Sexual Orientation Not on file documented as of this encounter Plan of Treatment Upcoming Encounters Date Type Department Care Team (Latest Contact Info) Description 09/25/2025 7:30 AM PAPERBOARD MACHINE OPERATOR Hospital Encounter [facility] [address] [place] [address] Kieran Solano MD [address] [place] [address] [address] [place] [address] 09/25/2025 7:30 AM PAPERBOARD MACHINE OPERATOR - 09/25/2025 9:55 AM PAPERBOARD MACHINE OPERATOR Surgery [facility] [address] [place] [address] Kieran Solano MD [address] [facility] [address] [place] [address] Left Total Hip Arthroplasty- Anterior Approach, Depuy- Actis, Omnitrac, Aquamantys, 1 Liter Beta Rinse, Pt to Stay Scheduled Procedures Name Priority Associated Diagnoses Date/Ti me ARTHROPLASTY TOTAL HIP - ANTERIOR APPROACH Primary osteoarthritis of left hip 09/25/2025 7:30 AM PAPERBOARD MACHINE OPERATOR documented as of this encounter Visit Diagnoses Not on filedocumented in this encounter Care Teams Cheesemaker Helper Relationship Specialty Start Date End Date Maday Lopez MD [address] [place] [address] PCP - General Internal Medicine 11/04/23 López Santiago OT Occupational Therapist Occupational Therapy 08/16/25 documented as of this encounter
--- OUTSIDE RECORDS SUMMARY | 2025-08-22 14:50 | XMS_ITS | Encounter Summary ---
Author Organization [facility] Healthcare Address [address] [place] [address] Care Team Providers Care Voice Over Artist Name Role Phone Maday Lopez MD Primary Care Provider [phone] López Santiago OT Unavailable Unavailable Reason for Referral * Cardiology (Routine) - Closed Specialty Diagnoses / Procedures Referred By Contac t Referred To Contact Diagnoses Pre-op testing Procedures ECG 12 lead Kieran Solano MD [address] [place] [address] [address], [place] [address] Phone: tel: [facility] 1 [place] [address] Referral ID Status Reason Start Date Expiration Date Visits Re quested Visits Authorized [id number] Closed 05/16/2025 06/15/2026 1 1 Encounter Details Date Type Department Care Team (Late st Contact Info) Description 05/16/2025 Telephone [facility] Orthopedics and Sports Medicine [address] [facility] [address] [place] [address] Kieran Solano MD [address] [place] [address] [address] [place] [address] Social History Tobacco Use Types Packs/Day Years Used Date Smoking Tobacco: Never Assessed Comments No Sex and Gender Information Value Date Recorded Sex Assigned at Not on file Legal Sex Female 12:29 PM WING COVERER Gender Identity Not on file Sexual Orientation Not on file documented as of this encounter Miscellaneous Notes * Telephone Encounter - Delma Cortes MA - 08/22/2025 2:44 PM WING COVERER Pt called back in. She saw her PCP and surgery will need to be postponed. New date of 09/25/25 given.Chest xray and EKG are still good. I let her know I would check with anesthesia to see if her labs need to be repeated. Pt informed her clearances from Rheum and Cardiology will still be good. She will reach out to her PCP for an updated one since she is sick. I let her know I would reach out once I heard regarding her labs. COVERER * Telephone Encounter - Delma Cortes MA - 08/22/2025 9:59 AM WING COVERER Called and spoke with pt. Symptoms started 2-3 weeks ago for her. Her tested positive for Covid on 08/10. She has tested since he was positive and has been negative. Symptoms include cough, hoarseness, and feeling rundown. Pt is seeing her PCP this afternoon. She is going to call me after she sees him to see what he says. We talked about postponing just a few weeks. Dates of 09/11 and 09/18 (pending Dr. Solano is working) have been held for pt. She will touch base after her appt and wecan go from there. COVERER * Telephone Encounter - Miya Zarate - 08/21/2025 2:52 PM CST Patient called and is needing to know if she is still good for her surgery scheduled on 08/28/25. Patients tested positive for covid over a week ago and she tested negative a week ago. Patientis now starting to feel tired and rundown and her voice is going out she states. Please advise COVERER * Telephone Encounter - Hollie Avila MA - 05/16/2025 4:36 PM CDT Procedure: LTHA [x] Outpatient [] Overnight DOS: 08/28/2025 Surgery Clearance Checklist: [] No Clearance Needed per Physician [x] PCP: John [x] Cardiology: Genesis Goodson [] Endocrinology: [] Pulmonology: [] Neurology: [x] Other: GARLAND Marroquin Blood Thinner: [x] Yes Name of medication: Asprin [] No Is patient a Diabetic: [] Yes [x] No 1. Have you ever had a total joint replacement before? No 2. Have you ever had a problem with anesthesia? Yes Nausea/Vomiting 3. Do you have anyone at home who can care for you? Yes 4. Do you have a preference of home health or outpatient therapy for the first two weeks? 5. Lower extremity only Do you own a walker? Yes 6. What Pharmacy do you prefer - [facility] 7. What outpatient therapy location do you prefer - N/A Reviewed with patient surgery clearance requirements that forms must be returned to our office no later than 72 hours prior to surgery. Later than 72 hours may cause patients surgery to be cancelled and/or rescheduled. Reviewed with patient that appointments with the above provider should be scheduled in a timely manner, and recommend appointments be made no later than 3 weeks prior to surgery. For Total Arthoplasty Surgery: Reviewed with patient labs to be completed prior to surgery, advisedthese must be completed no more than 30 days prior to surgery. Patient was advised to completely these early on in the 30 day window to allow time to address abnormal results if they arise. Labs are to be completed at: [facility] Medications to be discontinued prior to surgery were reviewed with patient, and hand out provided listing when to stop prior to surgery. Patient instructed to contact PCP and/or prescribing provider with questions about when to discontinue prior to surgery. For blood thinners, patient was instructed to speak with prescribing provider about when to discontinue and was advised our office needs documentation on when to stop prior to surgery. This can be completed on the form provided for the patient. Reviewed with patient use of surgical soap prior to surgery. Patient was instructed to use the evening before and the morning of surgery. Advised to not wash hair, face, genital, or rectal area. Patient expressed full understanding of the above in preparation for surgery. Patient was advised to contact our office if any questions or concerns arise prior to surgery. MA/ATC Name: Hollie RMA documented in this encounter Plan of Treatment Upcoming Encounters Date Type Department Care Team (Latest Contact Info) Description 09/25/2025 7:30 AM WING COVERER Hospital Encounter [facility] Operating Room 1 [place] [address] Kieran Solano MD [address] [facility] [address] [place] [address] 09/25/2025 7:30 AM WING COVERER - 09/25/2025 9:55 AM WING COVERER Surgery [facility] 1 [place] [address] Kieran Solano MD [address] [facility] [address] [place] [address] Left Total Hip Arthroplasty- Anterior Approach, Depuy- Actis, Omnitrac, Aquamantys, 1 Liter Beta Rinse, Pt to Stay Scheduled Orders Name Type Priority Associated Diagnoses Orde r Schedule Hemoglobin A1c Lab Routine Pre-op testing Expected: 05/16/2025, Expires: 05/16/2026 Scheduled Procedures Name Priority Associated Diagnoses Date/Ti me ARTHROPLASTY TOTAL HIP - ANTERIOR APPROACH Primary osteoarthritis of left hip 09/25/2025 7:30 AM WING COVERER documented as of this encounter Goals Goal Patient Goal Type Associated Problems Recent Progress Patient-Stated? Author Autogenera andrew Goal Care Plan Autogenerated Problem No Delma Cortes MA documented as of this encounter Results * XR Chest Pa Lateral 2 Views (08/09/2025 1:39 PM WING COVERER) Anatomical Region Laterality Modality Body, Chest N/A Computed Radiogr aphy 08/09/2025 1:50 PM WING COVERER Impressions 08/09/2025 1:50 PM WING COVERER 8 mm nodule in the mid left lung. Recommend further evaluation with CT chest. Electronically signed by: Herman Alcocer MD Narrative 08/09/2025 1:50 PM WING COVERER EXAMINATION: XR CHEST PA LATERAL 2 VIEWS [...] * ECG 12 lead (08/09/2025 1:30 PM WING COVERER) 08/09/2025 1:29 PM WING COVERER Narrative [facility] - 08/09/2025 4:22 PM WING COVERER Vent Rate: 91 bpm RR Interval: 653 msec NE Interval: 135 msec QRS Duration: 96 msec QT Interval: 367 msec QTC Interval: 416 msec P-R-T [place]: 5 - -28 - 30 degrees IMPRESSION: SINUS RHYTHM POSSIBLE ANTERIOR MYOCARDIAL INFARCTION , PROBABLY OLD [30 ms Q WAVE IN V3/V4, OR R < 0.2 mV IN V4] BORDERLINE ECG Electronically Signed By: Bryan Davila MD Kieran Solano MD ECG ORDERABLES Final Re sult [facility] * (ABNORMAL) Urinalysis reflex to microscopic and culture Urine, clean voided (08/09/2025 1:17 PM WING COVERER) Color, ur Yellow Yellow Clarity, ur Clear Clear [facility] ([place]) Specific gravity, ur 1.018 1.003 - 1.030 [facility] ([place]) pH, urine 7.0 [facility] ([place]) Comment: Interpretive Data U rine pH is affected by diet, medications, systemic acid-base disturbances, and renal tubular function. pH may affect urinary stone formation. For example, urine pH below 6.0 may help reduce the tendency for calcium phosphate stones and pH greater than 6.0 may reduce the tendency for uric acid stone formation. Source: [facility] Current Interpretive Data was last revised on [...] ([place]) Urine, clean voided 08/09/2025 1:17 PM WING COVERER 08/09/2025 3:00 PM WING COVERER us Kieran Solano MD LAB MICROBIOLOGY - GENER AL ORDERABLES Final Result [facility] ([place]) [address] [facility] Department [place] [address] * Comprehensive metabolic panel (08/09/2025 1:17 PM WING COVERER) Sodium 138 135 - 145 mmol/L Potassium, pl 4.2 3.3 - 4.9 mmol/L [facility] ([place]) Chloride 103 97 - 110 mmol/L [facility] ([place]) CO2 25 22 - 32 mmol/L [facility] ([place]) Anion gap 10 2 - 15 mmol/L [facility] ([place]) BUN 11 6 - 25 mg/dL [facility] ([place]) Creatinine 0.78 0.60 - 1.10 mg/dL [facility] ([place]) Glucose 96 70 - 199 mg/dL [facility] ([place]) Comment: Interpretive Data Fasting glucose >/= [...] [facility] ([place]) Blood 08/09/2025 1:17 PM WING COVERER 08/09/2025 1:29 PM WING COVERER Kieran Solano MD LAB BLOOD ORDERABLES Fin al Result [facility] ([place]) [address] [facility] Department of Laboratories [place], [place] [id number] * CBC with auto differential (08/09/2025 1:17 PM WING COVERER) WBC 6.49 3.80 - 9.90 K/cumm Hgb 13.4 11.9 - 15.5 g/dL [facility] ([place]) Hct 39.1 35.6 - 45.5 % [facility] ([place]) Plt 201 150 - 400 K/cumm [facility] ([place]) MPV 9.6 9.1 - 12.3 fL [facility] ([place]) RBC 4.31 3.90 - 5.20 M/cumm [facility] ([place]) MCV 90.7 81.3 - 96.4 fL [facility] ([place]) MCH 31.1 27.1 - 33.3 pg [facility] ([place]) MCHC 34.3 32.3 - 35.7 g/dL [facility] ([place]) RDW CV 11.7 11.1 - 14.9 % [facility] ([place]) RDW SD 39.2 35.7 - 48.1 fL [facility] ([place]) NRBC abs 0.00 0.00 - 0.01 K/cumm [facility] ([place]) Blood 08/09/2025 1:17 PM WING COVERER 08/09/2025 1:29 PM WING COVERER us Kieran Solano MD LAB BLOOD ORDERABLES Fin al Result [facility] ([place]) [address] [facility] Department [place] [address] documented in this encounter Visit Diagnoses Diagnosis Pre-op testing- Primary Unspecified pre-operative examination Pre-op testing Unspecified pre-operative examination Pre-op testing Unspecified pre-operative examination Primary osteoarthritis of left hip- Primary Primary osteoarthritis of left hip documented in this encounter Additional Health Concerns Active Problems Noted Date Diagnosed Date Autogenerated Problem 08/15/2025 documented as of this encounter Care Teams Voice Over Artist Relationship Specialty Start Date End Date Maday Lopez MD [address] [place] [address] PCP - General Internal Medicine 11/04/23 López Santiago OT Occupational Therapist Occupational Therapy 08/16/25 documented as of this encounter
== END 2025-08-22 13:46 | disposition home or self-care (01) ==
LOC: CHSLAB 13:47
PROVIDERS: PCP Internal Medicine; Visit Provider Internal Medicine
DX: R05.9 Cough, unspecified (principal); R06.2 Wheezing
CPT/HCPCS: 36415; 71046; 80053; 85027; 87637; 87651

== ENCOUNTER 2025-09-06 12:18 | Outpatient (CLI) | payer MEDICARE, OTHER, SELFPAY ==
--- NOTE | ~2025-09-06 | CT_ITS ---
EXAMINATION:CT diagnostic chest wo con DATE: 09/06/2025 12:37 INDICATION: Nodule TECHNIQUE: Computed tomography (CT) of the chest was performed without intravenous contrast. The dose-length product (DLP) was 211.13 mGy-cm. COMPARISON: None. FINDINGS: 7 mm left lower lobe nodule in the superior segment image 40 series 4. No other suspicious nodules or masses. Lungs are clear. Heart size normal. . Ectatic ascending thoracic aorta measures 3.9 cm. Coronary artery calcifications and/or stenting. Small pericardial effusion. The greatest transverse dimension of the pericardial fluid is approximately 8 mm. The bones appear intact with degenerative changes throughout the thoracic spine. No acute process seen in the visualized portions of the upper abdomen or extrathoracic soft tissues. IMPRESSION: 1. 7 mm left lower lobe nodule. Correlate with follow-up chest CT in 3 months. 2. Small pericardial effusion. 3. Other findings as above. Reviewed, dictated and finalized at location A. OL[facility]ST
--- NOTE | ~2025-09-06 | DEXA_ITS ---
Bone Density Report Name: LUX CABRAL Age: 75 Sex: Female Ethnicity: White Date of : 1950 Indication: postmenopausal; screening for osteoporosis; asthma or emphysema; Referring Provider: Maday Lopez Study: Bone densitometry was performed. Exam Date: September 06, 2025 Accession number: [id number] Bone Density: Region BMD T-score Z-score Classification AP Spine(L1-L4) 1.068 0.2 2.5 Normal Femoral Neck (Left) 0.821 -0.3 1.8 Normal Total Hip (Left) 0.931 -0.1 1.7 Normal Femoral Neck (Right) 0.619 -2.1 0.0 Osteopenia Total Hip (Right) 0.933 -0.1 1.7 Normal Femoral Neck Mean 0.720 -1.2 0.9 Osteopenia Total Hip Mean 0.932 -0.1 1.7 Normal World Health Organization criteria for BMD impression classify patients as: Normal (T-score at or above -1.0), Osteopenia (T-score between -1.0 and -2.5), or Osteoporosis (T-score at or below -2.5). 10-year Fracture Risk: FRAX not reported because: Treated for osteoporosis Clinical Information Provided by Patient: Is being treated for osteoporosis Has used the following medications: Reclast (i.e. zoledronate), Prolia (i.e. denosumab), Vitamin D Has the following medical conditions: Asthma or Emphysema Menopause Age: 51 No regular weight bearing exercise Does not regularly consume dairy products Drinks caffeinated beverages Onset of menses at age 14 Number of children 4 Impression: The patient has low bone mass, based on the Right Femoral Neck T-score. Discussion: It is important to ask patients whether they are taking their medications and to encourage continued and appropriate compliance with their osteoporosis therapies to reduce fracture risk. It is also important to review their risk factors and encourage appropriate calcium and vitamin D intakes, exercise, fall prevention and other lifestyle measures. Follow-Up: Consider a repeat BMD and Vertebral Fracture Assessment (VFA) exam in 2 years or sooner if medically necessary, to reassess this patient's status. Reported by: NEEL on 09/08/2025 3:28:00 PM. Reviewed, dictated and finalized at location A.
--- OUTSIDE RECORDS SUMMARY | 2025-09-06 14:12 | XMS_ITS | Encounter Summary ---
Author Organization [facility] Address [address] [place] [address] Care Team Providers Care Delicatessen Clerk Name Role Phone Genesis Coyne APRN, CHAIN HOIST OPERATOR-C Unavailable Maday Lopez MD Primary Care Provider Jasmin Coronado MD Unavailable [phone] Bob Kearney MD Unavailable [phone] Kieran Solano MD Unavailable [phone] Encounter Details Date Type Department Care Team (Late st Contact Info) Description 05/06/2024 MyChart Message Enc [facility] eld [address] [place] [address] Genesis Coyne APRN, CHAIN HOIST OPERATOR-C [address] [facility] [address] [place] [address] Hi Social History Tobacco Use [...] Info) Description 05/29/2026 10:00 AM CDT Appointment [facility] - [facility] [address] [place] [address] Genesis Coyne APRN, CHAIN HOIST OPERATOR-C [address] [phone] 05/29/2026 11:30 AM CDT Office Visit [facility] [address] [place] [phone] Genesis Coyne APRN, CHAIN HOIST OPERATOR-C [address] [address] documented as of this encounter Visit Diagnoses Not on filedocumented in this encounter Care Teams Delicatessen Clerk Relationship Specialty Start Date End Date Maday Lopez MD [address] [place] [address] PCP - General INTERNAL MEDICINE 05/06/24 Genesis Coyne APRN, CHAIN HOIST OPERATOR-C [address] [place] [phone] NURSE PRACTITIONER 07/27/23 Jasmin Coronado MD [address] [place] [phone] INTERVENTIONAL CARDIOLOGY 05/08/24 03/28/25 Bob Kearney MD [address] [place] [address] [id number] Consulting Physician INTERVENTIONAL CARDIOLOGY 03/29/25 Kieran Solano MD [address] [place] [address] [address], [place] [phone] ORTHOPAEDIC SURGERY 08/07/25 documented as of this encounter
--- OUTSIDE RECORDS SUMMARY | 2025-09-06 14:12 | XMS_ITS | Clinical Summary ---
Author Organization [facility] Address [facility] [place] [address] Care Team Providers Care Baker Pie Name Role Phone Genesis Coyne APRN, NP-C Unavailable [phone] Maday Lopez MD Primary Care Provider [phone] Bob Kearney MD Unavailable Kieran Solano MD Unavailable [phone] Allergies Active Allergy Reactions Criticality Noted [...] (400 Units total) by mouth daily. Active [place]-3 Fatty Acids (FISH OIL) 1200 MG Cap [...] Resolved Date Coronary artery disease invo lving salamatof heart without angina pectoris 12/11/2022 12/11/2022 Encounters Date Type Department Care Team Description 08/07/2025 [facility]phone [facility] [facility] [address] [place] [address] Genesis Coyne, INTERNET E COMMERCE SPECIALIST, SETUP TECHNICIAN-C Surgical Clearance from Last 3 Months Family History Medical [...] Info) Description 05/29/2026 10:00 AM CDT Appointment [facility] Non Invasive [facility] - [facility] [address] [place] [address] Genesis Coyne, INTERNET E COMMERCE SPECIALIST, SETUP TECHNICIAN-C [address] [facility] [address] [place] [address] 05/29/2026 11:30 AM CDT [facility] [address] [place] [phone] Genesis Coyne, INTERNET E COMMERCE SPECIALIST, SETUP TECHNICIAN-C [address] [facility] [address] [place] [address] Health Maintenance Due Date Last Done Comments [...] this topic Medical Devices Implanted Type Area Supervisor [employer] Device Identifier Shelf Expiration Date Model / Serial / Lot Cv Xience 2.5mm X 28mm Mt Prox Diag1- 3 Implanted:11/20 by Jasmin Coronado MD (Quantity not on file) Stent Coronary [employer] 12/30/2023 [id number] [place] [address] [place] [address] MEDICARE Care Teams Baker Pie Relationship Specialty Start Date End Date Maday Lopez MD [address] [place] [phone] PCP - General INTERNAL MEDICINE 05/06/24 Genesis Coyne APRN, SETUP TECHNICIAN-C [address] [place] [address] [phone] NURSE PRACTITIONER 07/27/23 Bob Kearney MD [address] [place] [address] Consulting Physician INTERVENTIONAL CARDIOLOGY 03/29/25 Kieran Solano MD [address] [place] [phone] ORTHOPAEDIC SURGERY 08/07/25
--- OUTSIDE RECORDS SUMMARY | 2025-09-06 14:12 | XMS_ITS | Clinical Summary ---
Author Organization [facility] Address [address] [place] [address] Care Team Providers Care Final Block Press Operator Name Role Phone Unavailable Primary Care Provider Unavailabl e Source Comments [facility],non-[facility] Affiliates and Associated Physician Practices is amultiple site organization consisting of ambulatory clinics and hospital sitesin [place], [place], [place] and [place]. This disclosure is being madepursuant to the Care Everywhere program and may not contain all information available regarding this patient. Last updated 18.[facility] Allergies Active Allergy Reactions Criticality Noted Date [...] TO THE BACK OF SCALP 2024 Active colgmdyc-ohqatzgga-yw xameth (Maxitrol) ophthalmic suspension prn 2024 Active meloxicam (Mobic) 7.5 MG tablet TAKE 1 TABLET BY MOUTH TWICE A DAY NEEDED FOR PAIN 90 tablet 2024 Active Additional Information Patient taking differently:7.5 mg OralAS DIRECTED, 1 tablet everyday, Reported on 08/11/2025 Blood Glucose Monitoring Suppl (Accu-Chek Guide Id) w/Device KIT USE DIRECTED TO TEST GLUCOSE ONCE DAILY 2024 Active Prolia 60 MG/ML SC injection INJECT 1 ML UNDER THE SKIN EVERY 6 MONTHS. INJECT IN EITHER THE UPPER ARM, UPPER THIGH, OR ABDOMEN Active famotidine (Pepcid) 20 MG tablet 2024 Active SOFTCLIX LANCETS MIS USE NEW LANCET TO CHECK GLUCOSE ONCE DAILY 2024 Active verapamil CR (Isoptin-SR) 180 MG tablet Take 1 (one) tablet by mouth 2024 Active hydroxychloroquine (Plaquenil) 200 MG tabletIndications:Sjo gren's syndrome, with unspecified organ involvement (HCC),Polyarthritis TAKE 1 (ONE) TABLET BY MOUTH 2 TIMES DAILY 180 tablet 2 2024 Active hydroxychloroquine (Plaquenil) 200 MG tabletIndications:Sjo gren's syndrome, with unspecified organ involvement (HCC),Polyarthritis Take 1 (one) tablet by mouth 2 times daily 180 tablet 2 09/05 Discontinued azithromycin (Zithromax) 250 MG tablet Take 2 (two) tablets by mouth once daily for 1 day, THEN 1 (one) tablet once daily for 4 days. 6 tablet 08/16 Encounters Date Type Department Care Team Description 09/04/2025 Refill [facility] - Rheumatology [address] [place] [address] Berta Marroquin MD Refill Request 08/12/2025 Results Follow-Up [facility] - Rheumatology [address] [place] [address] Berta Marroquin MD 08/11/2025 11:31 AM SALES AND SERVICE OFFICER - 08/11/2025 11:59 PM SALES AND SERVICE OFFICER Hospital Encounter [facility] - Medical Imaging [address] [place] [phone] Berta Marroquin MD Discharge Disposition: Home or Self Care 08/11/2025 10:20 AM SALES AND SERVICE OFFICER Office Visit [facility] - Rheumatology [address] [place] [address] Berta Marroquin MD Arthritis of both hands (Primary Dx); Sjogren's syndrome, with unspecified organ involvement (HCC) 07/26/2025 Refill [facility] - Rheumatology [address] [place] [address] Berta Marroquin MD Refill Request 06/13/2025 Refill [facility] - Rheumatology [address] [place] [address] Berta Marroquin MD Refill Request from Last [...] Comments Blood Pressure 128/73 08/11/2025 10:16 AM SALES AND SERVICE OFFICER Pulse 78 08/11/2025 10:16 AM SALES AND SERVICE OFFICER Temperature - - Respiratory Rate 16 12/09/2024 10:42 AM CDT Oxygen Saturation 97% 08/11/2025 10:16 AM SALES AND SERVICE OFFICER Inhaled Oxygen Concentration - - Weight 82.1 kg (181 lb) 08/11/2025 10:16 AM SALES AND SERVICE OFFICER Height 162.6 cm (5' 4) 03/15/2024 9:58 AM CDT Body Mass Index 31.07 03/15/2024 9:58 AM CDT Plan of Treatment Upcoming Encounters Date Type Department Care Team (Late st Contact Info) Description 02/09/2026 11:40 AM CDT Office Visit [facility] - Rheumatology [address] [place] [address] Berta Marroquin MD [address] [place] [phone] Health Maintenance Due Date Last Done [...] of 2) 2001 COVID-19 VACCINE (3 - 2024- season) 2025 05/17/2021, 04/18/2021 INFLUENZA VACCINE (#1) [...] 3VW OR MORE Routine 08/11/2025 11:50 AM SALES AND SERVICE OFFICER Arthritis of both hands from Last 3 Months Results * XR Hand Bilat 3Vw or More (08/11/2025 11:50 AM SALES AND SERVICE OFFICER) Anatomical Region Laterality Modality Upper Extremity, Wrist / Hand Ra diographic Imaging 08/11/2025 12:3 1 PM SALES AND SERVICE OFFICER Narrative 08/11/2025 12:37 PM SALES AND SERVICE OFFICER PROCEDURE: XR HAND BILAT 3VW OR MORE [...] Result from Last 3 Months Insurance MEDICARE [facility]
--- OUTSIDE RECORDS SUMMARY | 2025-09-06 14:12 | XMS_ITS | Encounter Summary ---
Author Organization [facility] Address [facility] [place] [address] Care Team Providers Care Manufacturing Maintenance Technician Name Role Phone Shabbir Montoya MD Primary Care Provider [phone] Anjum Orozco MD Unavailable [phone] Genesis Coyne APRN, RUNNER OUT-C Unavailable Maday Lopez MD Primary Care Provider [phone] Jasmin Coronado MD Unavailable [phone] Bob Kearney MD Unavailable [phone] Kieran Solano MD Unavailable [phone] Encounter Details Date Type Department Care Team (Late Contact Info) Description 01/19/2023 Abstract [facility] [address] [place] [address] Anjum Orozco MD [address] [place] [address] Social History Tobacco Use Types [...] Info) Description 05/29/2026 10:00 AM CDT Appointment [facility] Non Invasive Cardiology - [facility] [address] [place] [address] Genesis Coyne APRN, RUNNER OUT-C [address] [phone] 05/29/2026 11:30 AM CDT Office Visit [facility] [address] [place] [phone] Genesis Coyne APRN, RUNNER OUT-C [address] [address] documented as of this encounter Visit Diagnoses Not on filedocumented in this encounter Care Teams Manufacturing Maintenance Technician Relationship Specialty Start Date End Date Shabbir Montoya MD [address] [place] [address] PCP - General INTERNAL MEDICINE 09/30/22 05/05/24 Maday Lopez MD [address] [place] [address] PCP - General INTERNAL MEDICINE 05/06/24 Anjum Orozco MD [address] [place] [phone] Consulting Physician CARDIOVASCULAR DISEASE 07/27/23 Genesis Coyne APRN, RUNNER OUT-C [address] [phone] NURSE PRACTITIONER 07/27/23 Jasmin Coronado MD [address] [place] [address] INTERVENTIONAL CARDIOLOGY 05/08/24 03/28/25 Bob Kearney MD [address] [place] [address] Consulting Physician INTERVENTIONAL CARDIOLOGY 03/29/25 Kieran Solano MD [address] [place] [phone] ORTHOPAEDIC SURGERY 08/07/25 documented as of this encounter
--- OUTSIDE RECORDS SUMMARY | 2025-09-06 14:12 | XMS_ITS | Clinical Summary ---
Author Organization [facility] Address [address] [place] [address] Care Team Providers Care Cementer Machine Applicator Name Role Phone Maday Lopez MD Primary Care Provider [phone] López Santiago OT Unavailable Unavailable Allergies Active [...] mg total) by mouth nightly Active coenzyme B23-juancnt E 100-5 mg-unit capsule Take 100 mg [...] Type Department Care Team Description 08/16/[address] [facility] Orthopedics and Sports Medicine [address] [facility] [address] [place] [address] Kieran Solano MD Surgical Clearance (Surgical clearances, PCP, Cardio,Rhum and pre booking sheet f) 08/09/2025 1:05 PM BUSINESS REPORTING DEVELOPER Lab [address] [address] Pre-op testing 08/09/2025 12:59 PM BUSINESS REPORTING DEVELOPER - 08/09/2025 11:59 PM BUSINESS REPORTING DEVELOPER Hospital Encounter [facility] Cardiology [address] [place] [address] Pre-op testing Discharge Disposition: Discharge to home or self care 08/09/2025 12:55 PM BUSINESS REPORTING DEVELOPER - 08/09/2025 11:59 PM BUSINESS REPORTING DEVELOPER Hospital Encounter [facility] 1 [place] [address] Pre-op testing Discharge Disposition: Discharge to home or self care 08/09/2025 Orders Only [facility] Orthopedics and Sports Medicine [address] [place] [address] [address] [place] [address] Maday Lopez MD 08/09/2025 Telephone [facility] Orthopedics and Sports Medicine 4 [facility] [address] [place] [address] Kieran Solano MD from Last [...] on file Legal Sex Female 12:29 PM BUSINESS REPORTING DEVELOPER Gender Identity Not on file Sexual Orientation [...] (Latest Contact Info) Description 09/25/2025 7:30 AM BUSINESS REPORTING DEVELOPER Hospital Encounter [facility] Operating Room 1 [place] [address] Kieran Solano MD [address] [place] [address] [address] [place] [address] 09/25/2025 7:30 AM BUSINESS REPORTING DEVELOPER - 09/25/2025 9:55 AM BUSINESS REPORTING DEVELOPER Surgery [facility] Operating Room 1 [place] [address] Kieran Solano MD [address] [place] [address] [address] [place] [address] Left Total Hip Arthroplasty- Anterior Approach, Depuy- Actis, Omnitrac, Aquamantys, 1 Liter Beta Rinse, Pt to Stay Scheduled Procedures Name Priority Associated Diagnoses Date/Ti me ARTHROPLASTY TOTAL HIP - ANTERIOR APPROACH Primary osteoarthritis of left hip 09/25/2025 7:30 AM BUSINESS REPORTING DEVELOPER Health Maintenance Due Date Last Done Comments [...] (Appt Today, Awaiting Results) 08/09/2025 1:39 PM BUSINESS REPORTING DEVELOPER Pre-op testing ECG 12-LEAD Routine 08/09/2025 1:30 PM BUSINESS REPORTING DEVELOPER Pre-op testing URINALYSIS, MICROSCOPIC ONLY Routine 08/09/2025 1:17 PM BUSINESS REPORTING DEVELOPER Pre-op testing EGFR Routine 08/09/2025 1:17 PM BUSINESS REPORTING DEVELOPER Pre-op testing DIFFERENTIAL AUTO Routine 08/09/2025 1:1 7 PM BUSINESS REPORTING DEVELOPER Pre-op testing CBC WITH AUTO DIFFERENTIAL Routine 08/09/2025 1:17 PM BUSINESS REPORTING DEVELOPER Pre-op testing COMPREHENSIVE METABOLIC PANEL Routine 08/09/2025 1:17 PM BUSINESS REPORTING DEVELOPER Pre-op testing URINALYSIS AND REFLEX TO MICROSCOPIC AND CULTURE Routine 08/09/2025 1:17 PM BUSINESS REPORTING DEVELOPER Pre-op testing HEMOGLOBIN A1C Routine 07/15/2025 2:10 PM CDT SCREENING MAMMOGRAM BILATERAL W MELANIE Schedule Routine, Read Routine (OP Routine) 02/09/2025 9:18 AM CDT Screening mammogram, encounter for from Last 3 Months or Most Recently Relevant to Health Maintenance Results * XR Chest Pa Lateral 2 Views (08/09/2025 1:39 PM BUSINESS REPORTING DEVELOPER) Anatomical Region Laterality Modality Body, Chest N/A Computed Radiogr aphy 08/09/2025 1:50 PM BUSINESS REPORTING DEVELOPER Impressions 08/09/2025 1:50 PM BUSINESS REPORTING DEVELOPER 8 mm nodule in the mid left lung. Recommend further evaluation with CT chest. Electronically signed by: Herman Alcocer MD Narrative 08/09/2025 1:50 PM BUSINESS REPORTING DEVELOPER EXAMINATION: XR CHEST PA LATERAL 2 VIEWS [...] * ECG 12 lead (08/09/2025 1:30 PM BUSINESS REPORTING DEVELOPER) 08/09/2025 1:29 PM BUSINESS REPORTING DEVELOPER Narrative [facility] - 08/09/2025 4:22 PM BUSINESS REPORTING DEVELOPER Vent Rate: 91 bpm RR Interval: 653 msec MI Interval: 135 msec QRS Duration: 96 msec QT Interval: 367 msec QTC Interval: 416 msec P-R-T Viola: 5 - -28 - 30 degrees IMPRESSION: SINUS RHYTHM POSSIBLE ANTERIOR MYOCARDIAL INFARCTION , PROBABLY OLD [30 ms Q WAVE IN V3/V4, OR R < 0.2 mV IN V4] BORDERLINE ECG Electronically Signed By: Bryan Davila MD Kieran Solano MD ECG ORDERABLES Final Re sult [facility] * eGFR (08/09/2025 1:17 PM BUSINESS REPORTING DEVELOPER) eGFR 80 >=60 mL/min/1. 73 m2 Comment: [...] last reviewed 2021. Blood 08/09/2025 1:17 PM BUSINESS REPORTING DEVELOPER 08/09/2025 1:29 PM BUSINESS REPORTING DEVELOPER us Kieran Solano MD LAB BLOOD ORDERABLES Fin al Result [facility] [address] [facility] [place] [address] * (ABNORMAL) Differential, auto (08/09/2025 1:17 PM BUSINESS REPORTING DEVELOPER) Neutrophil abs 5.29 1.50 - 6.50 K/cumm [...] revised on 2017. Blood 08/09/2025 1:17 PM BUSINESS REPORTING DEVELOPER 08/09/2025 1:29 PM BUSINESS REPORTING DEVELOPER us Kieran Soalno MD LAB BLOOD ORDERABLES Fin al Result [facility] ([place] [address] [facility] [place] [address] * (ABNORMAL) Urinalysis reflex to microscopic and culture Urine, clean voided (08/09/2025 1:17 PM BUSINESS REPORTING DEVELOPER) Color, ur Yellow Yellow Clarity, ur Clear [...] tendency for uric acid stone formation. Source: [facility] [employer] Current Interpretive Data was last revised on [...] ([place]) Urine, clean voided 08/09/2025 1:17 PM BUSINESS REPORTING DEVELOPER 08/09/2025 3:00 PM BUSINESS REPORTING DEVELOPER Kieran Solano MD LAB MICROBIOLOGY - GENER AL ORDERABLES Final Result Performing Organization Address [facility] Co de Phone Number [facility] ([place] [address] [facility] [employer] [address] * CBC with auto differential (08/09/2025 1:17 PM BUSINESS REPORTING DEVELOPER) WBC 6.49 3.80 - 9.90 K/cumm Hgb [...] [facility] ([place]) Blood 08/09/2025 1:17 PM BUSINESS REPORTING DEVELOPER 08/09/2025 1:29 PM BUSINESS REPORTING DEVELOPER Kieran Solano MD LAB BLOOD ORDERABLES Fin al Result Performing Organization Address City/[facility]/ZIP Co de Phone Number [facility] ([place]) 1 [facility] [place] [address] * (ABNORMAL) Urinalysis, microscopic only (08/09/2025 1:17 PM BUSINESS REPORTING DEVELOPER) WBC, ur 6-10(A) 0 - 5 /HPF RBC, ur 0-2 0 - 2 /HPF [facility] ([place]) Epithelial cells, squamous, ur 1-5 0 - 5 /HPF [facility] ([place]) Mucous, ur Present(A) [facility] ([place]) Hyaline casts, ur 1-5 0 - 10 /LPF [facility] ([place]) Culture Reflex Comment Reflex conditions for urine culture (WBC >10) not met. [facility] ([place]) Urine, clean voided 08/09/2025 1:17 PM BUSINESS REPORTING DEVELOPER 08/09/2025 3:00 PM BUSINESS REPORTING DEVELOPER us Kieran Solano MD LAB URINE ORDERABLES [facility] al Result [facility] ([place]) [address] [facility] [place] [address] * Comprehensive metabolic panel (08/09/2025 1:17 PM BUSINESS REPORTING DEVELOPER) Sodium 138 135 - 145 mmol/L Potassium, pl 4.2 3.3 - 4.9 mmol/L [facility] ([place]) Chloride 103 97 - 110 mmol/L [facility] ([place]) CO2 25 22 - 32 mmol/L [facility] ([place]) Anion gap 10 2 - 15 mmol/L [facility] ([place]) BUN 11 6 - 25 mg/dL [facility] ([place]) Creatinine 0.78 0.60 - 1.10 mg/dL [facility] ([place]) Glucose 96 70 - 199 mg/dL [facility] ([place]) Comment: Interpretive Data Fasting glucose >/= [...] [facility]) Blood 08/09/2025 1:17 PM BUSINESS REPORTING DEVELOPER 08/09/2025 1:29 PM BUSINESS REPORTING DEVELOPER us Kieran Solano MD LAB BLOOD ORDERABLES Fin al Result [facility] ([place] [address] [facility] [place] [address] * Hemoglobin A1c (07/15/2025 2:10 PM CDT) [...] Diagnosed Date Autogenerated Problem 08/15/2025 Insurance MEDICARE [facility] [employer] Address: [facility] [address] [address] [place] [address] [place] [address] Care Teams Cementer Machine Applicator Relationship Specialty Start Date End Date Maday Lopez MD [address] [place] [address] PCP - General Internal Medicine 11/04/23 López Santiago OT Occupational Therapist Occupational Therapy 08/16/25
--- OUTSIDE RECORDS SUMMARY | 2025-09-06 14:13 | XMS_ITS | Encounter Summary ---
Author Organization [facility] Healthcare Address [address] [place] [address] Care Team Providers Care Pie Icer Machine Name Role Phone Maday Lopez MD Primary Care Provider [phone] López Santiago OT Unavailable Unavailable Encounter Details Date Type Department Care Team (Late st Contact Info) Description 05/26/2024 Telephone [facility] 1 [place] [address] Di Talley, RT Social History Tobacco Use Types Packs/Day Years Used Date Smoking Tobacco: Never Assessed Comments No Sex and Gender Information Value Date Recorded Sex Assigned at Not on file Legal Sex Female 12:29 PM SALES OPERATIONS ASSISTANT Gender Identity Not on file Sexual Orientation Not on file documented as of this encounter Plan of Treatment Upcoming Encounters Date Type Department Care Team (Latest Contact Info) Description 09/25/2025 7:30 AM SALES OPERATIONS ASSISTANT Hospital Encounter [facility] Operating Room 1 [place] [address] Kieran Solano MD [address] [place] [address] [address] [place] [address] 09/25/2025 7:30 AM SALES OPERATIONS ASSISTANT - 09/25/2025 9:55 AM SALES OPERATIONS ASSISTANT Surgery [facility] Operating Room 1 [place] [address] Kieran Solano MD [address] [facility] [address] [place] [address] Left Total Hip Arthroplasty- Anterior Approach, Depuy- Actis, Omnitrac, Aquamantys, 1 Liter Beta Rinse, Pt to Stay Scheduled Procedures Name Priority Associated Diagnoses Date/Ti me ARTHROPLASTY TOTAL HIP - ANTERIOR APPROACH Primary osteoarthritis of left hip 09/25/2025 7:30 AM SALES OPERATIONS ASSISTANT documented as of this encounter Visit Diagnoses Not on filedocumented in this encounter Care Teams Pie Icer Machine Relationship Specialty Start Date End Date Maday Lopez MD [address] [place] [address] PCP - General Internal Medicine 11/04/23 López Santiago OT Occupational Therapist Occupational Therapy 08/16/25 documented as of this encounter
--- OUTSIDE RECORDS SUMMARY | 2025-09-06 14:13 | XMS_ITS | Clinical Summary ---
[facility] Address [address] [place] [address] Phone Care Team Providers Care Hand Almond Blancher Name Role Phone Unavailable Primary Care Provider [...] on file Legal Sex Female 1:55 PM REGRIND MILL OPERATOR Gender Identity Not on file Sexual [...] MEDICARE PART A AND B [facility] [facility]
--- OUTSIDE RECORDS SUMMARY | 2025-09-06 14:13 | XMS_ITS | Encounter Summary ---
Author Organization [facility] Address [facility] [place] [address] Care Team Providers Care Bag Loader Name Role Phone Unavailable Primary Care Provider Unavailabl e Encounter Details Date Type Department Care Team (Late Contact Info) Description 08/12/2025 Results Follow-Up [facility] - Rheumatology [address] [place] [address] Berta Marroquin MD [address] [place] [phone] Social History Tobacco Use Types Packs/Day [...] a cupon x-ray. Psoriatic arthritis is likely. TICAL SCIENCE FACULTY MEMBER documented in this encounter Plan of Treatment Upcoming Encounters Date Type Department Care Team (Late Contact Info) Description 02/09/2026 11:40 AM CDT Office Visit [facility] - Rheumatology [address] [place] [address] Berta Marroquin MD [address] [place] [address] documented as of this encounter Visit Diagnoses Not on filedocumented in this encounter
--- OUTSIDE RECORDS SUMMARY | 2025-09-06 14:13 | XMS_ITS | Encounter Summary ---
Author Organization [facility] Address [facility] [place] [address] Care Team Providers Care Ball Ender Name Role Phone Shabbir Montoya MD Primary Care Provider [phone] Anjum Orozco MD Unavailable [phone] Genesis Coyne APRN, RETAIL SALES REPRESENTATIVE-C Unavailable [phone] Maday Lopez MD Primary Care Provider [phone] Jasmin Coronado MD Unavailable [phone] Bob Kearney MD Unavailable [phone] Kieran Solano MD Unavailable [phone] Encounter Details Date Type Department Care Team (Late st Contact Info) Description 12/04/2022 Hospital Orders Only [facility] [address] [place] [address] Anjum Orozco MD [address] [place] [address] Social History Tobacco Use Types [...] Coronavirus/COVID-19? No / Unsure 11/11/2022 6:58 AM PHARMACOMETRICIAN documented as of this encounter Plan of Treatment Upcoming Encounters Date Type Department Care Team (Late st Contact Info) Description 05/29/2026 10:[address] [facility] Non Invasive Cardiology - [facility] [address] [place] [address] Genesis Coyne APRN, RETAIL SALES REPRESENTATIVE-C [address] [phone] 05/29/2026 11:30 AM CDT Office Visit [facility] [address] [place] [address] Genesis Coyne APRN, RETAIL SALES REPRESENTATIVE-C [address] [address] documented as of this encounter Visit Diagnoses Not on filedocumented in this encounter Care Teams Ball Ender Relationship Specialty Start Date End Date Shabbir Montoya MD [address] [place] [address] PCP - General INTERNAL MEDICINE 09/30/22 05/05/24 Maday Lopez MD [address] [place] [address] PCP - General INTERNAL MEDICINE 05/06/24 Anjum Orozco MD [address] [place] [phone] Consulting Physician CARDIOVASCULAR DISEASE 07/27/23 Genesis Coyne APRN, RETAIL SALES REPRESENTATIVE-C [address] [facility] [address] [place] [address] NURSE PRACTITIONER 07/27/23 Jasmin Coronado MD [address] [place] [address] INTERVENTIONAL CARDIOLOGY 05/08/24 03/28/25 Bob Kearney MD [address] [place] [address] Consulting Physician INTERVENTIONAL CARDIOLOGY 03/29/25 Kieran Solano MD [address] [phone] ORTHOPAEDIC SURGERY 08/07/25 documented as of this encounter
--- OUTSIDE RECORDS SUMMARY | 2025-09-06 14:13 | XMS_ITS | Encounter Summary ---
Author Organization [facility] Address [address] [place] [address] [place] [address] Care Team Providers Care Ranch Hand Supervisor Name Role Phone Unavailable Primary Care Provider Unavailabl e Reason for Visit * Reason Comments Refill Request Encounter Details Date Type Department Care Team (Late st Contact Info) Description 09/04/2025 Refill [facility] - Rheumatology [address] [place] [address] Berta Marroquin MD [address] [place] [address] Refill Request Social History Tobacco Use Types Packs/Day Years [...] encounter Miscellaneous Notes * Telephone Encounter - Polly Villalta - 09/05/2025 9:30 AM CST NON-BIOLOGIC REFILL REQUEST Last OV: 08/11/2025 Next Appointment: 02/09/2026 Last Fill: 12/09/2024 Recent Labs Component Name 03/15/24 1050 06/26/23 1040 05/09/22 1108 WBC 4.0 4.2* 8.8 HGB 13.7 13.7 14.7 PLTCOUNT 191 207 240 MCV 93.4 92.7 94.0 Recent Labs Component Name 03/15/24 1050 06/26/23 1040 05/09/22 1108 CREATININE 0.80 0.75 0.78 BUN 11 11 17 SODIUM 141 141 138 POTASSIUM 3.8 4.1 3.6 Recent Labs Component Name 03/15/24 1050 06/26/23 1040 05/09/22 1108 EGFR 78* 85* 82* Recent Labs Component Name 03/15/24 1050 06/26/23 1040 05/09/22 1108 AST 21 22 19 ALT 14 19 35 ALKPHOS 61 62 75 TBIL 0.7 0.8 0.7 Last ESR: Recent Labs Component Name 03/15/24 1050 06/26/23 1040 05/09/22 1108 SEDRATE 4 4 10 Last 3 CRP: Recent Labs Component Name 03/15/24 1050 06/26/23 1040 05/09/22 1108 CRP 0.08 0.09 <0.20 Last Eye exam (if refill for hydroxychloroquine): 10/03/2024 CENTER TECHNICIAN documented in this encounter Plan of Treatment Upcoming Encounters Date Type Department Care Team (Late st Contact Info) Description 02/09/2026 11:40 AM CDT Office Visit [facility] - Rheumatology [address] [place] [address] Berta Marroquin MD [address] [place] [phone] documented as of this encounter Visit Diagnoses Diagnosis Sjogren's syndrome, with unspecified organ involvement (HCC) Polyarthritis Unspecified polyarthropathy or polyarthritis, site unspecified documented in this encounter
--- OUTSIDE RECORDS SUMMARY | 2025-09-06 14:13 | XMS_ITS | Encounter Summary ---
Author Organization [facility] Address [facility] [place] [address] Care Team Providers Care High School Football Coach Name Role Phone Shabbir Montoya MD Primary Care Provider [phone] Anjum Orozco MD Unavailable [phone] Genesis Coyne APRN DIRECTOR EXPERIMENTAL MEDICINE-C Unavailable Maday Lopez MD Primary Care Provider [phone] Jasmin Coronado MD Unavailable [phone] Bob Kearney MD Unavailable [phone] Kieran Solano MD Unavailable [phone] Encounter Details Date Type Department Care Team (Late st Contact Info) Description 10/17/2022 Abstract [facility] [address] [place] [address] Anjum Orozco MD [address] [place] [address] Social History Tobacco Use Types [...] Coronavirus/COVID-19? No / Unsure 10/20/2022 8:15 AM SENIOR MEDICAL DIRECTOR documented as of this encounter Plan of Treatment Upcoming Encounters Date Type Department Care Team (Late st Contact Info) Description 05/29/2026 10:00 AM CDT Appointment [facility] Non Invasive Cardiology - [facility] [address] [place] [address] Genesis Coyen APRN, DIRECTOR EXPERIMENTAL MEDICINE-C [address] [phone] 05/29/2026 11:30 AM CDT [facility] [address] [place] [address] Genesis Coyne APRN, DIRECTOR EXPERIMENTAL MEDICINE-C [address] [address] documented as of this encounter Procedures Procedure Name Priority Date/Time Associated Diagnosis Comments CMP (ABSTRACTED LAB) Routine 10/01/2022 HEMOGLOBIN, GLYCOSYLATED Routine 10/01/2022 documented in this encounter Results * HEMOGLOBIN, GLYCOSYLATED (10/01/2022) Pathologist [facility] HGB A1C 6.7 <5.7 % 10/01/2022 us [...] on filedocumented in this encounter Care Teams High School Football Coach Relationship Specialty Start Date End Date Shabbir Montoya MD [address] [place] [phone] PCP - General INTERNAL MEDICINE 09/30/22 05/05/24 Maday Lopez MD [address] [place] [phone] PCP - General INTERNAL MEDICINE 05/06/24 Anjum Orozco MD [address] [place] [phone] Consulting Physician CARDIOVASCULAR DISEASE 07/27/23 Genesis Coyne, CHILD LIFE SPECIALIST, DIRECTOR EXPERIMENTAL MEDICINE-C [address] [place] [address] [address] [place] [phone] NURSE PRACTITIONER 07/27/23 Jasmin Coronado MD [address] [place] [phone] INTERVENTIONAL CARDIOLOGY 05/08/24 03/28/25 Bob Kearney MD [address] [place] [address] Consulting Physician INTERVENTIONAL CARDIOLOGY 03/29/25 Kieran Solano MD [address] [facility] [address], [place] [address] ORTHOPAEDIC SURGERY 08/07/25 documented as of this encounter
== END 2025-09-06 12:19 | disposition home or self-care (01) ==
LOC: CHSIMG 12:20
PROVIDERS: PCP Internal Medicine; Visit Provider Internal Medicine
DX: Z78.0 Asymptomatic menopausal state (principal); R91.1 Solitary pulmonary nodule; M85.89 Other specified disorders of bone density and structure, multiple sites; I31.39 Other pericardial effusion (noninflammatory)
CPT/HCPCS: 71250; 77080